=== PATIENT | male | born 1985 | race Caucasian/White ===

== ENCOUNTER → 2016-11-11 | Outpatient (CLI) | payer BC | LOC: MW.CHFP 14:38 | PROVIDERS: ATTEND Physician Assistant | DX: Z13.1 Encounter for screening for diabetes mellitus (principal); S39.012A Strain of muscle, fascia and tendon of lower back, initial encounter; M25.50 Pain in unspecified joint | CPT/HCPCS: 36415; 83036; 84550; 86200 ==

== ENCOUNTER 2017-02-14 19:07 | Emergency (ER) | payer BC ==
--- NOTE | 2017-02-14 19:59 | EDM.PDOC ---
ED HPI GENERAL MEDICAL PROBLEM - General Chief Complaint: Respiratory Problem Stated Complaint: COUGH/CONGESTION WEAK Time Seen by Provider: 02/14/17 19:15 Source of Information: Reports: Patient History Limitations: Reports: No Limitations - History of Present Illness INITIAL COMMENTS - FREE TEXT/NARRATIVE: HISTORY AND PHYSICAL: History of present illness: [Patient comes to the emergency room complaining of 5 days of fever and chills, cough chest congestion and generalized malaise. A couple of days ago he had some episodes of vomiting which he attributes to postnasal drainage and coughing. Temperature has been up to 102.1 earlier this morning. Symptoms feel similar to how he felt a couple of years ago when he had influenza A. Recently traveled to [place] for several weeks and return home on Thursday. He's been taking Sudafed, Robitussin, NyQuil, DayQuil without any improvement in his symptoms. No medication allergies. Throat has been sore and anterior neck. Denies chest pain but admits to a feeling of burning in both lungs. Mild shortness of breath but no difficulty breathing. Cough is nonproductive. Abdomen is tender from episodes of vomiting. Otherwise no pain. No current nausea vomiting constipation or diarrhea. No swelling to his feet or lower legs. Denies earaches.] Review of systems: As per history of present illness and below otherwise all systems reviewed and negative. Past medical history: As per history of present illness and as reviewed below otherwise noncontributory. Surgical history: As per history of present illness and as reviewed below otherwise noncontributory. Social history: No reported history of drug or alcohol abuse. Family history: As per history of present illness and as reviewed below otherwise noncontributory. Physical exam: Gen.: Overweight well-developed well-nourished male in no acute distress. Appears tired and to not be feeling well. HEENT: Atraumatic, normocephalic. TMs are pearly bacon without erythema. Nares are patent. Oral mucous membranes are pink and moist. Posterior oropharynx is erythematous no exudate appreciated. Neck is supple. Mild anterior cervical lymphadenopathy bilaterally, none posteriorly. Lungs: Wheezing is appreciated throughout all lung brower. No overt rales or rhonchi. breath sounds equal bilaterally, chest nontender. Heart: S1S2, regular rate and rhythm. Abdomen: Bowel sounds are normoactive throughout. Mildly tender with palpation over epigastric area. Abdomen is soft and nondistended. No masses guarding or rebound. No CVA tenderness. Pelvis: Stable nontender. Genitourinary: Deferred. Rectal: Deferred. Extremities: Atraumatic, negative for cords or calf pain. No cyanosis or edema to feet or lower legs. Neurovascular unremarkable. Neuro: Awake, alert, oriented. Motor and sensory unremarkable throughout. Exam nonfocal. Diagnostics: [CBC, CMP, UA, chest x-ray, influenza A and B, mono, strep swab] Therapeutics: [1 L normal saline at 500 miles per hour] Impression: [Cough] Plan: [Discussed with patient that all of his lab findings and chest x-ray are completely normal. His cough is likely viral in nature. We discussed over-the- counter treatments and he is also prescribed Phenergan with codeine cough syrup 120 mL's take 1 teaspoon at bedtime as needed for cough 0 refills. Did not take this medication driving or working. Follow-up with primary care. Return precautions are discussed. He is in agreement with today's plan.] Definitive disposition and diagnosis as appropriate pending reevaluation and review of above. chest Pain Score (Numeric/FACES): 4 - Related Data Allergies Allergy/AdvReac Type Severity Reaction Status Date / Time No Known Allergies Allergy Verified 02/14/17 19:12 Home Meds: Home Meds Allopurinol [Zyloprim] 300 mg PO DAILY 02/14/17 [History] Testosterone Injection 02/14/17 [History] Social & Family History - Tobacco Use Smoking Status *Q: Never Smoker Years of Tobacco use: 14 Used Tobacco, but Quit: No - Alcohol Use Days Per Week of Alcohol Use: 1 Number of Drinks Per Day: 3 Total Drinks Per Week: 3 - Recreational Drug Use Recreational Drug Use: No ED ROS GENERAL - Review of Systems Review Of Systems: ROS reveals no pertinent complaints other than HPI. ED EXAM, GENERAL - Physical Exam Exam: See Below Course - Vital Signs Last Recorded V/S: Last Vital Signs Temp 100.1 F 02/14/17 19:21 Pulse 121 H 02/14/17 19:10 Resp 20 02/14/17 19:10 BP 175/106 H 02/14/17 19:10 Pulse Ox 96 02/14/17 19:10 - Orders/Labs/Meds Orders: Active Orders 24 hr Category Date Time Status Chest 2V [CR] Stat Exams 02/14/17 19:58 Taken STREP SCRN A RAPID W CULT CONF [RM] Stat Lab 02/14/17 20:05 Results UA W/MICROSCOPIC [URIN] Stat Lab 02/14/17 21:30 Received Sodium Chloride 0.9% [Normal Saline] 1,000 ml Med 02/14/17 20:03 Active IV STAT Medication Orders Sodium Chloride (Normal Saline) 1,000 mls @ 500 mls/hr IV STAT ONE Stop: 02/14/17 22:02 Last Admin: 02/14/17 20:23 Dose: 500 mls/hr Labs: Laboratory Tests 02/14/17 02/14/17 02/14/17 Range/Units 20:20 20:20 20:20 WBC 7.01 (4.0-11.0) K/uL RBC 5.41 (4.50-5.90) M/uL Hgb 16.5 (13.0-17.0) g/dL Hct 47.5 (38.0-50.0) % MCV 87.8 (80.0-98.0) fL MCH 30.5 (27.0-32.0) pg MCHC 34.7 (31.0-37.0) g/dL RDW Std Deviation 44.2 (28.0-62.0) fl RDW Coeff of James 14 (11.0-15.0) % Plt Count 193 (150-400) K/uL MPV 10.00 (7.40-12.00) fL Neut % (Auto) 53.8 (48.0-80.0) % Lymph % (Auto) 30.2 (16.0-40.0) % [place] % (Auto) 11.8 (0.0-15.0) % Eos % (Auto) 3.6 (0.0-7.0) % Baso % (Auto) 0.6 (0.0-1.5) % Neut # (Auto) 3.8 (1.4-5.7) K/uL Lymph # (Auto) 2.1 (0.6-2.4) K/uL [place] # (Auto) 0.8 (0.0-0.8) K/uL Eos # (Auto) 0.3 (0.0-0.7) K/uL Baso # (Auto) 0.0 (0.0-0.1) K/uL Nucleated RBC % 0.0 /100WBC Nucleated RBCs # 0 K/uL Lactate 1.0 (0.20-2.00) mmol/L Sodium 138 (136-146) mmol/L Potassium 3.7 (3.5-5.1) mmol/L Chloride 105 (98-110) mmol/L Carbon Dioxide 23 (21-31) mmol/L BUN 8 (6.0-23.0) mg/dL Creatinine 0.8 (0.6-1.5) mg/dL Est Cr Clr Drug Dosing 142.49 mL/min Estimated GFR (MDRD) > 60.0 ml/min Glucose 94 (60-110) mg/dL Calcium 9.1 (8.8-10.8) mg/dL Total Bilirubin 0.9 (0.1-1.5) mg/dL AST 36 (5-40) IU/L ALT 53 (8-54) IU/L Alkaline Phosphatase 48 (40-150) Total Protein 8.2 H (6.0-8.0) g/dL Albumin 4.4 (3.5-5.0) g/dL Globulin 3.8 H (2.0-3.5) g/dL Albumin/Globulin Ratio 1.2 L (1.3-2.8) Monoscreen (NEG) 02/14/17 Range/Units 20:20 WBC (4.0-11.0) K/uL RBC (4.50-5.90) M/uL Hgb (13.0-17.0) g/dL Hct (38.0-50.0) % MCV (80.0-98.0) fL MCH (27.0-32.0) pg MCHC (31.0-37.0) g/dL RDW Std Deviation (28.0-62.0) fl RDW Coeff of James (11.0-15.0) % Plt Count (150-400) K/uL MPV (7.40-12.00) fL Neut % (Auto) (48.0-80.0) % Lymph % (Auto) (16.0-40.0) % [place] % (Auto) (0.0-15.0) % Eos % (Auto) (0.0-7.0) % Baso % (Auto) (0.0-1.5) % Neut # (Auto) (1.4-5.7) K/uL Lymph # (Auto) (0.6-2.4) K/uL [place] # (Auto) (0.0-0.8) K/uL Eos # (Auto) (0.0-0.7) K/uL Baso # (Auto) (0.0-0.1) K/uL Nucleated RBC % /100WBC Nucleated RBCs # K/uL Lactate (0.20-2.00) mmol/L Sodium (136-146) mmol/L Potassium (3.5-5.1) mmol/L Chloride (98-110) mmol/L Carbon Dioxide (21-31) mmol/L BUN (6.0-23.0) mg/dL Creatinine (0.6-1.5) mg/dL Est Cr Clr Drug Dosing mL/min Estimated GFR (MDRD) ml/min Glucose (60-110) mg/dL Calcium (8.8-10.8) mg/dL Total Bilirubin (0.1-1.5) mg/dL AST (5-40) IU/L ALT (8-54) IU/L Alkaline Phosphatase (40-150) Total Protein (6.0-8.0) g/dL Albumin (3.5-5.0) g/dL Globulin (2.0-3.5) g/dL Albumin/Globulin Ratio (1.3-2.8) Monoscreen NEGATIVE (NEG) Meds: Medications Generic Name Dose Route Start Last Admin Trade Name Freq PRN Reason Stop Dose Admin Sodium Chloride 1,000 mls @ 500 mls/hr 02/14/17 20:03 02/14/17 20:23 Normal Saline IV 02/14/17 22:02 500 mls/hr STAT ONE Administration Departure - Departure Time of Disposition: 21:35 Disposition: Home, Self-Care 01 Condition: Good Clinical Impression: Cough - Discharge Information Instructions: Cough, Adult, [id number] Referrals: PCP,None [Primary Care Provider] - Forms: ED Department Discharge Additional Instructions: The following information is given to patients seen in the emergency department who are being discharged to home. This information is to outline your options for follow-up care. We provide all patients seen in our emergency department with a follow-up referral. The need for follow-up, as well as the timing and circumstances, are variable depending upon the specifics of your emergency department visit. If you don't have a primary care physician on staff, we will provide you with a referral. We always advise you to contact your personal physician following an emergency department visit to inform them of the circumstance of the visit and for follow-up with them and/or the need for any referrals to a consulting specialist. The emergency department will also refer you to a specialist when appropriate. This referral assures that you have the opportunity for follow-up care with a specialist. All of these measure are taken in an effort to provide you with optimal care, which includes your follow-up. Under all circumstances we always encourage you to contact your private physician who remains a resource for coordinating your care. When calling for follow-up care, please make the office aware that this follow-up is from your recent emergency room visit. If for any reason you are refused follow-up, please contact the [facility] emergency department at and asked to speak to the emergency department charge nurse. [address] [address] Follow-up with your primary care provider or at the clinic listed above in 48- 72 hours. Tylenol today with ibuprofen as needed for discomfort or fever. Mucinex to thin mucus and to relieve cough. Robitussin or Delsym cough syrup as needed for cough. Return to ER as needed as discussed. - My Orders Last 24 Hours: My Active Orders 02/14/17 19:58 Chest 2V [CR] Stat 02/14/17 20:03 Sodium Chloride 0.9% [Normal Saline] 1,000 ml IV STAT 02/14/17 20:05 STREP SCRN A RAPID W CULT CONF [RM] Stat 02/14/17 21:30 UA W/MICROSCOPIC [URIN] Stat - Assessment/Plan Last 24 Hours: My Active Orders 02/14/17 19:58 Chest 2V [CR] Stat 02/14/17 20:03 Sodium Chloride 0.9% [Normal Saline] 1,000 ml IV STAT 02/14/17 20:05 STREP SCRN A RAPID W CULT CONF [RM] Stat 02/14/17 21:30 UA W/MICROSCOPIC [URIN] Stat
[2017-02-14] MEDS ORDERED: Sodium Chloride 0.9% 1,000 ML IV ONE (20:03)
[2017-02-14 20:44] LABS: CHLORIDE,CL 105 mmol/L (98-110); SODIUM,NA 138 mmol/L (136-146)
[2017-02-14 21:52] VITALS: BP 114/76
--- NOTE | 2017-02-16 12:22 | CR ---
EXAM DATE: 02/14/17 PATIENT'S AGE: 31 Patient: KIZZY SCHROEDER Facility: [place], [place] Site . Site : 1985 Study: XRay Chest [id number]/26/2017 8:15:58 PM Ordering Physician: Doctor Scott Final Report: HISTORY: Cough and congestion. TECHNIQUE: Two views of the chest. COMPARISON: No prior. FINDINGS: Cardiac size and pulmonary vasculature are within normal limits. No lung infiltrate or pulmonary edema. No pneumothorax or pleural effusion. No acute bony abnormality. IMPRESSION: No acute disease. Dictated by Michel Shearer MD @ 02/14/2017 8:21:39 PM Dictated by: Michel Shearer MD @ 02/14/2017 20:21:44 (Electronic Signature) [email or web address]
== END 2017-02-14 21:45 | disposition home or self-care (01) ==
LOC: MW.ED 19:07
DX: R05 Cough (principal); R59.0 Localized enlarged lymph nodes
CPT/HCPCS: 36415; 71020; 80053; 81001; 83605; 85025; 86308; 87081; 87804; 87880; 96360; 99285; J7040; 99283

== ENCOUNTER 2018-01-09 09:48 | Emergency (ER) | payer BC ==
[2018-01-09] MEDS ORDERED: Sodium Chloride 0.9% 2.5 ML Syringe FLUSH PRN (10:01)
[2018-01-09] MEDS ORDERED: Sodium Chloride 0.9% 10 ML Syringe FLUSH PRN (10:01)
[2018-01-09] MEDS ORDERED: Aspirin 81 MG Tab.Chew PO ONE (10:02)
--- NOTE | 2018-01-09 10:02 | EDM.PDOC ---
ED HPI GENERAL MEDICAL PROBLEM - General Chief Complaint: Cardiovascular Problem Stated Complaint: CHEST PAIN Time Seen by Provider: 01/09/18 09:51 Source of Information: Reports: Patient History Limitations: Reports: No Limitations - History of Present Illness INITIAL COMMENTS - FREE TEXT/NARRATIVE: History of present illness: []Patient has had 5 days of continuous right-sided chest pain and lightheadedness. Patient states he has two types of pain that are distinctly different one on his chest wall that he can press and reproduce and one inside that is different and worsens with deep breathing. Patient denies any recent illnesses including cough, fevers, chills, nausea, vomiting or diarrhea. He has had the sweats. Patient is also a refill of his albuterol inhaler. Review of systems: As per history of present illness and below otherwise all systems reviewed and negative. Past medical history: As per history of present illness and as reviewed below otherwise noncontributory. Surgical history: As per history of present illness and as reviewed below otherwise noncontributory. Social history: No reported history of drug or alcohol abuse. Family history: As per history of present illness and as reviewed below otherwise noncontributory. Physical exam: General: Well developed, well nourished in NAD HEENT: Atraumatic, normocephalic, pupils reactive, negative for conjunctival pallor or scleral icterus, mucous membranes moist, throat clear, neck supple, nontender, trachea midline. Lungs: Clear to auscultation, breath sounds equal bilaterally, chest nontender. Heart: S1S2, regular, negative for clicks, rubs, or JVD. Abdomen: Soft, nondistended, nontender. Negative for masses or hepatosplenomegaly. Negative for costovertebral tenderness. Pelvis: Stable nontender. Genitourinary: Deferred. Rectal: Deferred. Extremities: Atraumatic, negative for cords or calf pain. Neurovascular unremarkable. Neuro: Awake, alert, oriented. Cranial nerves II through XII unremarkable. Cerebellum unremarkable. Motor and sensory unremarkable throughout. Exam nonfocal. Diagnostics: []EKG normal sinus rhythm without ischemic changes, CBC normal, chemistry normal , d-dimer negative, troponin negative, chest x-ray clear Therapeutics: []Nitroglycerin without change, morphine, Zofran,, IV hydration given and Impression: []Pleurisy, med refill, Plan: []Follow-up with PMD return if symptoms worsen or change. Definitive disposition and diagnosis as appropriate pending reevaluation and review of above. Right Chest Pain Score (Numeric/FACES): 4 - Related Data Allergies Allergy/AdvReac Type Severity Reaction Status Date / Time No Known Allergies Allergy Verified 01/09/18 09:53 Home Meds: Home Meds Allopurinol [Zyloprim] 300 mg PO DAILY 02/14/17 [History] Testosterone Injection 02/14/17 [History] Albuterol [Ventolin HFA] 2 puff INH Q4HR PRN #1 inhaler 01/09/18 [Rx] Past Medical History - Past Health History Medical/Surgical History: Denies Medical/Surgical History Musculoskeletal History: Reports: Gout Endocrine/Metabolic History: Reports: Other (See Below) Other Endocrine/Metabolic History: low testosterone Social & Family History - Family History Family Medical History: Noncontributory ED ROS GENERAL - Review of Systems Review Of Systems: ROS reveals no pertinent complaints other than HPI. ED EXAM, GENERAL - Physical Exam Exam: See Below (See history of present illness) Course - Vital Signs Last Recorded V/S: Last Vital Signs Temp 96.6 F 01/09/18 09:54 Pulse 77 01/09/18 09:54 Resp 16 01/09/18 09:54 BP 130/90 01/09/18 10:23 Pulse Ox 97 01/09/18 09:54 - Orders/Labs/Meds Orders: Active Orders 24 hr Category Date Time Status EKG 12 Lead [EKG Documentation Completion] [RC] STAT Care 01/09/18 09:52 Active EKG Documentation Completion [RC] STAT Care 01/09/18 10:01 Active Chest 1V Frontal [CR] Stat Exams 01/09/18 10:01 Taken Nitroglycerin [Nitrostat] Med 01/09/18 10:02 Active 0.4 mg SL Q5M PRN Sodium Chloride 0.9% [Normal Saline] 1,000 ml Med 01/09/18 10:31 Active IV .Bolus Sodium Chloride 0.9% [Saline Flush] Med 01/09/18 10:01 Active 10 ml FLUSH ASDIRECTED PRN Sodium Chloride 0.9% [Saline Flush] Med 01/09/18 10:01 Active 2.5 ml FLUSH ASDIRECTED PRN Saline Lock Insert [OM.PC] Stat Oth 01/09/18 10:01 Ordered Medication Orders Sodium Chloride (Normal Saline) 1,000 mls @ 999 mls/hr IV .Bolus ONE Stop: 01/09/18 11:31 Last Admin: 01/09/18 10:49 Dose: 999 mls/hr Nitroglycerin (Nitrostat) 0.4 mg SL Q5M PRN PRN Reason: Chest Pain Last Admin: 01/09/18 10:23 Dose: 0.4 mg Admin: 01/09/18 10:18 Dose: 0.4 mg Sodium Chloride (Saline Flush) 10 ml FLUSH ASDIRECTED PRN PRN Reason: Keep Vein Open Sodium Chloride (Saline Flush) 2.5 ml FLUSH ASDIRECTED PRN PRN Reason: Keep Vein Open Labs: Laboratory Tests 01/09/18 01/09/18 01/09/18 Range/Units 10:09 10:09 10:09 WBC 8.34 (4.0-11.0) K/uL RBC 5.67 (4.50-5.90) M/uL Hgb 17.8 H (13.0-17.0) g/dL Hct 50.9 H (38.0-50.0) % MCV 89.8 (80.0-98.0) fL MCH 31.4 (27.0-32.0) pg MCHC 35.0 (31.0-37.0) g/dL RDW Std Deviation 44.3 (28.0-62.0) fl RDW Coeff of James 14 (11.0-15.0) % Plt Count 190 (150-400) K/uL MPV 10.00 (7.40-12.00) fL Neut % (Auto) 60.9 (48.0-80.0) % Lymph % (Auto) 28.8 (16.0-40.0) % [place] % (Auto) 7.7 (0.0-15.0) % Eos % (Auto) 2.2 (0.0-7.0) % Baso % (Auto) 0.4 (0.0-1.5) % Neut # (Auto) 5.1 (1.4-5.7) K/uL Lymph # (Auto) 2.4 (0.6-2.4) K/uL [place] # (Auto) 0.6 (0.0-0.8) K/uL Eos # (Auto) 0.2 (0.0-0.7) K/uL Baso # (Auto) 0.0 (0.0-0.1) K/uL Nucleated RBC % 0.0 /100WBC Nucleated RBCs # 0 K/uL D-Dimer, Quantitative < 0.19 (0.0-0.52) mg/LFEU Sodium 136 (136-148) mmol/L Potassium 4.0 (3.5-5.1) mmol/L Chloride 104 (98-107) mmol/L Carbon Dioxide 23.3 (21.0-32.0) mmol/L BUN 8 (7.0-18.0) mg/dL Creatinine 0.9 (0.8-1.3) mg/dL Est Cr Clr Drug Dosing 125.50 mL/min Estimated GFR (MDRD) > 60.0 ml/min Glucose 109 H (74-106) mg/dL Calcium 8.6 (8.5-10.1) mg/dL Total Bilirubin 0.6 (0.2-1.0) mg/dL AST 29 (15-37) IU/L ALT 58 (14-63) IU/L Alkaline Phosphatase 51 (46-116) U/L Troponin I < 0.050 (0.000-0.056) ng/mL Total Protein 7.5 (6.4-8.2) g/dL Albumin 3.7 (3.4-5.0) g/dL Globulin 3.8 H (2.0-3.5) g/dL Albumin/Globulin Ratio 1.0 L (1.3-2.8) Meds: Medications Generic Name Dose Route Start Last Admin Trade Name Freq PRN Reason Stop Dose Admin Sodium Chloride 1,000 mls @ 999 mls/hr 01/09/18 10:31 01/09/18 10:49 Normal Saline IV 01/09/18 11:31 999 mls/hr .Bolus ONE Administration Nitroglycerin 0.4 mg 01/09/18 10:02 01/09/18 10:23 Nitrostat SL 0.4 mg Q5M PRN Administration Chest Pain Sodium Chloride 10 ml 07/21/18 10:01 Saline Flush FLUSH ASDIRECTED PRN Keep Vein Open Sodium Chloride 2.5 ml 01/09/18 10:01 Saline Flush FLUSH ASDIRECTED PRN Keep Vein Open Discontinued Medications Generic Name Dose Route Start Last Admin Trade Name Areli PRN Reason Stop Dose Admin Aspirin 324 mg 01/09/18 10:02 01/09/18 10:17 Aspirin PO 01/09/18 10:03 324 mg ONETIME ONE Administration Ketorolac Tromethamine 30 mg 01/09/18 10:46 Toradol IVPUSH 01/09/18 10:47 ONETIME ONE Morphine Sulfate 2 mg 01/09/18 10:31 01/09/18 10:55 Morphine IVPUSH 01/09/18 10:32 2 mg ONETIME ONE Administration Ondansetron HCl 4 mg 01/09/18 10:59 01/09/18 10:59 Zofran IVPUSH 01/09/18 11:00 4 mg ONETIME ONE Administration Ondansetron HCl Confirm 01/09/18 10:58 Zofran Administered 01/09/18 10:59 Dose 4 mg .ROUTE .STK-MED ONE Departure - Departure Time of Disposition: 11:30 Disposition: Home, Self-Care 01 Condition: Good Clinical Impression: Pleurisy Prescriptions: Albuterol [Ventolin HFA] 2 puff INH Q4HR PRN #1 inhaler PRN Reason: Shortness Of Breath Referrals: PCP,Unknown [Primary Care Provider] - Forms: ED Department Discharge Additional Instructions: The following information is given to patients seen in the emergency department who are being discharged to home. This information is to outline your options for follow-up care. We provide all patients seen in our emergency department with a follow-up referral. The need for follow-up, as well as the timing and circumstances, are variable depending upon the specifics of your emergency department visit. If you don't have a primary care physician on staff, we will provide you with a referral. We always advise you to contact your personal physician following an emergency department visit to inform them of the circumstance of the visit and for follow-up with them and/or the need for any referrals to a consulting specialist. The emergency department will also refer you to a specialist when appropriate. This referral assures that you have the opportunity for follow-up care with a specialist. All of these measure are taken in an effort to provide you with optimal care, which includes your follow-up. Under all circumstances we always encourage you to contact your private physician who remains a resource for coordinating your care. When calling for follow-up care, please make the office aware that this follow-up is from your recent emergency room visit. If for any reason you are refused follow-up, please contact the [facility] Emergency Department at and asked to speak to the emergency department charge nurse. [facility] [address] [place] [id number] - My Orders Last 24 Hours: My Active Orders 01/09/18 09:52 EKG 12 Lead [EKG Documentation Completion] [RC] STAT 01/09/18 10:01 EKG Documentation Completion [RC] STAT Chest 1V Frontal [CR] Stat Sodium Chloride 0.9% [Saline Flush] 10 ml FLUSH ASDIRECTED PRN Sodium Chloride 0.9% [Saline Flush] 2.5 ml FLUSH ASDIRECTED PRN Saline Lock Insert [OM.PC] Stat 01/09/18 10:02 Nitroglycerin [Nitrostat] 0.4 mg SL Q5M PRN 01/09/18 10:31 Sodium Chloride 0.9% [Normal Saline] 1,000 ml IV .Bolus - Assessment/Plan Last 24 Hours: My Active Orders 01/09/18 09:52 EKG 12 Lead [EKG Documentation Completion] [RC] STAT 01/09/18 10:01 EKG Documentation Completion [RC] STAT Chest 1V Frontal [CR] Stat Sodium Chloride 0.9% [Saline Flush] 10 ml FLUSH ASDIRECTED PRN Sodium Chloride 0.9% [Saline Flush] 2.5 ml FLUSH ASDIRECTED PRN Saline Lock Insert [OM.PC] Stat 01/09/18 10:02 Nitroglycerin [Nitrostat] 0.4 mg SL Q5M PRN 01/09/18 10:31 Sodium Chloride 0.9% [Normal Saline] 1,000 ml IV .Bolus
[2018-01-09] MEDS: Nitroglycerin 0.4 MG Tab.SL SL PRN ×2 (10:18→10:23)
[2018-01-09] MEDS ORDERED: Sodium Chloride 0.9% 1,000 ML IV ONE (10:31)
[2018-01-09] MEDS ORDERED: Morphine 2 MG/ML Syringe IVPUSH ONE (10:31)
[2018-01-09 10:40] LABS: CHLORIDE,CL 104 mmol/L (98-107); SODIUM,NA 136 mmol/L (136-148)
[2018-01-09] MEDS ORDERED: Ketorolac 30 MG/ML SDV IVPUSH ONE (10:46)
[2018-01-09] MEDS ORDERED: Ondansetron 4 MG/2 ML SDV ONE (10:58)
[2018-01-09] MEDS ORDERED: Ondansetron 4 MG/2 ML SDV IVPUSH ONE (10:59)
[2018-01-09 11:42] VITALS: BP 110/64
--- NOTE | 2018-01-11 11:38 | CR ---
EXAM DATE: 01/09/18 PATIENT'S AGE: 32 Patient: KIZZY SCHROEDER Facility: [place], [place] Site . Site : 1985 Study: XRay Chest [id number]/21/2018 10:45:53 AM Ordering Physician: Neville Collado Final Report: HISTORY: Chest pain and [id number]. FINDINGS: Single AP view of the chest is provided. The lungs are clear and there is no evidence for pleural effusion or pneumothorax. Cardiac silhouette size is within normal limits. IMPRESSION: Clear lungs. Dictated by Stiven Eid MD @ Jan 09 2018 11:10AM (Electronic Signature) Report Signed by Proxy. REGINA
== END 2018-01-09 12:01 | disposition home or self-care (01) ==
LOC: MW.ED 09:48
DX: R09.1 Pleurisy (principal); Z79.899 Other long term (current) drug therapy
CPT/HCPCS: 36415; 71045; 80053; 84484; 85025; 85379; 93005; 96361; 96374; 96375; 99285; A9270; J2270; J2405; J7040

== ENCOUNTER 2018-02-18 20:03 | Emergency (ER) | payer BC ==
--- NOTE | 2018-02-18 20:19 | EDM.PDOC ---
ED HPI GENERAL MEDICAL PROBLEM - General Chief Complaint: Abdominal Pain Stated Complaint: PAIN IN THE LOWER ABDOMINE Time Seen by Provider: 02/18/18 20:18 Source of Information: Reports: Patient History Limitations: Reports: No Limitations - History of Present Illness INITIAL COMMENTS - FREE TEXT/NARRATIVE: HISTORY AND PHYSICAL: History of present illness: 32-year-old male presenting with [employer] chief complaint of left lower outer pain 1 week with past medical history of asthma Patient states that for the past week he's had increasing left lower outer pain. States that he has had pain in this area for over a month and has seen his physician for this. They were planning to do an ultrasound for possible hernia. States that the pain does not go into the inguinal area or testicle. States that he recently had a cold and was coughing which he thinks made the pain worse. He does report feeling a "tearing sensation" in his left lower quadrant area after he coughed. Coughing has stopped but the pain has continued. Denies any change in pain with lifting or straining. He denies any bowel or bladder issues. Denies any bloody stool or dark tarry stools. Denies pain with defecation. He denies any associated fever, chills, nausea, vomiting, diarrhea, or other signs of systemic infection. Otherwise he feels fine. He has a history of asthma for which he takes albuterol rescue inhaler. He also takes testosterone. He currently denies any chest pain, palpitations, shortness of breath, syncopal episodes, or focal neurologic deficits. On exam patient has left lower quadrant pain. I do feel a small bulge in the LLQ when he does cough. This is above the inguinal canal. No other abnormalities found on exam. 2120: CBC showed mild leukocytosis of 12,000, CMP, lipase, UA all unremarkable. CT abdomen and pelvis pending Review of systems: As per history of present illness and below otherwise all systems reviewed and negative. Past medical history: As per history of present illness and as reviewed below otherwise noncontributory. Surgical history: As per history of present illness and as reviewed below otherwise noncontributory. Social history: No reported history of drug or alcohol abuse. Family history: As per history of present illness and as reviewed below otherwise noncontributory. Physical exam: see above H&P HEENT: Atraumatic, normocephalic, pupils reactive, negative for conjunctival pallor or scleral icterus, mucous membranes moist, throat clear, neck supple, nontender, trachea midline. Lungs: Clear to auscultation, breath sounds equal bilaterally, chest nontender. Heart: S1S2, regular, negative for clicks, rubs, or JVD. Abdomen: Soft, nondistended, left lower quadrant tenderness. Negative for masses or hepatosplenomegaly. Negative for costovertebral tenderness. Pelvis: Stable nontender. Genitourinary: Deferred. Rectal: Deferred. Extremities: Atraumatic, negative for cords or calf pain. Neurovascular unremarkable. Neuro: Awake, alert, oriented. Cranial nerves II through XII unremarkable. Cerebellum unremarkable. Motor and sensory unremarkable throughout. Exam nonfocal. Diagnostics: CBC, CMP, lipase, UA, CT abdomen pelvis Therapeutics: Toradol 30 mg IV 1, 1 L normal saline 1 Impression: Left lower quadrant pain Plan: CBC, CMP, lipase, UA, and CT abdomen pelvis was unremarkable. I did call Dr. Reynolds, surgeon aviation manager, who instructed us to have the patient follow-up with them and call in the morning to make an appointment. Patient was in understanding and was discharged in good condition with instructions to follow- up with surgery and return to emergency department if any new or worsening symptoms. Definitive disposition and diagnosis as appropriate pending reevaluation and review of above. LLQ Abd Pain Score (Numeric/FACES): 6 - Related Data Allergies Allergy/AdvReac Type Severity Reaction Status Date / Time No Known Allergies Allergy Verified 02/18/18 20:10 Home Meds: Home Meds Allopurinol [Zyloprim] 300 mg PO DAILY 02/14/17 [History] Testosterone Injection 02/14/17 [History] Albuterol [Ventolin HFA] 2 puff INH Q4HR PRN #1 inhaler 01/09/18 [Rx] Past Medical History - Past Health History Medical/Surgical History: Denies Medical/Surgical History Musculoskeletal History: Reports: Gout Endocrine/Metabolic History: Reports: Other (See Below) Other Endocrine/Metabolic History: low testosterone - Infectious Disease History Infectious Disease History: Reports: None Social & Family History - Family History Family Medical History: Noncontributory - Caffeine Use Caffeine Use: Reports: Coffee, Energy Drinks, Soda, Tea ED ROS GENERAL - Review of Systems Review Of Systems: ROS reveals no pertinent complaints other than HPI. ED EXAM, GENERAL - Physical Exam Exam: See Below Course - Vital Signs Last Recorded V/S: Last Vital Signs Temp 97.2 F 02/18/18 21:41 Pulse 66 02/18/18 21:41 Resp 18 02/18/18 21:41 BP 144/81 H 02/18/18 21:41 Pulse Ox 96 02/18/18 20:13 - Orders/Labs/Meds Orders: Active Orders 24 hr Category Date Time Status Abdomen Pelvis w Cont [CT] Stat Exams 02/18/18 20:25 Taken UA W/MICROSCOPIC [URIN] Stat Lab 02/18/18 20:35 Ordered Sodium Chloride 0.9% [Saline Flush] Med 02/18/18 20:25 Active 10 ml FLUSH ASDIRECTED PRN Sodium Chloride 0.9% [Saline Flush] Med 02/18/18 20:25 Active 2.5 ml FLUSH ASDIRECTED PRN Sodium Chloride 0.9% [Saline Flush] Med 02/18/18 20:25 Active 2.5 ml FLUSH ASDIRECTED PRN Saline Lock Insert [OM.PC] Stat Oth 02/18/18 20:25 Ordered Medication Orders Sodium Chloride (Saline Flush) 2.5 ml FLUSH ASDIRECTED PRN PRN Reason: Keep Vein Open Last Admin: 02/18/18 20:31 Dose: 2.5 ml Sodium Chloride (Saline Flush) 10 ml FLUSH ASDIRECTED PRN PRN Reason: Keep Vein Open Last Admin: 02/18/18 20:30 Dose: 10 ml Sodium Chloride (Saline Flush) 2.5 ml FLUSH ASDIRECTED PRN PRN Reason: Keep Vein Open Labs: Laboratory Tests 02/18/18 02/18/18 02/18/18 Range/Units 20:30 20:30 20:35 WBC 11.97 H (4.0-11.0) K/uL RBC 5.72 (4.50-5.90) M/uL Hgb 18.2 H (13.0-17.0) g/dL Hct 50.7 H (38.0-50.0) % MCV 88.6 (80.0-98.0) fL MCH 31.8 (27.0-32.0) pg MCHC 35.9 (31.0-37.0) g/dL RDW Std Deviation 41.8 (28.0-62.0) fl RDW Coeff of James 13 (11.0-15.0) % Plt Count 212 (150-400) K/uL MPV 10.00 (7.40-12.00) fL Neut % (Auto) 65.4 (48.0-80.0) % Lymph % (Auto) 26.8 (16.0-40.0) % [place] % (Auto) 5.8 (0.0-15.0) % Eos % (Auto) 1.8 (0.0-7.0) % Baso % (Auto) 0.2 (0.0-1.5) % Neut # (Auto) 7.8 H (1.4-5.7) K/uL Lymph # (Auto) 3.2 H (0.6-2.4) K/uL [place] # (Auto) 0.7 (0.0-0.8) K/uL Eos # (Auto) 0.2 (0.0-0.7) K/uL Baso # (Auto) 0.0 (0.0-0.1) K/uL Nucleated RBC % 0.0 /100WBC Nucleated RBCs # 0 K/uL Sodium 137 (136-148) mmol/L Potassium 3.7 (3.5-5.1) mmol/L Chloride 102 (98-107) mmol/L Carbon Dioxide 26.1 (21.0-32.0) mmol/L BUN 11 (7.0-18.0) mg/dL Creatinine 1.0 (0.8-1.3) mg/dL Est Cr Clr Drug Dosing 112.95 mL/min Estimated GFR (MDRD) > 60.0 ml/min Glucose 86 (74-106) mg/dL Calcium 9.1 (8.5-10.1) mg/dL Total Bilirubin 0.8 (0.2-1.0) mg/dL AST 28 (15-37) IU/L ALT 57 (14-63) IU/L Alkaline Phosphatase 54 (46-116) U/L Total Protein 8.3 H (6.4-8.2) g/dL Albumin 4.1 (3.4-5.0) g/dL Globulin 4.2 H (2.0-3.5) g/dL Albumin/Globulin Ratio 1.0 L (1.3-2.8) Lipase 149 (73-393) U/L Urine Color YELLOW Urine Appearance CLEAR Urine pH 6.0 (5.0-8.0) Ur Specific [place] >= 1.030 (1.001-1.035) Urine Protein 30 (NEGATIVE) mg/dL Urine Glucose (UA) NEGATIVE (NEGATIVE) mg/dL Urine Ketones TRACE H (NEGATIVE) mg/dL Urine Occult Blood SMALL H (NEGATIVE) Urine Nitrite NEGATIVE (NEGATIVE) Urine Bilirubin NEGATIVE (NEGATIVE) Urine Urobilinogen 0.2 (<2.0) EU/dL Ur Leukocyte Esterase NEGATIVE (NEGATIVE) Urine RBC 1-4 (0-2/HPF) Urine WBC 0-2 (0-5/HPF) Ur Epithelial Cells NOT SEEN (NONE-FEW) Urine Bacteria RARE (NEGATIVE) Urine Mucus FEW (NONE-MOD) Meds: Medications Generic Name Dose Route Start Last Admin Trade Name Abdulazizq PRN Reason Stop Dose Admin Sodium Chloride 2.5 ml 02/18/18 20:25 02/18/18 20:31 Saline Flush FLUSH 2.5 ml ASDIRECTED PRN Administration Keep Vein Open Sodium Chloride 10 ml 02/18/18 20:25 02/18/18 20:30 Saline Flush FLUSH 10 ml ASDIRECTED PRN Administration Keep Vein Open Sodium Chloride 2.5 ml 02/18/18 20:25 Saline Flush FLUSH ASDIRECTED PRN Keep Vein Open Discontinued Medications Generic Name Dose Route Start Last Admin Trade Name Areli PRN Reason Stop Dose Admin Sodium Chloride 1,000 mls @ 999 mls/hr 02/18/18 20:25 02/18/18 20:37 Normal Saline IV 02/18/18 21:25 999 mls/hr BOLUS ONE Administration Iopamidol 100 ml 02/18/18 21:34 02/18/18 21:35 Isovue Multipack-370 (76%) IVPUSH 02/18/18 21:35 100 ml ONETIME STA Administration Ketorolac Tromethamine 30 mg 02/18/18 20:25 02/18/18 20:37 Toradol IVPUSH 02/18/18 20:26 30 mg ONETIME ONE Administration Departure - Departure Time of Disposition: 22:15 Disposition: Home, Self-Care 01 Condition: Good Clinical Impression: Left lower quadrant pain, Hernia of abdominal wall - Discharge Information Referrals: PCP,None [Primary Care Provider] - Forms: ED Department Discharge Additional Instructions: My general discharge The following information is given to patients seen in the emergency department who are being discharged to home. This information is to outline your options for follow-up care. We provide all patients seen in our emergency department with a follow-up referral. The need for follow-up, as well as the timing and circumstances, are variable depending upon the specifics of your emergency department visit. If you don't have a primary care physician on staff, we will provide you with a referral. We always advise you to contact your personal physician following an emergency department visit to inform them of the circumstance of the visit and for follow-up with them and/or the need for any referrals to a consulting specialist. The emergency department will also refer you to a specialist when appropriate. This referral assures that you have the opportunity for follow-up care with a specialist. All of these measure are taken in an effort to provide you with optimal care, which includes your follow-up. Under all circumstances we always encourage you to contact your private physician who remains a resource for coordinating your care. When calling for follow-up care, please make the office aware that this follow-up is from your recent emergency room visit. If for any reason you are refused follow-up, please contact the [facility] Emergency Department at and asked to speak to the emergency department charge nurse. My General Surgery [facility] Specialty Care - General Surgery Professional Building [address] [place] [address], [address] [place] [address] Please follow-up with general surgery as we discussed. Return to emergency department if any new or worsening symptoms. - My Orders Last 24 Hours: My Active Orders 02/18/18 20:25 Abdomen Pelvis w Cont [CT] Stat Sodium Chloride 0.9% [Saline Flush] 10 ml FLUSH ASDIRECTED PRN Sodium Chloride 0.9% [Saline Flush] 2.5 ml FLUSH ASDIRECTED PRN Sodium Chloride 0.9% [Saline Flush] 2.5 ml FLUSH ASDIRECTED PRN Saline Lock Insert [OM.PC] Stat 02/18/18 20:35 UA W/MICROSCOPIC [URIN] Stat - Assessment/Plan Last 24 Hours: My Active Orders 02/18/18 20:25 Abdomen Pelvis w Cont [CT] Stat Sodium Chloride 0.9% [Saline Flush] 10 ml FLUSH ASDIRECTED PRN Sodium Chloride 0.9% [Saline Flush] 2.5 ml FLUSH ASDIRECTED PRN Sodium Chloride 0.9% [Saline Flush] 2.5 ml FLUSH ASDIRECTED PRN Saline Lock Insert [OM.PC] Stat 02/18/18 20:35 UA W/MICROSCOPIC [URIN] Stat
[2018-02-18] MEDS ORDERED: Sodium Chloride 0.9% 2.5 ML Syringe FLUSH PRN ×2 (20:25)
[2018-02-18] MEDS ORDERED: Sodium Chloride 0.9% 10 ML Syringe FLUSH PRN (20:25)
[2018-02-18] MEDS ORDERED: Sodium Chloride 0.9% 1,000 ML IV ONE (20:25)
[2018-02-18] MEDS ORDERED: Ketorolac 30 MG/ML SDV IVPUSH ONE (20:25)
[2018-02-18 21:04] LABS: CHLORIDE,CL 102 mmol/L (98-107); SODIUM,NA 137 mmol/L (136-148)
[2018-02-18] MEDS ORDERED: Iopamidol 755 MG/ML 500 ML Multipack Bottle IVPUSH STA (21:34)
[2018-02-18 22:26] VITALS: BP 129/87
--- NOTE | 2018-02-19 19:37 | CT ---
EXAM DATE: 02/18/18 PATIENT'S AGE: 32 Patient: KIZZY SCHROEDER Facility: [place], [place] Site . Site : 1985 Study: CT Abdomen/Pelvis [id number]/30/2018 9:33:38 PM Ordering Physician: Brandon Neal Final Report: INDICATION: Left lower quadrant abdominal pain. CT ABDOMEN AND PELVIS WITH CONTRAST TECHNIQUE: Multidetector CT imaging was performed through the abdomen and pelvis following intravenous contrast administration using 100 mL Isovue 370. Coronal and sagittal reconstructions were generated. COMPARISON: None. FINDINGS: Lower chest: Lung bases are clear. Liver: Within normal limits. Gallbladder and bile ducts: No gallbladder wall thickening or calcified gallstones. No biliary dilation identified. Pancreas: Unremarkable. Spleen: Normal. Adrenals: No nodules or masses. Kidneys, ureters, and urinary bladder: Tiny hypodensity in the anterior aspect of the lower pole of the left kidney, too small to characterize but likely benign, probably a tiny cyst. No hydronephrosis. No bladder mass or definite wall thickening. Gastrointestinal tract: Normal caliber small bowel without wall thickening. The appendix is normal. Numerous diverticula of the descending and sigmoid colon, without convincing evidence of diverticulitis. Vascular structures: Normal for age. Peritoneum: No free air, abscess, or significant free fluid. Lymph nodes: No pathologically enlarged nodes identified. Reproductive organs: No pelvic masses. Bones: Normal for age. IMPRESSION: 1. No definite acute abnormality identified. No specific cause for the patient` s symptoms is demonstrated. 2. Colonic diverticulosis without convincing evidence of diverticulitis. SHIREEN SPENCER MD [employer] Dictated by Aravind Spencer MD @ 02/18/2018 9:52:00 PM Dictated by: Aravind Spencer MD @ 02/18/2018 21:52:19 (Electronic Signature) Report Signed by Proxy. [facility] SYSTEMSarah
== END 2018-02-18 22:26 | disposition home or self-care (01) ==
LOC: MW.ED 20:03
DX: K43.9 Ventral hernia without obstruction or gangrene (principal); Z79.899 Other long term (current) drug therapy
CPT/HCPCS: 36415; 74177; 80053; 81001; 83690; 85025; 96361; 96374; 99284; J1885; J7040; Q9967

== ENCOUNTER 2018-07-16 16:19 | Emergency (ER) | payer BC ==
[2018-07-16] MEDS ORDERED: Sodium Chloride 0.9% 1,000 ML IV ONE (16:22)
--- NOTE | 2018-07-16 16:23 | EDM.PDOC ---
ED HPI GENERAL MEDICAL PROBLEM - General Stated Complaint: DIZZY SPELLS, FAINTING Time Seen by Provider: 07/16/18 16:22 Source of Information: Reports: Patient History Limitations: Reports: No Limitations - History of Present Illness INITIAL COMMENTS - FREE TEXT/NARRATIVE: HISTORY AND PHYSICAL: History of present illness: Patient is a 32-year-old male who presents to the emergency room with complaints of headache and dizziness. He states that the pain is located behind the left eye into the temporal area. States that his "normal headaches" only reach a pain of 5/10. He states this pain is a 7 or 8 out of 10. States he does have some light sensitivity, blurred vision and nausea. Denies any head injury, trauma or falls. Since arrival he states that the dizziness has subsided. He denies any syncope or near syncope. Patient has been seen in our emergency room several times in May 2018 for abnormal motor movement. This did involve an admission for further evaluation and management. He states that they have not had a definitive answer why he was having tremors. He was placed on propranolol. That time has not had any significant breakthrough tremors. He has an appointment with Dr. Mcmahon on July 31, 2018. He denies any fever, chills, chest pain, shortness of breath or cough. Denies any abdominal pain, diarrhea, constipation or dysuria. He has been eating and drinking appropriately Review of systems: As per history of present illness and below otherwise all systems reviewed and negative. Past medical history: As per history of present illness and as reviewed below otherwise noncontributory. Surgical history: As per history of present illness and as reviewed below otherwise noncontributory. Social history: See social history for further information Family history: As per history of present illness and as reviewed below otherwise noncontributory. Physical exam: General: Well-developed and well-nourished 32-year-old male. Alert and oriented. Nontoxic appearing and in no acute distress. HEENT: Atraumatic, normocephalic, pupils equal and reactive bilaterally, negative for conjunctival pallor or scleral icterus, mucous membranes moist, TMs normal bilaterally, throat clear, neck supple, nontender, trachea midline. No drooling or trismus noted. No meningeal signs. No hot potato voice noted. Lungs: Clear to auscultation, breath sounds equal bilaterally, chest nontender. No mastoid bone or temporal tenderness with palpation. Heart: S1S2, regular rate and rhythm without overt murmur Abdomen: Soft, nondistended, nontender. Negative for masses or hepatosplenomegaly. Negative for costovertebral tenderness. Pelvis: Stable nontender. Genitourinary: Deferred. Rectal: Deferred. Skin: Intact, warm, dry. No lesions or rashes noted. Extremities: Atraumatic, moves all extremities per self without difficulty or deficits, negative for cords or calf pain. Neurovascular unremarkable. Neuro: Awake, alert, oriented. Cranial nerves II through XII unremarkable. Cerebellum unremarkable. Motor and sensory unremarkable throughout. Exam nonfocal. Notes: Lab work is unremarkable. Chest x-ray shows no acute findings. CT of the head shows no acute findings. No significant changes with orthostatic vital signs, no symptoms with position changes. Patient does feel improved after the IV fluids and medications. Diagnostic findings were reviewed with the patient and significant other at bedside. Encourage them to follow-up with Dr. Bansal as they are ready have arranged. We discussed signs and symptoms that would prompt him to return to the emergency room. Both voice understanding and are agreeable to plan of care. Denies any further questions or concerns at this time. Diagnostics: CBC, CMP, EKG, one view chest, head CT, orthostatic vital signs Therapeutics: IV fluid, Toradol, Benadryl, Reglan, Zofran Prescription: None Impression: Migraine Plan: 1. Take the remainder of the day to breast and a dark and quiet room. 2. Make sure you're drinking plenty of fluids to prevent dehydration. 3. Tylenol and/or ibuprofen as needed for pain management. 4. Keep your appointment with Dr. Bansal as you already have arranged. Follow -up with your primary caregiver in the next 1-2 days. Return to the ED as needed and as discussed. Definitive disposition and diagnosis as appropriate pending reevaluation and review of above. Left Frontal Headache Pain Score (Numeric/FACES): 7 - Related Data Allergies Allergy/AdvReac Type Severity Reaction Status Date / Time beclomethasone Allergy Other Verified 05/22/18 21:43 [From Vanceril] Home Meds: Home Meds Allopurinol [Zyloprim] 300 mg PO DAILY 02/14/17 [History] Propranolol [Inderal] 10 mg PO BID #20 tablet 05/23/18 [Rx] Gabapentin [Neurontin] 300 mg PO TID 07/16/18 [History] Lisinopril 1 tab PO DAILY 07/16/18 [History] Past Medical History - Past Health History Medical/Surgical History: Denies Medical/Surgical History HEENT History: Reports: None Cardiovascular History: Reports: None Respiratory History: Reports: Asthma Gastrointestinal History: Reports: None Genitourinary History: Reports: None, Other (See Below) Other Genitourinary History: low testosterone Musculoskeletal History: Reports: Gout Neurological History: Reports: None Psychiatric History: Reports: None Endocrine/Metabolic History: Reports: Other (See Below) Other Endocrine/Metabolic History: low testosterone Hematologic History: Reports: None Immunologic History: Reports: None Oncologic (Cancer) History: Reports: None Dermatologic History: Reports: None - Infectious Disease History Infectious Disease History: Reports: None - Past Surgical History Head Surgeries/Procedures: Reports: None HEENT Surgical History: Reports: None Cardiovascular Surgical History: Reports: None Respiratory Surgical History: Reports: None GI Surgical History: Reports: None Male Surgical History: Reports: None Musculoskeletal Surgical History: Reports: None Dermatological Surgical History: Reports: None Social & Family History - Family History Family Medical History: Noncontributory - Caffeine Use Caffeine Use: Reports: Coffee, Energy Drinks, Soda, Tea ED ROS GENERAL - Review of Systems Review Of Systems: ROS reveals no pertinent complaints other than HPI. - Physical Exam Exam: See Below (See dictation) Course - Vital Signs Last Recorded V/S: Last Vital Signs Temp 98.9 F 07/16/18 16:29 Pulse 75 07/16/18 16:29 Resp 18 07/16/18 16:29 BP 147/87 H 07/16/18 16:29 Pulse Ox 99 07/16/18 16:29 Orthostatic Blood Pressure [ 140/84 Supine] Orthostatic Blood Pressure [ 145/99 Standing] Orthostatic Blood Pressure [ 143/87 Sitting] - Orders/Labs/Meds Orders: Active Orders 24 hr Category Date Time Status EKG Documentation Completion [RC] STAT Care 07/16/18 16:22 Active Orthostatic Vital Signs [RC] ASDIRECTED Care 07/16/18 16:22 Active Labs: Laboratory Tests 07/16/18 07/16/18 Range/Units 16:54 16:54 WBC 10.52 (4.0-11.0) K/uL RBC 5.67 (4.50-5.90) M/uL Hgb 17.8 H (13.0-17.0) g/dL Hct 50.6 H (38.0-50.0) % MCV 89.2 (80.0-98.0) fL MCH 31.4 (27.0-32.0) pg MCHC 35.2 (31.0-37.0) g/dL RDW Std Deviation 43.7 (28.0-62.0) fl RDW Coeff of James 14 (11.0-15.0) % Plt Count 206 (150-400) K/uL MPV 10.20 (7.40-12.00) fL Neut % (Auto) 66.4 (48.0-80.0) % Lymph % (Auto) 25.4 (16.0-40.0) % [place] % (Auto) 6.5 (0.0-15.0) % Eos % (Auto) 1.4 (0.0-7.0) % Baso % (Auto) 0.3 (0.0-1.5) % Neut # (Auto) 7.0 H (1.4-5.7) K/uL Lymph # (Auto) 2.7 H (0.6-2.4) K/uL [place] # (Auto) 0.7 (0.0-0.8) K/uL Eos # (Auto) 0.2 (0.0-0.7) K/uL Baso # (Auto) 0.0 (0.0-0.1) K/uL Nucleated RBC % 0.0 /100WBC Nucleated RBCs # 0 K/uL Sodium 136 (136-148) mmol/L Potassium 4.5 (3.5-5.1) mmol/L Chloride 102 (98-107) mmol/L Carbon Dioxide 24.1 (21.0-32.0) mmol/L BUN 12 (7.0-18.0) mg/dL Creatinine 0.8 (0.8-1.3) mg/dL Est Cr Clr Drug Dosing 141.19 mL/min Estimated GFR (MDRD) > 60.0 ml/min Glucose 85 (74-106) mg/dL Calcium 9.9 (8.5-10.1) mg/dL Total Bilirubin 0.8 (0.2-1.0) mg/dL AST 46 H (15-37) IU/L ALT 51 (14-63) IU/L Alkaline Phosphatase 53 (46-116) U/L Total Protein 8.8 H (6.4-8.2) g/dL Albumin 4.2 (3.4-5.0) g/dL Globulin 4.6 H (2.6-4.0) g/dL Albumin/Globulin Ratio 0.9 (0.9-1.6) Meds: Medications Discontinued Medications Generic Name Dose Route Start Last Admin Trade Name Freq PRN Reason Stop Dose Admin Diphenhydramine HCl 50 mg 07/16/18 16:42 07/16/18 17:34 Benadryl IVPUSH 07/16/18 16:43 50 mg ONETIME ONE Administration Sodium Chloride 1,000 mls @ 999 mls/hr 07/16/18 16:22 07/16/18 17:29 Normal Saline IV 07/16/18 17:22 999 mls/hr STAT ONE Administration Ketorolac Tromethamine 30 mg 07/16/18 16:42 07/16/18 17:36 Toradol IVPUSH 07/16/18 16:43 30 mg ONETIME ONE Administration Metoclopramide HCl 5 mg 07/16/18 16:42 07/16/18 17:37 Reglan IV 07/16/18 16:43 5 mg ONETIME ONE Administration Ondansetron HCl 4 mg 07/16/18 16:42 07/16/18 17:31 Zofran IVPUSH 07/16/18 16:43 4 mg ONETIME ONE Administration Departure - Departure Time of Disposition: 18:27 Disposition: Home, Self-Care 01 Clinical Impression: Migraine - Discharge Information Instructions: Migraine Headache, [id number] Referrals: PCP,Unknown [Primary Care Provider] - Additional Instructions: The following information is given to patients seen in the emergency department who are being discharged to home. This information is to outline your options for follow-up care. We provide all patients seen in our emergency department with a follow-up referral. The need for follow-up, as well as the timing and circumstances, are variable depending upon the specifics of your emergency department visit. If you don't have a primary care physician on staff, we will provide you with a referral. We always advise you to contact your personal physician following an emergency department visit to inform them of the circumstance of the visit and for follow-up with them and/or the need for any referrals to a consulting specialist. The emergency department will also refer you to a specialist when appropriate. This referral assures that you have the opportunity for follow-up care with a specialist. All of these measure are taken in an effort to provide you with optimal care, which includes your follow-up. Under all circumstances we always encourage you to contact your private physician who remains a resource for coordinating your care. When calling for follow-up care, please make the office aware that this follow-up is from your recent emergency room visit. If for any reason you are refused follow-up, please contact the [facility] Emergency Department at and asked to speak to the emergency department charge nurse. [facility] Primary [facility] [address] [place] [address] [address] [facility] Specialty Care - Neurology [facility] [address] [place] [address], [address] [place] [address] 1. Take the remainder of the day to rest and a dark and quiet room. 2. Make sure you're drinking plenty of fluids to prevent dehydration. 3. Tylenol and/or ibuprofen as needed for pain management. 4. Keep your appointment with Dr. Bansal as you already have arranged. Follow -up with your primary caregiver in the next 1-2 days. Return to the ED as needed and as discussed. - My Orders Last 24 Hours: My Active Orders 07/16/18 16:22 EKG Documentation Completion [RC] STAT Orthostatic Vital Signs [RC] ASDIRECTED - Assessment/Plan Last 24 Hours: My Active Orders 07/16/18 16:22 EKG Documentation Completion [RC] STAT Orthostatic Vital Signs [RC] ASDIRECTED
[2018-07-16] MEDS ORDERED: Ondansetron 4 MG/2 ML SDV IVPUSH ONE (16:42)
[2018-07-16] MEDS ORDERED: Ketorolac 30 MG/ML SDV IVPUSH ONE (16:42)
[2018-07-16] MEDS ORDERED: diphenhydrAMINE 50 MG/ML SDV IVPUSH ONE (16:42)
[2018-07-16] MEDS ORDERED: Metoclopramide 10 MG/2 ML SDV IV ONE (16:42)
[2018-07-16 17:46] LABS: CHLORIDE,CL 102 mmol/L (98-107); SODIUM,NA 136 mmol/L (136-148)
--- NOTE | 2018-07-16 17:53 | CR ---
INDICATION: Syncope TECHNIQUE: Chest 1 views COMPARISON: January 09, 2018 FINDINGS: Cardiovascular and mediastinum: Heart size and vasculature are normal in caliber and appearance. Lungs and pleural spaces: Lungs are clear. No sign of infiltrate or mass. No sign of pleural effusion. No pneumothorax. Bones and soft tissues: No significant findings. IMPRESSION: Unremarkable chest. Dictated by Basilio Milner MD @ Jul 16 2018 5:49PM Signed by Dr. Basilio Milner @ Jul 16 2018 5:51PM
--- NOTE | 2018-07-16 18:14 | CT ---
INDICATION: syncope CT HEAD WITHOUT CONTRAST TECHNIQUE: Multiple axial CT images were performed through the head without intravenous contrast administration. COMPARISON: No previous studies are currently available for comparison. FINDINGS: No acute intracranial hemorrhage is identified. No extra-axial collections are evident and there is no mass effect or midline shift. Ventricles are normal in size and configuration. Brain parenchyma appears normal with unremarkable bacon-white differentiation. Osseous structures are within normal limits and no fractures are seen. Included portions of the paranasal sinuses and mastoid air cells are normally aerated aside from mild bilateral maxillary sinus mucosal thickening suggesting sinusitis. IMPRESSION: No intracranial abnormality identified. SHIREEN SPENCER MD [employer] Dictated by: Aravind Spencer MD @ 07/16/2018 18:12:59 (Electronically Signed)
[2018-07-16 18:35] VITALS: BP 122/69
== END 2018-07-16 18:55 | disposition home or self-care (01) ==
LOC: MW.ED 16:19
DX: G43.909 Migraine, unspecified, not intractable, without status migrainosus (principal); J45.909 Unspecified asthma, uncomplicated; F17.290 Nicotine dependence, other tobacco product, uncomplicated; Z79.899 Other long term (current) drug therapy; Z88.8 Allergy status to other drugs, medicaments and biological substances
CPT/HCPCS: 70450; 71045; 80053; 85025; 93005; 96361; 96374; 96375; 99285; J1200; J1885; J2405; J2765; J7040; 99284

== ENCOUNTER 2018-10-10 12:07 | Emergency (ER) | payer BC ==
[2018-10-10] MEDS ORDERED: cefTRIAXone 1 GM Vial IM ONE (12:45)
--- NOTE | 2018-10-10 12:46 | EDM.PDOC ---
ED HPI GENERAL MEDICAL PROBLEM - General Chief Complaint: Fever Stated Complaint: FEVER Time Seen by Provider: 10/10/18 12:45 Source of Information: Reports: Patient - History of Present Illness INITIAL COMMENTS - FREE TEXT/NARRATIVE: HISTORY AND PHYSICAL: History of present illness: [Patient with sore throat myalgias for 1 week increasing in severity did have a strep culture which was negative no current fever nausea vomiting chills sweats no muffled voice drooling or trismus] Review of systems: As per history of present illness and below otherwise all systems reviewed and negative. Past medical history: As per history of present illness and as reviewed below otherwise noncontributory. Surgical history: As per history of present illness and as reviewed below otherwise noncontributory. Social history: No reported history of drug or alcohol abuse. Family history: As per history of present illness and as reviewed below otherwise noncontributory. Physical exam: HEENT: Atraumatic, normocephalic, pupils reactive, negative for conjunctival pallor or scleral icterus, mucous membranes moist, throat clear, neck supple, nontender, trachea midline. No erythema no exudates Lungs: Clear to auscultation, breath sounds equal bilaterally, chest nontender. Heart: S1S2, regular, negative for clicks, rubs, or JVD. Abdomen: Soft, nondistended, nontender. Negative for masses or hepatosplenomegaly. Negative for costovertebral tenderness. Pelvis: Stable nontender. Genitourinary: Deferred. Rectal: Deferred. Extremities: Atraumatic, negative for cords or calf pain. Neurovascular unremarkable. Neuro: Awake, alert, oriented. Cranial nerves II through XII unremarkable. Cerebellum unremarkable. Motor and sensory unremarkable throughout. Exam nonfocal. Diagnostics: [Lab file from yesterday] Therapeutics: 1 g Rocephin IM []Amoxicillin Impression: []2 pharyngitis Definitive disposition and diagnosis as appropriate pending reevaluation and review of above. Right Jaw Pain Score (Numeric/FACES): 8 - Related Data Allergies Allergy/AdvReac Type Severity Reaction Status Date / Time beclomethasone Allergy Other Verified 10/10/18 12:29 [From [facility]] Home Meds: Home Meds Allopurinol [Zyloprim] 300 mg PO DAILY 02/14/17 [History] Propranolol [Inderal] 10 mg PO BID #20 tablet 05/23/18 [Rx] Gabapentin [Neurontin] 300 mg PO TID 07/16/18 [History] Lisinopril 1 tab PO DAILY 07/16/18 [History] Past Medical History - Past Health History Medical/Surgical History: Denies Medical/Surgical History HEENT History: Reports: None Cardiovascular History: Reports: None Respiratory History: Reports: Asthma Gastrointestinal History: Reports: None Genitourinary History: Reports: None, Other (See Below) Other Genitourinary History: low testosterone Musculoskeletal History: Reports: Gout Neurological History: Reports: None Other Neuro History: tremors Psychiatric History: Reports: None Endocrine/Metabolic History: Reports: Other (See Below) Other Endocrine/Metabolic History: low testosterone Hematologic History: Reports: None Immunologic History: Reports: None Oncologic (Cancer) History: Reports: None Dermatologic History: Reports: None - Infectious Disease History Infectious Disease History: Reports: None - Past Surgical History Head Surgeries/Procedures: Reports: None HEENT Surgical History: Reports: None Cardiovascular Surgical History: Reports: None Respiratory Surgical History: Reports: None GI Surgical History: Reports: None Male Surgical History: Reports: None Musculoskeletal Surgical History: Reports: None Dermatological Surgical History: Reports: None Social & Family History - Family History Family Medical History: Noncontributory - Tobacco Use Smoking Status *Q: Never Smoker Years of Tobacco use: 17 Packs/Tins Daily: 1 - Caffeine Use Caffeine Use: Reports: None - Recreational Drug Use Recreational Drug Use: No ED ROS GENERAL - Review of Systems Review Of Systems: See Below ED EXAM, GENERAL - Physical Exam Exam: See Below Course - Vital Signs Last Recorded V/S: Last Vital Signs Temp 98.8 F 10/10/18 12:24 Pulse 136 H 10/10/18 12:24 Resp 20 10/10/18 12:24 BP 144/75 H 10/10/18 12:24 Pulse Ox 96 10/10/18 12:24 - Orders/Labs/Meds Meds: Medications Discontinued Medications Generic Name Dose Route Start Last Admin Trade Name Freq PRN Reason Stop Dose Admin Ceftriaxone Sodium 1 gm 10/10/18 12:45 Rocephin IM 10/10/18 12:46 ONETIME ONE Departure - Departure Time of Disposition: 12:50 Disposition: Home, Self-Care 01 Condition: Good Clinical Impression: Pharyngitis - Discharge Information Referrals: PCP,Unknown [Primary Care Provider] - Forms: ED Department Discharge Additional Instructions: The following information is given to patients seen in the emergency department who are being discharged to home. This information is to outline your options for follow-up care. We provide all patients seen in our emergency department with a follow-up referral. The need for follow-up, as well as the timing and circumstances, are variable depending upon the specifics of your emergency department visit. If you don't have a primary care physician on staff, we will provide you with a referral. We always advise you to contact your personal physician following an emergency department visit to inform them of the circumstance of the visit and for follow-up with them and/or the need for any referrals to a consulting specialist. The emergency department will also refer you to a specialist when appropriate. This referral assures that you have the opportunity for follow-up care with a specialist. All of these measure are taken in an effort to provide you with optimal care, which includes your follow-up. Under all circumstances we always encourage you to contact your private physician who remains a resource for coordinating your care. When calling for follow-up care, please make the office aware that this follow-up is from your recent emergency room visit. If for any reason you are refused follow-up, please contact the [facility] emergency department at and asked to speak to the emergency department charge nurse.
[2018-10-10 13:26] VITALS: BP 135/75
== END 2018-10-10 13:26 | disposition home or self-care (01) ==
LOC: MW.ED 12:07
DX: J02.9 Acute pharyngitis, unspecified (principal); Z79.899 Other long term (current) drug therapy; Z88.8 Allergy status to other drugs, medicaments and biological substances
CPT/HCPCS: 96372; 99283; J0696; J2001

== ENCOUNTER 2018-10-12 05:24 | Emergency (ER) | payer BC ==
[2018-10-12] MEDS ORDERED: Sodium Chloride 0.9% 1,000 ML IV ONE (05:31)
[2018-10-12] MEDS ORDERED: Ondansetron 4 MG/2 ML SDV IVPUSH ONE (05:31)
--- NOTE | 2018-10-12 05:34 | EDM.PDOC ---
ED HPI GENERAL MEDICAL PROBLEM - General Chief Complaint: Gastrointestinal Problem Stated Complaint: DIARRHEA Time Seen by Provider: 10/12/18 05:33 Source of Information: Reports: Patient - History of Present Illness INITIAL COMMENTS - FREE TEXT/NARRATIVE: HISTORY AND PHYSICAL: History of present illness: [Patient presents with vomiting and diarrhea, he was seen on the 2 days prior with sore throat for a week started on amoxicillin improvement of sore throat symptoms however is developed vomiting and diarrhea No current fever chills sweats no chest pain shortness breath headache dizziness palpitation no urine symptoms no drooling or muffled voice or trismus , no abdominal pain Review of systems: As per history of present illness and below otherwise all systems reviewed and negative. Past medical history: As per history of present illness and as reviewed below otherwise noncontributory. Surgical history: As per history of present illness and as reviewed below otherwise noncontributory. Social history: No reported history of drug or alcohol abuse. Family history: As per history of present illness and as reviewed below otherwise noncontributory. Physical exam: HEENT: Atraumatic, normocephalic, pupils reactive, negative for conjunctival pallor or scleral icterus, mucous membranes moist, throat clear, neck supple, nontender, trachea midline. Lungs: Clear to auscultation, breath sounds equal bilaterally, chest nontender. Heart: S1S2, regular, negative for clicks, rubs, or JVD. Abdomen: Soft, nondistended, nontender. Negative for masses or hepatosplenomegaly. Negative for costovertebral tenderness. Pelvis: Stable nontender. Genitourinary: Deferred. Rectal: Deferred. Extremities: Atraumatic, negative for cords or calf pain. Neurovascular unremarkable. Neuro: Awake, alert, oriented. Cranial nerves II through XII unremarkable. Cerebellum unremarkable. Motor and sensory unremarkable throughout. Exam nonfocal. Diagnostics: [CBC CMP UA stool culture blood cultures 2 (O aNd P C. difficile and guaiac chest 1 view Abdomen flat and upright Influenza Strep on file negative mono spot Therapeutics: [ normal saline Zofran ] Impression: [ subjective fever Vomiting diarrhea Gastroenteritis Acute pharyngitis improving ] Definitive disposition and diagnosis as appropriate pending reevaluation and review of above. Abdomen Pain Score (Numeric/FACES): 3 - Related Data Allergies Allergy/AdvReac Type Severity Reaction Status Date / Time beclomethasone Allergy Other Verified 10/12/18 05:32 [From Vanceril] Home Meds: Home Meds Allopurinol [Zyloprim] 300 mg PO DAILY 02/14/17 [History] Propranolol [Inderal] 10 mg PO BID #20 tablet 05/23/18 [Rx] Gabapentin [Neurontin] 300 mg PO TID 07/16/18 [History] Lisinopril 1 tab PO DAILY 07/16/18 [History] Amoxicillin 500 mg PO TID 10/12/18 [History] Past Medical History - Past Health History Medical/Surgical History: Denies Medical/Surgical History HEENT History: Reports: None Cardiovascular History: Reports: None Respiratory History: Reports: Asthma Gastrointestinal History: Reports: None Genitourinary History: Reports: None, Other (See Below) Other Genitourinary History: low testosterone Musculoskeletal History: Reports: Gout Neurological History: Reports: None Other Neuro History: tremors Psychiatric History: Reports: None Endocrine/Metabolic History: Reports: Other (See Below) Other Endocrine/Metabolic History: low testosterone Hematologic History: Reports: None Immunologic History: Reports: None Oncologic (Cancer) History: Reports: None Dermatologic History: Reports: None - Infectious Disease History Infectious Disease History: Reports: None - Past Surgical History Head Surgeries/Procedures: Reports: None HEENT Surgical History: Reports: None Cardiovascular Surgical History: Reports: None Respiratory Surgical History: Reports: None GI Surgical History: Reports: None Male Surgical History: Reports: None Musculoskeletal Surgical History: Reports: None Dermatological Surgical History: Reports: None Social & Family History - Family History Family Medical History: Noncontributory - Caffeine Use Caffeine Use: Reports: None ED ROS GENERAL - Review of Systems Review Of Systems: See Below ED EXAM, GENERAL - Physical Exam Exam: See Below Course - Vital Signs Last Recorded V/S: Last Vital Signs Temp 97.2 F 10/12/18 05:33 Pulse 82 10/12/18 06:44 Resp 18 10/12/18 06:44 BP 140/87 10/12/18 06:44 Pulse Ox 98 10/12/18 06:44 - Orders/Labs/Meds Orders: Active Orders 24 hr Category Date Time Status Abdomen 2V AP Flat Upright [CR] Stat Exams 10/12/18 06:35 Ordered Chest 1V Frontal [CR] Stat Exams 10/12/18 05:31 Ordered CDIFF TOX A+B [OP] Stat Lab 10/12/18 06:05 Received CULTURE BLOOD [BC] Stat Lab 10/12/18 05:45 Received CULTURE BLOOD [BC] Stat Lab 10/12/18 06:15 Received CULTURE STOOL + CAMPY+SHIGATOX [RM] Stat Lab 10/12/18 06:05 Received OCCULT BLOOD DIAGNOSTIC [OP] Stat Lab 10/12/18 06:05 Received OVA & PARASITES BY IMMUNOASSAY [MREF] Stat Lab 10/12/18 06:05 Received UA RFX NOLVIA AND CULT IF INDIC [URIN] Stat Lab 10/12/18 05:31 Ordered Blood Culture x2 Reflex Set [OM.PC] Stat Ot 10/12/18 05:31 Ordered Isolation [COMM] Stat [facility] 10/12/18 05:33 Ordered Labs: Laboratory Tests 10/12/18 10/12/18 10/12/18 Range/Units 05:45 05:45 05:45 WBC 4.82 (4.0-11.0) K/uL RBC 5.62 (4.50-5.90) M/uL Hgb 17.6 H (13.0-17.0) g/dL Hct 51.2 H (38.0-50.0) % MCV 91.1 (80.0-98.0) fL MCH 31.3 (27.0-32.0) pg MCHC 34.4 (31.0-37.0) g/dL RDW Std Deviation 44.8 (28.0-62.0) fl RDW Coeff of James 14 (11.0-15.0) % Plt Count 188 (150-400) K/uL MPV 10.20 (7.40-12.00) fL Add Manual Diff YES Neutrophils % (Manual) 21 L (48.0-80.0) % Band Neutrophils % 11 % Lymphocytes % (Manual) 43 H (16.0-40.0) % Monocytes % (Manual) 23 H (0.0-15.0) % Eosinophils % (Manual) 2 (0.0-7.0) % Nucleated RBC % 0.0 /100WBC Absolute Seg Neuts 1.0 L (1.4-5.7) Band Neutrophils # 0.5 Lymphocytes # (Manual) 2.1 (0.6-2.4) Monocytes # (Manual) 1.1 H (0.0-0.8) Eosinophils # (Manual) 0.1 (0.0-0.7) Nucleated RBCs 2 % Nucleated RBCs # 0 K/uL Sodium 135 L (136-148) mmol/L Potassium 3.4 L (3.5-5.1) mmol/L Chloride 101 (98-107) mmol/L Carbon Dioxide 23.5 (21.0-32.0) mmol/L BUN 12 (7.0-18.0) mg/dL Creatinine 1.1 (0.8-1.3) mg/dL Est Cr Clr Drug Dosing 101.73 mL/min Estimated GFR (MDRD) > 60.0 ml/min Glucose 118 H (74-106) mg/dL Calcium 8.2 L (8.5-10.1) mg/dL Total Bilirubin 0.9 (0.2-1.0) mg/dL AST 26 (15-37) IU/L ALT 48 (14-63) IU/L Alkaline Phosphatase 44 L (46-116) U/L Total Protein 8.1 (6.4-8.2) g/dL Albumin 3.7 (3.4-5.0) g/dL Globulin 4.4 H (2.6-4.0) g/dL Albumin/Globulin Ratio 0.8 L (0.9-1.6) Monoscreen NEGATIVE (NEG) Meds: Medications Discontinued Medications Generic Name Dose Route Start Last Admin Trade Name Freq PRN Reason Stop Dose Admin Sodium Chloride 1,000 mls @ 999 mls/hr 10/12/18 05:31 10/12/18 06:00 Normal Saline IV 10/12/18 06:31 999 mls/hr STAT ONE Administration Ondansetron HCl 8 mg 10/12/18 05:31 10/12/18 06:09 Zofran IVPUSH 10/12/18 05:32 8 mg ONETIME ONE Administration Departure - Departure Time of Disposition: 06:58 Disposition: Home, Self-Care 01 Condition: Good Clinical Impression: Gastroenteritis - Discharge Information Referrals: PCP,None [Primary Care Provider] - Forms: ED Department Discharge Additional Instructions: The following information is given to patients seen in the emergency department who are being discharged to home. This information is to outline your options for follow-up care. We provide all patients seen in our emergency department with a follow-up referral. The need for follow-up, as well as the timing and circumstances, are variable depending upon the specifics of your emergency department visit. If you don't have a primary care physician on staff, we will provide you with a referral. We always advise you to contact your personal physician following an emergency department visit to inform them of the circumstance of the visit and for follow-up with them and/or the need for any referrals to a consulting specialist. The emergency department will also refer you to a specialist when appropriate. This referral assures that you have the opportunity for follow-up care with a specialist. All of these measure are taken in an effort to provide you with optimal care, which includes your follow-up. Under all circumstances we always encourage you to contact your private physician who remains a resource for coordinating your care. When calling for follow-up care, please make the office aware that this follow-up is from your recent emergency room visit. If for any reason you are refused follow-up, please contact the [facility] emergency department at and asked to speak to the emergency department charge nurse. - My Orders Last 24 Hours: My Active Orders 10/12/18 05:31 Chest 1V Frontal [CR] Stat UA RFX NOLVIA AND CULT IF INDIC [URIN] Stat Blood Culture x2 Reflex Set [OM.PC] Stat 10/12/18 05:33 Isolation [COMM] Stat 10/12/18 05:45 CULTURE BLOOD [BC] Stat 10/12/18 06:05 CDIFF TOX A+B [OP] Stat CULTURE STOOL + CAMPY+SHIGATOX [RM] Stat OCCULT BLOOD DIAGNOSTIC [OP] Stat OVA & PARASITES BY IMMUNOASSAY [MREF] Stat 10/12/18 06:15 CULTURE BLOOD [BC] Stat 10/12/18 06:35 Abdomen 2V AP Flat Upright [CR] Stat - Assessment/Plan Last 24 Hours: My Active Orders 10/12/18 05:31 Chest 1V Frontal [CR] Stat UA RFX NOLVIA AND CULT IF INDIC [URIN] Stat Blood Culture x2 Reflex Set [OM.PC] Stat 10/12/18 05:33 Isolation [COMM] Stat 10/12/18 05:45 CULTURE BLOOD [BC] Stat 10/12/18 06:05 CDIFF TOX A+B [OP] Stat CULTURE STOOL + CAMPY+SHIGATOX [RM] Stat OCCULT BLOOD DIAGNOSTIC [OP] Stat OVA & PARASITES BY IMMUNOASSAY [MREF] Stat 10/12/18 06:15 CULTURE BLOOD [BC] Stat 10/12/18 06:35 Abdomen 2V AP Flat Upright [CR] Stat
[2018-10-12 06:29] LABS: CHLORIDE,CL 101 mmol/L (98-107); SODIUM,NA 135 mmol/L (136-148)
--- NOTE | 2018-10-12 07:35 | CR ---
INDICATION: Fever. TECHNIQUE: AP chest. COMPARISON: 07/16/2018. FINDINGS: Normal cardiac, mediastinal and hilar contours. Normal pulmonary vasculature. Lungs are clear. Specifically, no airspace opacities to suggest pneumonia. No pleural fluid or pneumothorax. IMPRESSION: No signs of acute thoracic disease. Dictated by Johann Lee MD @ 10/12/2018 7:33:07 AM Dictated by: Johann Lee MD @ 10/12/2018 07:33:34 (Electronically Signed)
--- NOTE | 2018-10-12 07:37 | CR ---
INDICATION: Abdominal pain. TECHNIQUE: Three views. COMPARISON: None. IMPRESSION: No signs of free intraperitoneal air. Nonobstructive bowel gas pattern. A few presumed pelvic phleboliths are noted. No acute osseous abnormality is seen. Dictated by Johann Lee MD @ 10/12/2018 7:35:59 AM Dictated by: Johann Lee MD @ 10/12/2018 07:36:05 (Electronically Signed)
[2018-10-12 08:07] VITALS: BP 158/92
== END 2018-10-12 07:50 | disposition home or self-care (01) ==
LOC: MW.ED 05:24
DX: K52.9 Noninfective gastroenteritis and colitis, unspecified (principal); J45.909 Unspecified asthma, uncomplicated; Z88.8 Allergy status to other drugs, medicaments and biological substances; Z79.899 Other long term (current) drug therapy
CPT/HCPCS: 36415; 71045; 74019; 80053; 82272; 85025; 86308; 87040; 87046; 87324; 87328; 87329; 87804; 87899; 96361; 96374; 99284; J2405; J7040

== ENCOUNTER 2018-12-15 08:50 | Day surgery (SDC) | payer BC ==
[~2018-12-15 08:50] MED LIST: Lactated Ringers 1,000 ML IV SCH
--- NOTE | 2018-12-15 09:30 | PCM.PREANE ---
Preanesthetic Assessment - Anesthesia/Transfusion/Family Hx Anesthesia History: No Prior Anesthesia Family History of Anesthesia Reaction: No Transfusion History: No Prior Transfusion(s) - Review of Systems General: No Symptoms Pulmonary: No Symptoms Cardiovascular: No Symptoms Gastrointestinal: No Symptoms Neurological: No Symptoms Other: Reports: None - Physical Assessment Height: 5 ft 11 in Weight: 129.274 kg ASA Class: 3 Mental Status: Alert & Oriented x3 Airway Class: Mallampati = 2 Dentition: Reports: Normal Dentition ROM/Head Extension: Full Lungs: Clear to Auscultation, Normal Respiratory Effort Cardiovascular: Regular Rate, Regular Rhythm - Allergies Allergies/Adverse Reactions: Allergies Allergy/AdvReac Type Severity Reaction Status Date / Time beclomethasone Allergy Other Verified 12/13/18 12:46 [From [facility]] - Blood Blood Available: No - Anesthesia Plan Pre-Op Medication Ordered: None - Acknowledgements Anesthesia Type Planned: General Anesthesia Pt an Appropriate Candidate for the Planned Anesthesia: Yes Alternatives and Risks of Anesthesia Discussed w Pt/Guardian: Yes Pt/Guardian Understands and Agrees with Anesthesia Plan: Yes Additional Comments: anes prob list: heme + stool, htn, annabelle, gout, migraine, smoker PLAN: tiva PreAnesthesia Questionnaire - Past Health History Medical/Surgical History: Denies Medical/Surgical History HEENT History: Reports: Other (See Below) Other HEENT History: wears glasses Cardiovascular History: Reports: High Cholesterol, Hypertension Respiratory History: Reports: Asthma, Sleep Apnea Other Respiratory History: Uses CPAP Gastrointestinal History: Reports: GERD, Hemorrhoids, Other (See Below) Other Gastrointestinal History: hx of Colitis and C-Diff Genitourinary History: Reports: Renal Calculus Other Genitourinary History: has passed stones Musculoskeletal History: Reports: Fracture Other Musculoskeletal History: hx of fx arm, ankle, ribs and vertebrate Neurological History: Reports: Concussion, Migraines, Other (See Below) Other Neuro History: hx of essential tremors that "disappeared after a few months" Psychiatric History: Reports: None Endocrine/Metabolic History: Reports: Obesity/BMI 30+ Other Endocrine/Metabolic History: low testosterone Hematologic History: Reports: None Immunologic History: Reports: None Oncologic (Cancer) History: Reports: None Dermatologic History: Reports: None - Infectious Disease History Infectious Disease History: Reports: None - Past Surgical History Head Surgeries/Procedures: Reports: None HEENT Surgical History: Reports: None Cardiovascular Surgical History: Reports: None Respiratory Surgical History: Reports: None GI Surgical History: Reports: None Male Surgical History: Reports: None Musculoskeletal Surgical History: Reports: None Dermatological Surgical History: Reports: None - SUBSTANCE USE Smoking Status *Q: Former Smoker Tobacco Use Within Last Twelve Months: Other (See Below) Days Per Week of Alcohol Use: 3 Number of Drinks Per Day: 2 Total Drinks Per Week: 6 Recreational Drug Use History: No - HOME MEDS Home Medications: Home Meds Allopurinol [Zyloprim] 300 mg PO DAILY 02/14/17 [History] Gabapentin [Neurontin] 300 mg PO TID 07/16/18 [History] Lisinopril 5 mg PO DAILY 07/16/18 [History] Ferrous Sulfate [Slow Release Iron] 142 mg PO BID 12/13/18 [History] Indomethacin 50 mg PO TID PRN 12/13/18 [History] Multivitamin [Daily Multiple Vitamin] 1 tab PO DAILY 12/13/18 [History] Propranolol [Inderal] 20 mg PO TID 12/13/18 [History] SUMAtriptan Succinate [Imitrex] 50 mg PO ASDIRECTED PRN MDD 100 mg 12/13/18 [ History] Testosterone Cypionate 0.75 ml IM WEEKLY 12/13/18 [History] - CURRENT (IN HOUSE) MEDS Current Meds: Current Medications Lactated Ringer's (Ringers, Lactated) 1,000 mls @ 125 mls/hr IV ASDIRECTED GRAHAM
[2018-12-15] MEDS ORDERED: fentaNYL 100 MCG/2 ML SDV ONE (10:31)
[2018-12-15] MEDS ORDERED: Propofol 200 MG/20 ML SDV ONE ×3 (10:31→11:05)
[2018-12-15] MEDS ORDERED: Midazolam 1 MG/ML 2 ML SDV ONE (10:32)
[2018-12-15] MEDS ORDERED: Lidocaine 2% 100 MG/5 ML Syringe ONE (10:40)
--- NOTE | 2018-12-15 11:36 | PCM.OPNOTE ---
- General Post-Op/Procedure Note Date of Surgery/Procedure: 12/15/18 Findings: see dict [id number]; started on omeprazole 40 mg po qd for erosive esophagitis Pre Op Diagnosis: abd pain, hx of colitis Post-Op Diagnosis: Same Anesthesia Technique: Moderate Sedation Primary Surgeon: Chaparro Lora Pathology: egd bx colon polyp bx at appendix base Complications: None Condition: Good
--- NOTE | 2018-12-15 11:52 | PCM.POSTAN ---
POST ANESTHESIA ASSESSMENT - MENTAL STATUS Mental Status: Alert, Oriented - RESPIRATORY Respiratory Status: Respiratory Rate WNL, Airway Patent, O2 Saturation Stable - CARDIOVASCULAR CV Status: Pulse Rate WNL, Blood Pressure Stable - GASTROINTESTINAL GI Status: No Symptoms - POST OP HYDRATION Hydration Status: Adequate & Stable
[2018-12-15 12:58] VITALS: BP 129/82
--- NOTE | 2018-12-15 13:03 | PCM48HPAN ---
Post Anesthesia Note - EVALUATION WITHIN 48HRS OF ANESTHETIC Vital Signs in Normal Range: Yes Patient Participated in Evaluation: Yes Respiratory Function Stable: Yes Airway Patent: Yes Cardiovascular Function Stable: Yes Hydration Status Stable: Yes Pain Control Satisfactory: Yes Nausea and Vomiting Control Satisfactory: Yes Mental Status Recovered: Yes Resp Rate: 16
--- NOTE | 2018-12-15 13:23 | OR ---
SURGEON: Chaparro Lora MD DATE OF PROCEDURE: 12/15/2018 PREOPERATIVE DIAGNOSES: Abdominal pain and history of colitis. POSTOPERATIVE DIAGNOSES: Esophagogastroduodenoscopy diagnosis is erosive esophagitis. Colonoscopy diagnosis is colon polyp. PROCEDURES PERFORMED: Esophagogastroduodenoscopy with biopsy and colonoscopy with biopsy. DESCRIPTION OF PROCEDURE: EGD: The patient was taken to the endoscopy room, and with the DRAGLINE OILER, Diprivan was administered. A well-lubricated EGD scope was gently inserted through the oropharynx, down the esophagus, passing through the gastroesophageal junction, into the stomach. The mucosa was examined upon the passage. Any etiology will be noted. Once in the stomach, we continued to advance to the distal antrum, passed through the pylorus into the second portion of the duodenum. Again, the mucosa was examined for any abnormality and etiology. The scope was then retrieved back to the stomach and then retroflexed to look at the fundus of the stomach. If a biopsy was indicated, we will biopsy the antrum, body, and gastroesophageal junction. The air will be sucked out while the scope is retrieved to reduce the patient's discomfort. The patient tolerated the procedure well. There were no intraoperative complications. Dr. Lora was present through the whole procedure. Prior to surgery, a time-out had been called, the patient identified, procedure identified and antibiotic administered. The patient was taken to the endoscopy room. A time out was called, patient identified, and procedure identified. Diprivan was then administrated. Patient went from awake to sleep, hearing doctor talking or door closing is normal. Perineum inspection and digital examination were then performed. A well- lubricated colonoscope was gently inserted through the rectum, advanced past the rectosigmoid junction, the descending colon, splenic flexure, transverse colon, hepatic flexure, ascending colon, arrived to the cecum. Cecum was identified as dictated in the finding. Then the scope was carefully withdrawn while attention was paid to the mucosal surface for any abnormality. Air will be sucked out during the scope withdrawal. At the rectum, retroflexed to examine any rectal diseases, fistula or hemorrhoids. During mucosal examination, biopsy performed. Patient tolerated procedure well. There were no intraoperative complications, and Dr. Lora was present throughout the whole procedure. FINDINGS: EGD findings: 1. The patient is easily sedated with DRAGLINE OILER and Diprivan, the patient is soundly snoring. 2. Oropharynx and proximal esophagus are free of disease. Distal esophagus at GE junction at 40 shows extensive acid reflux as well as erosive esophagitis. Stomach rugae are normal in appearance and antrum is mildly inflamed. Duodenum is grossly normal. Retroflexed look at the fundus of the stomach, and there is a mild to moderate hiatal hernia. Biopsy done at antrum, body, a GE junction at 40. Sucked out the gas while scope pulling out. During the whole study, there is no bile, blood, ulcer, or food particle in the stomach, but there are blood and ulcer in the esophagus. Colonoscopy findings: 1. The patient is easily sedated with DRAGLINE OILER and Diprivan, the patient is soundly snoring. 2. Bowel prep is average to good and very little liquid stool, no semi-formed stool. 3. Colon is rather straightforward. Cecum indicated by ileocecal fold, one-to- one indentation, and appendiceal orifice. Light emittance is not observed because of body habitus. Mucosa examined upon scope pulling out. The patient has a 4 mm sessile polyp right at the base of the appendix that was removed with biopsy forceps. Other than that, the patient has pretty significant diverticulosis. No signs or symptoms of diverticulitis. From the left colon towards the splenic flexure and involved the distal one- third of the transverse colon. There are some scattered diverticula at the middle of the transverse colon and also at the right colon. So the patient has evans diverticulosis and the major is in the left side and a little bit on the middle and very little on the right, but the patient has pancolonic diverticulosis. The patient also has internal hemorrhoid, mild. From the whole study, there is no other disease observed; bleeding ulcer, AV malformation, inflammation, none of those. The patient would benefit from repeat colonoscopy 10 years from today or if clinically indicated otherwise. KATHIE / DAVID /[id number] REGINA
== END 2018-12-15 12:45 | disposition home or self-care (01) ==
LOC: MW.SDS 08:50
PROVIDERS: ATTEND Surgery
DX: K63.5 Polyp of colon (principal); K21.0 Gastro-esophageal reflux disease with esophagitis; K57.31 Diverticulosis of large intestine without perforation or abscess with bleeding; I10 Essential (primary) hypertension; E78.00 Pure hypercholesterolemia, unspecified; G47.30 Sleep apnea, unspecified; J45.909 Unspecified asthma, uncomplicated; M10.9 Gout, unspecified; G43.909 Migraine, unspecified, not intractable, without status migrainosus; F17.210 Nicotine dependence, cigarettes, uncomplicated; E66.9 Obesity, unspecified; Z68.39 Body mass index [BMI] 39.0-39.9, adult; Z79.899 Other long term (current) drug therapy; Z88.8 Allergy status to other drugs, medicaments and biological substances; Z79.890 Hormone replacement therapy; Z80.0 Family history of malignant neoplasm of digestive organs; Z99.89 Dependence on other enabling machines and devices; Z87.19 Personal history of other diseases of the digestive system
CPT/HCPCS: 00813; 88305; 88312; J2001; J2250; J2704; J3010; J7120

== ENCOUNTER 2018-12-16 08:28 | Emergency (ER) | payer BC ==
[2018-12-16] MEDS ORDERED: Ondansetron 4 MG/2 ML SDV IVPUSH ONE (08:38)
[2018-12-16] MEDS ORDERED: Sodium Chloride 0.9% 1,000 ML IV ONE (08:38)
[2018-12-16] MEDS ORDERED: Ketorolac 30 MG/ML SDV IVPUSH ONE (08:38)
--- NOTE | 2018-12-16 09:37 | CT ---
CT of the abdomen and pelvis without contrast. HISTORY: Pain TECHNIQUE: Axial CT images were obtained of the abdomen and pelvis without contrast. Coronal and sagittal reconstructions obtained. FINDINGS: The lung bases are clear, no pleural effusion. Mild to moderate fatty infiltration of the liver. Spleen, adrenal glands, and pancreas appear unremarkable for noncontrast examination. The gallbladder appears normal. There is no bulky retroperitoneal lymphadenopathy. No abdominal ascites. There are no calcifications noted within the kidneys or along the courses of the ureters bilaterally. The large and small bowel are normal in caliber without evidence of obstruction. The appendix appears normal. There is no bulky pelvic lymphadenopathy. Mild diverticulosis without evidence of diverticulitis. No free fluid. No free air. The urinary bladder appears normal. Minimal fat-containing right inguinal hernia. The visualized osseous structures appear normal. IMPRESSION: 1. No acute findings noted within the abdomen or pelvis. 2. Mild to moderate fatty infiltration liver. 3. Mild diverticulosis.
[2018-12-16 09:56] LABS: CHLORIDE,CL 106 mmol/L (98-107); SODIUM,NA 139 mmol/L (136-148)
--- NOTE | 2018-12-16 10:35 | EDM.PDOC ---
ED HPI GENERAL MEDICAL PROBLEM - General Chief Complaint: Flank Pain Stated Complaint: LOW BACK PAIN Time Seen by Provider: 12/16/18 10:32 Source of Information: Reports: Patient - History of Present Illness INITIAL COMMENTS - FREE TEXT/NARRATIVE: HISTORY AND PHYSICAL: History of present illness: []Patient presents with left flank pain to low back pain no fever nausea vomiting chills sweats no trauma or injury he awoke with sleep he states that he did have a colonoscopy the day before yesterday other symptoms such as chest pain shortness breath headache dizziness palpitation no bowel or urine symptoms pain is 5 out of 10 nonradiating I can reproduce symptoms with palpation of the lumbar spine paraspinous muscles on the left Review of systems: As per history of present illness and below otherwise all systems reviewed and negative. Past medical history: As per history of present illness and as reviewed below otherwise noncontributory. Surgical history: As per history of present illness and as reviewed below otherwise noncontributory. Social history: No reported history of drug or alcohol abuse. Family history: As per history of present illness and as reviewed below otherwise noncontributory. Physical exam: HEENT: Atraumatic, normocephalic, pupils reactive, negative for conjunctival pallor or scleral icterus, mucous membranes moist, throat clear, neck supple, nontender, trachea midline. Lungs: Clear to auscultation, breath sounds equal bilaterally, chest nontender. Heart: S1S2, regular, negative for clicks, rubs, or JVD. Abdomen: Soft, nondistended, nontender. Negative for masses or hepatosplenomegaly. Negative for costovertebral tenderness. Pelvis: Stable nontender. Genitourinary: Deferred. Rectal: Deferred. Extremities: Atraumatic, negative for cords or calf pain. Neurovascular unremarkable. Neuro: Awake, alert, oriented. Cranial nerves II through XII unremarkable. Cerebellum unremarkable. Motor and sensory unremarkable throughout. Exam nonfocal. Diagnostics: [CBC CMP UA troponin lipase CT abdomen pelvis no contrast ] Therapeutics: [Flexeril Cataflam] Impression: [Paraspinous muscle spasm lumbar spine ] Definitive disposition and diagnosis as appropriate pending reevaluation and review of above. left flank Pain Score (Numeric/FACES): 8 - Related Data Allergies Allergy/AdvReac Type Severity Reaction Status Date / Time beclomethasone Allergy Other Verified 12/16/18 08:34 [From [facility]] Home Meds: Home Meds Allopurinol [Zyloprim] 300 mg PO DAILY 02/14/17 [History] Lisinopril 5 mg PO DAILY 07/16/18 [History] Ferrous Sulfate [Slow Release Iron] 142 mg PO BID 12/13/18 [History] Indomethacin 50 mg PO TID PRN 12/13/18 [History] Multivitamin [Daily Multiple Vitamin] 1 tab PO DAILY 12/13/18 [History] Propranolol [Inderal] 20 mg PO TID 12/13/18 [History] SUMAtriptan Succinate [Imitrex] 50 mg PO ASDIRECTED PRN MDD 100 mg 12/13/18 [ History] Testosterone Cypionate 0.75 ml IM WEEKLY 12/13/18 [History] Gabapentin [Neurontin] 300 mg PO TID 12/15/18 [History] Cholecalciferol (Vitamin D3) [Vitamin D] 1 tab PO DAILY 12/16/18 [History] Tumeric 1 tab PO DAILY 12/16/18 [History] Vitamin E 1 cap PO DAILY 12/16/18 [History] Past Medical History - Past Health History Medical/Surgical History: Denies Medical/Surgical History HEENT History: Reports: Other (See Below) Other HEENT History: wears glasses Cardiovascular History: Reports: High Cholesterol, Hypertension Respiratory History: Reports: Asthma, Sleep Apnea Other Respiratory History: Uses CPAP Gastrointestinal History: Reports: GERD, Hemorrhoids, Other (See Below) Other Gastrointestinal History: hx of Colitis and C-Diff Genitourinary History: Reports: Renal Calculus Other Genitourinary History: has passed stones Musculoskeletal History: Reports: Fracture Other Musculoskeletal History: hx of fx arm, ankle, ribs and vertebrate Neurological History: Reports: Concussion, Migraines, Other (See Below) Other Neuro History: hx of essential tremors that "disappeared after a few months" Psychiatric History: Reports: None Endocrine/Metabolic History: Reports: Obesity/BMI 30+ Other Endocrine/Metabolic History: low testosterone Hematologic History: Reports: Anemia Immunologic History: Reports: None Oncologic (Cancer) History: Reports: None Dermatologic History: Reports: None - Infectious Disease History Infectious Disease History: Reports: Chicken Pox - Past Surgical History Head Surgeries/Procedures: Reports: None HEENT Surgical History: Reports: None Cardiovascular Surgical History: Reports: None Respiratory Surgical History: Reports: None GI Surgical History: Reports: Colonoscopy, EGD Male Surgical History: Reports: None Musculoskeletal Surgical History: Reports: None Dermatological Surgical History: Reports: None Social & Family History - Family History Family Medical History: Noncontributory - Tobacco Use Smoking Status *Q: Never Smoker - Caffeine Use Caffeine Use: Reports: None - Recreational Drug Use Recreational Drug Use: No ED ROS GENERAL - Review of Systems Review Of Systems: See Below ED EXAM, GENERAL - Physical Exam Exam: See Below Course - Vital Signs Last Recorded V/S: Last Vital Signs Temp 97.0 F 12/16/18 08:32 Pulse 75 12/16/18 09:26 Resp 16 12/16/18 08:32 BP 145/71 H 12/16/18 09:26 Pulse Ox 98 12/16/18 09:26 - Orders/Labs/Meds Labs: Laboratory Tests 12/16/18 12/16/18 12/16/18 Range/Units 08:40 09:00 09:00 WBC 8.11 (4.0-11.0) K/uL RBC 5.36 (4.50-5.90) M/uL Hgb 16.8 (13.0-17.0) g/dL Hct 49.4 (38.0-50.0) % MCV 92.2 (80.0-98.0) fL MCH 31.3 (27.0-32.0) pg MCHC 34.0 (31.0-37.0) g/dL RDW Std Deviation 45.3 (28.0-62.0) fl RDW Coeff of James 14 (11.0-15.0) % Plt Count 223 (150-400) K/uL MPV 10.50 (7.40-12.00) fL Neut % (Auto) 59.4 (48.0-80.0) % Lymph % (Auto) 30.9 (16.0-40.0) % [place] % (Auto) 8.0 (0.0-15.0) % Eos % (Auto) 1.6 (0.0-7.0) % Baso % (Auto) 0.1 (0.0-1.5) % Neut # (Auto) 4.8 (1.4-5.7) K/uL Lymph # (Auto) 2.5 H (0.6-2.4) K/uL [place] # (Auto) 0.7 (0.0-0.8) K/uL Eos # (Auto) 0.1 (0.0-0.7) K/uL Baso # (Auto) 0.0 (0.0-0.1) K/uL Nucleated RBC % 0.0 /100WBC Nucleated RBCs # 0 K/uL Sodium 139 (136-148) mmol/L Potassium 3.8 (3.5-5.1) mmol/L Chloride 106 (98-107) mmol/L Carbon Dioxide 24.8 (21.0-32.0) mmol/L BUN 10 (7.0-18.0) mg/dL Creatinine 1.0 (0.8-1.3) mg/dL Est Cr Clr Drug Dosing 111.90 mL/min Estimated GFR (MDRD) > 60.0 ml/min Glucose 118 H (74-106) mg/dL Calcium 8.6 (8.5-10.1) mg/dL Total Bilirubin 0.5 (0.2-1.0) mg/dL AST 36 (15-37) IU/L ALT 69 H (14-63) IU/L Alkaline Phosphatase 68 (46-116) U/L Troponin I < 0.050 (0.000-0.056) ng/mL Total Protein 7.7 (6.4-8.2) g/dL Albumin 3.8 (3.4-5.0) g/dL Globulin 3.9 (2.6-4.0) g/dL Albumin/Globulin Ratio 1.0 (0.9-1.6) Lipase 188 (73-393) U/L Urine Color YELLOW Urine Appearance CLEAR Urine pH 6.0 (5.0-8.0) Ur Specific [place] 1.025 (1.001-1.035) Urine Protein TRACE H (NEGATIVE) mg/dL Urine Glucose (UA) NEGATIVE (NEGATIVE) mg/dL Urine Ketones NEGATIVE (NEGATIVE) mg/dL Urine Occult Blood NEGATIVE (NEGATIVE) Urine Nitrite NEGATIVE (NEGATIVE) Urine Bilirubin NEGATIVE (NEGATIVE) Urine Urobilinogen 0.2 (<2.0) EU/dL Ur Leukocyte Esterase NEGATIVE (NEGATIVE) Urine RBC 0-2 (0-2/HPF) Urine WBC 0-3 (0-5/HPF) Ur Epithelial Cells OCCASIONAL (NONE-FEW) Urine Bacteria FEW (NEGATIVE) Meds: Medications Discontinued Medications Generic Name Dose Route Start Last Admin Trade Name Areli PRN Reason Stop Dose Admin Sodium Chloride 1,000 mls @ 999 mls/hr 12/16/18 08:38 12/16/18 08:54 Normal Saline IV 12/16/18 09:38 999 mls/hr STAT ONE Administration Ketorolac Tromethamine 30 mg 12/16/18 08:38 12/16/18 08:58 Toradol IVPUSH 12/16/18 08:39 30 mg ONETIME ONE Administration Ondansetron HCl 8 mg 12/16/18 08:38 12/16/18 08:55 Zofran IVPUSH 12/16/18 08:39 8 mg ONETIME ONE Administration Departure - Departure Time of Disposition: 10:34 Disposition: Home, Self-Care 01 Condition: Good Clinical Impression: Spasm of lumbar paraspinous muscle - Discharge Information Referrals: PCP,None [Primary Care Provider] - Additional Instructions: Medication as prescribed Return if symptoms persist or worsen Follow-up with primary care in 2 weeks [facility] - Primary Care [address] [place] [address] The following information is given to patients seen in the emergency department who are being discharged to home. This information is to outline your options for follow-up care. We provide all patients seen in our emergency department with a follow-up referral. The need for follow-up, as well as the timing and circumstances, are variable depending upon the specifics of your emergency department visit. If you don't have a primary care physician on staff, we will provide you with a referral. We always advise you to contact your personal physician following an emergency department visit to inform them of the circumstance of the visit and for follow-up with them and/or the need for any referrals to a consulting specialist. The emergency department will also refer you to a specialist when appropriate. This referral assures that you have the opportunity for follow-up care with a specialist. All of these measure are taken in an effort to provide you with optimal care, which includes your follow-up. Under all circumstances we always encourage you to contact your private physician who remains a resource for coordinating your care. When calling for follow-up care, please make the office aware that this follow-up is from your recent emergency room visit. If for any reason you are refused follow-up, please contact the [facility] emergency department at and asked to speak to the emergency department charge nurse.
[2018-12-16 11:22] VITALS: BP 139/69
== END 2018-12-16 11:03 | disposition home or self-care (01) ==
LOC: MW.ED 08:28
DX: M62.830 Muscle spasm of back (principal); E78.00 Pure hypercholesterolemia, unspecified; I10 Essential (primary) hypertension; K21.9 Gastro-esophageal reflux disease without esophagitis; E66.9 Obesity, unspecified; Z88.8 Allergy status to other drugs, medicaments and biological substances; Z79.899 Other long term (current) drug therapy; Z87.442 Personal history of urinary calculi; Z68.37 Body mass index [BMI] 37.0-37.9, adult
CPT/HCPCS: 36415; 74176; 80053; 81001; 83690; 84484; 85025; 96361; 96374; 96375; 99284; J1885; J2405; J7040

== ENCOUNTER 2018-12-31 15:57 | Emergency (ER) | payer BC ==
[2018-12-31] MEDS ORDERED: Lidocaine 2% Viscous Solution 15 ML Cup PO ONE (15:59)
[2018-12-31] MEDS ORDERED: Benzocaine 20% Topical Spray UD MUCMEM ONE (15:59)
--- NOTE | 2018-12-31 16:05 | EDM.PDOC ---
ED HPI GENERAL MEDICAL PROBLEM - General Chief Complaint: ENT Problem Stated Complaint: toothache Time Seen by Provider: 12/31/18 15:58 Source of Information: Reports: Patient History Limitations: Reports: No Limitations - History of Present Illness INITIAL COMMENTS - FREE TEXT/NARRATIVE: History of present illness: []Patient had a difficult tooth extraction 11:30 this morning and was told to take 3 ibuprofen and Tylenol for pain. Has no active bleeding, facial swelling and has not had any fevers. Review of systems: As per history of present illness and below otherwise all systems reviewed and negative. Past medical history: As per history of present illness and as reviewed below otherwise noncontributory. Surgical history: As per history of present illness and as reviewed below otherwise noncontributory. Social history: No reported history of drug or alcohol abuse. Family history: As per history of present illness and as reviewed below otherwise noncontributory. Physical exam: General: Well developed, well nourished in NAD HEENT: Atraumatic, normocephalic, pupils reactive, negative for conjunctival pallor or scleral icterus, mucous membranes moist, throat clear, neck supple, nontender, trachea midline. Lungs: Clear to auscultation, breath sounds equal bilaterally, chest nontender. Heart: S1S2, regular, negative for clicks, rubs, or JVD. Abdomen: NABS, Soft, nondistended, nontender. Negative for masses or hepatosplenomegaly. Negative for costovertebral tenderness. Pelvis: Stable nontender. Genitourinary: Deferred. Rectal: Deferred. Extremities: Atraumatic, negative for cords or calf pain. Neurovascular unremarkable. Neuro: Awake, alert, oriented. Cranial nerves II through XII unremarkable. Cerebellum unremarkable. Motor and sensory unremarkable throughout. Exam nonfocal. Skin:warm and dry Diagnostics: None Therapeutics: Dental balls ED Course: Stable Impression: Dental pain Prescriptions: Dental balls, tramadol Plan: Take meds as directed, follow up with your primary care physician, return to ER if symptoms worsen or change. Definitive disposition and diagnosis as appropriate pending reevaluation and review of above. left upper tooth Pain Score (Numeric/FACES): 10 - Related Data Allergies Allergy/AdvReac Type Severity Reaction Status Date / Time beclomethasone Allergy Other Verified 12/16/18 08:34 [From Vanceril] Home Meds: Home Meds Allopurinol [Zyloprim] 300 mg PO DAILY 02/14/17 [History] Lisinopril 5 mg PO DAILY 07/16/18 [History] Ferrous Sulfate [Slow Release Iron] 142 mg PO BID 12/13/18 [History] Indomethacin 50 mg PO TID PRN 12/13/18 [History] Multivitamin [Daily Multiple Vitamin] 1 tab PO DAILY 12/13/18 [History] Propranolol [Inderal] 20 mg PO TID 12/13/18 [History] SUMAtriptan Succinate [Imitrex] 50 mg PO ASDIRECTED PRN MDD 100 mg 12/13/18 [ History] Testosterone Cypionate 0.75 ml IM WEEKLY 12/13/18 [History] Gabapentin [Neurontin] 300 mg PO TID 12/15/18 [History] Cholecalciferol (Vitamin D3) [Vitamin D] 1 tab PO DAILY 12/16/18 [History] Tumeric 1 tab PO DAILY 12/16/18 [History] Vitamin E 1 cap PO DAILY 12/16/18 [History] traMADol HCl [Tramadol HCl] 50 mg PO Q6H PRN #16 tablet 12/31/18 [Rx] Past Medical History - Past Health History Medical/Surgical History: Denies Medical/Surgical History HEENT History: Reports: Other (See Below) Other HEENT History: wears glasses Cardiovascular History: Reports: High Cholesterol, Hypertension Respiratory History: Reports: Asthma, Sleep Apnea Other Respiratory History: Uses CPAP Gastrointestinal History: Reports: GERD, Hemorrhoids, Other (See Below) Other Gastrointestinal History: hx of Colitis and C-Diff Genitourinary History: Reports: Renal Calculus Other Genitourinary History: has passed stones Musculoskeletal History: Reports: Fracture Other Musculoskeletal History: hx of fx arm, ankle, ribs and vertebrate Neurological History: Reports: Concussion, Migraines, Other (See Below) Other Neuro History: hx of essential tremors that "disappeared after a few months" Psychiatric History: Reports: None Endocrine/Metabolic History: Reports: Obesity/BMI 30+ Other Endocrine/Metabolic History: low testosterone Hematologic History: Reports: None Immunologic History: Reports: None Oncologic (Cancer) History: Reports: None Dermatologic History: Reports: None - Infectious Disease History Infectious Disease History: Reports: None - Past Surgical History GI Surgical History: Reports: None Social & Family History - Family History Family Medical History: Noncontributory - Caffeine Use Caffeine Use: Reports: None ED ROS GENERAL - Review of Systems Review Of Systems: See Below ED EXAM GENERAL W FULL EYE - Physical Exam Exam: See Below Course - Vital Signs Last Recorded V/S: Last Vital Signs Temp 98 F 12/31/18 16:05 Pulse 112 H 12/31/18 16:05 Resp 22 H 12/31/18 16:05 BP 188/115 H 12/31/18 16:05 Pulse Ox 97 12/31/18 16:05 - Orders/Labs/Meds Meds: Medications Discontinued Medications Generic Name Dose Route Start Last Admin Trade Name Freq PRN Reason Stop Dose Admin Benzocaine 2 each 12/31/18 15:59 Hurricaine One 20% MUCMEM 12/31/18 16:00 ONETIME ONE Lidocaine HCl 15 ml 12/31/18 15:59 Xylocaine 2% Viscous PO 12/31/18 16:00 ONETIME ONE Departure - Departure Time of Disposition: 16:09 Disposition: Home, Self-Care 01 Condition: Good Clinical Impression: Pain, dental - Discharge Information *PRESCRIPTION DRUG MONITORING PROGRAM REVIEWED*: No *COPY OF PRESCRIPTION DRUG MONITORING REPORT IN PATIENT ANETA: No Prescriptions: traMADol HCl [Tramadol HCl] 50 mg PO Q6H PRN #16 tablet PRN Reason: Pain Referrals: PCP,None [Primary Care Provider] - Forms: ED Department Discharge Additional Instructions: The following information is given to patients seen in the emergency department who are being discharged to home. This information is to outline your options for follow-up care. We provide all patients seen in our emergency department with a follow-up referral. The need for follow-up, as well as the timing and circumstances, are variable depending upon the specifics of your emergency department visit. If you don't have a primary care physician on staff, we will provide you with a referral. We always advise you to contact your personal physician following an emergency department visit to inform them of the circumstance of the visit and for follow-up with them and/or the need for any referrals to a consulting specialist. The emergency department will also refer you to a specialist when appropriate. This referral assures that you have the opportunity for follow-up care with a specialist. All of these measure are taken in an effort to provide you with optimal care, which includes your follow-up. Under all circumstances we always encourage you to contact your private physician who remains a resource for coordinating your care. When calling for follow-up care, please make the office aware that this follow-up is from your recent emergency room visit. If for any reason you are refused follow-up, please contact the [facility] Emergency Department at and asked to speak to the emergency department charge nurse. Take meds as directed, follow up with your primary care physician, return to ER if symptoms worsen or change. [facility] [address] [place] [id number]
[2018-12-31 16:11] VITALS: BP 188/115
== END 2018-12-31 16:23 | disposition home or self-care (01) ==
LOC: MW.ED 15:57
DX: G89.18 Other acute postprocedural pain (principal); K08.89 Other specified disorders of teeth and supporting structures; I10 Essential (primary) hypertension; E66.9 Obesity, unspecified; Z79.899 Other long term (current) drug therapy; Z88.8 Allergy status to other drugs, medicaments and biological substances
CPT/HCPCS: 99282; A9270

== ENCOUNTER 2019-02-18 04:08 | Emergency (ER) | payer BC ==
[2019-02-18 04:34] VITALS: BP 139/97
--- NOTE | 2019-02-18 04:44 | EDM.PDOC ---
ED HPI GENERAL MEDICAL PROBLEM - General Chief Complaint: Back Pain or Injury Stated Complaint: BACK SPASMS Time Seen by Provider: 02/18/19 04:37 - History of Present Illness INITIAL COMMENTS - FREE TEXT/NARRATIVE: HISTORY AND PHYSICAL: History of present illness: Patient 33-year-old white male presents with concern of back pain and spasms patient has history of chronic back pain and is scheduled for an epidural next Thursday. There's been no incontinence or retention bowel or bladder complaints no new trauma. Patient is on a muscle relaxant and narcotic analgesic. Review of systems: As per history of present illness and below otherwise all systems reviewed and negative. Past medical history: As per history of present illness and as reviewed below otherwise noncontributory. Surgical history: As per history of present illness and as reviewed below otherwise noncontributory. Social history: No reported history of drug or alcohol abuse. Family history: As per history of present illness and as reviewed below otherwise noncontributory. Physical exam: HEENT: Atraumatic, normocephalic, pupils reactive, negative for conjunctival pallor or scleral icterus, mucous membranes moist, throat clear, neck supple, nontender, trachea midline. Lungs: Clear to auscultation, breath sounds equal bilaterally, chest nontender. Heart: S1S2, regular, negative for clicks, rubs, or JVD. Abdomen: Soft, nondistended, nontender. Negative for masses or hepatosplenomegaly. Negative for costovertebral tenderness. Pelvis: Stable nontender. Genitourinary: Deferred. Rectal: Deferred. Extremities: Atraumatic, negative for cords or calf pain. Neurovascular unremarkable. Neuro: Awake, alert, oriented. Cranial nerves II through XII unremarkable. Cerebellum unremarkable. Motor and sensory unremarkable throughout. Exam nonfocal. Diagnostics: None Therapeutics: None Impression: #1 chronic back pain Definitive disposition and diagnosis as appropriate pending reevaluation and review of above. lower back Pain Score (Numeric/FACES): 7 - Related Data Allergies Allergy/AdvReac Type Severity Reaction Status Date / Time beclomethasone Allergy Other Verified 12/16/18 08:34 [From Vanceril] Home Meds: Home Meds Allopurinol [Zyloprim] 300 mg PO DAILY 02/14/17 [History] Lisinopril 5 mg PO DAILY 07/16/18 [History] Ferrous Sulfate [Slow Release Iron] 142 mg PO BID 12/13/18 [History] Indomethacin 50 mg PO TID PRN 12/13/18 [History] Multivitamin [Daily Multiple Vitamin] 1 tab PO DAILY 12/13/18 [History] Propranolol [Inderal] 20 mg PO TID 12/13/18 [History] SUMAtriptan Succinate [Imitrex] 50 mg PO ASDIRECTED PRN MDD 100 mg 12/13/18 [ History] Testosterone Cypionate 0.75 ml IM WEEKLY 12/13/18 [History] Gabapentin [Neurontin] 300 mg PO TID 12/15/18 [History] Cholecalciferol (Vitamin D3) [Vitamin D] 1 tab PO DAILY 12/16/18 [History] Tumeric 1 tab PO DAILY 12/16/18 [History] Vitamin E 1 cap PO DAILY 12/16/18 [History] traMADol HCl [Tramadol HCl] 50 mg PO Q6H PRN #16 tablet 12/31/18 [Rx] Past Medical History - Past Health History Medical/Surgical History: Denies Medical/Surgical History HEENT History: Reports: Other (See Below) Other HEENT History: wears glasses Cardiovascular History: Reports: High Cholesterol, Hypertension Respiratory History: Reports: Asthma, Sleep Apnea Other Respiratory History: Uses CPAP Gastrointestinal History: Reports: GERD, Hemorrhoids, Other (See Below) Other Gastrointestinal History: hx of Colitis and C-Diff Genitourinary History: Reports: Renal Calculus Other Genitourinary History: has passed stones Musculoskeletal History: Reports: Back Pain, Chronic, Fracture Other Musculoskeletal History: hx of fx arm, ankle, ribs and vertebrate Neurological History: Reports: Concussion, Migraines, Other (See Below) Other Neuro History: hx of essential tremors that "disappeared after a few months" Psychiatric History: Reports: None Endocrine/Metabolic History: Reports: Obesity/BMI 30+ Other Endocrine/Metabolic History: low testosterone Hematologic History: Reports: None Immunologic History: Reports: None Oncologic (Cancer) History: Reports: None Dermatologic History: Reports: None - Infectious Disease History Infectious Disease History: Reports: Chicken Pox - Past Surgical History Head Surgeries/Procedures: Reports: None GI Surgical History: Reports: Colonoscopy, Other (See Below) Other GI Surgeries/Procedures: endoscopy Social & Family History - Family History Family Medical History: Noncontributory - Caffeine Use Caffeine Use: Reports: Coffee, Soda - Recreational Drug Use Recreational Drug Use: No ED ROS GENERAL - Review of Systems Review Of Systems: ROS reveals no pertinent complaints other than HPI. ED EXAM, GENERAL - Physical Exam Exam: See Below (See dictation) Course - Vital Signs Last Recorded V/S: Last Vital Signs Temp 36.2 C 02/18/19 04:09 Pulse 104 H 02/18/19 04:09 Resp 20 02/18/19 04:09 BP 139/97 H 02/18/19 04:09 Pulse Ox 97 02/18/19 04:09 Departure - Departure Time of Disposition: 04:44 Disposition: Home, Self-Care 01 Condition: Good Clinical Impression: Back pain - Discharge Information Referrals: Justino Johnson MD [Primary Care Provider] - Additional Instructions: The following information is given to patients seen in the emergency department who are being discharged to home. This information is to outline your options for follow-up care. We provide all patients seen in our emergency department with a follow-up referral. The need for follow-up, as well as the timing and circumstances, are variable depending upon the specifics of your emergency department visit. If you don't have a primary care physician on staff, we will provide you with a referral. We always advise you to contact your personal physician following an emergency department visit to inform them of the circumstance of the visit and for follow-up with them and/or the need for any referrals to a consulting specialist. The emergency department will also refer you to a specialist when appropriate. This referral assures that you have the opportunity for followup care with a specialist. All of these measure are taken in an effort to provide you with optimal care, which includes your followup. Under all circumstances we always encourage you to contact your private physician who remains a resource for coordinating your care. When calling for followup care, please make the office aware that this follow-up is from your recent emergency room visit. If for any reason you are refused follow-up, please contact the [facility] emergency department at and asked to speak to the emergency department charge nurse. Medrol as prescribed continue current medication as directed follow-up primary medical doctor and return as needed as discussed
== END 2019-02-18 04:55 | disposition home or self-care (01) ==
LOC: MW.ED 04:08
DX: M54.5 Low back pain (principal); Z79.899 Other long term (current) drug therapy; Z88.8 Allergy status to other drugs, medicaments and biological substances
CPT/HCPCS: 99283

== ENCOUNTER 2019-02-22 11:19 | Day surgery (SDC) | payer BC ==
[~2019-02-22 11:19] MED LIST changes: +Betamethasone Acetate/Betamethasone Sod Phosphate 30 MG/5 ML MDV EPIDUR ONE; +Iopamidol 200-M 10 ML vial ITHECAL ONE; -Lactated Ringers 1,000 ML IV SCH; +Lidocaine 2% 5 ML SDV INJECT ONE; +Ropivacaine 0.5% 5 MG/ML 30 ML SDV INJECT ONE
--- NOTE | 2019-02-22 16:50 | OR ---
SURGEON: Susan Dacosta D.O. DATE OF PROCEDURE: 02/22/2019 PRIMARY SURGEON: Susan Dacosta D.O. ASSISTANTS: 1. Heaven Coulter RT. 2. Henri Gibson RN. 3. Kaley Mac RN. 4. Rell Figueroa RN. WOUND CLASS: I. PREOPERATIVE DIAGNOSES: 1. Lumbar degenerative disk disease. 2. Lumbar spondylosis. 3. Lumbar spinal stenosis. 4. Lumbar radiculopathy. POSTOPERATIVE DIAGNOSES: 1. Lumbar degenerative disk disease. 2. Lumbar spondylosis. 3. Lumbar spinal stenosis. 4. Lumbar radiculopathy. PROCEDURE PERFORMED: 1. Caudal epidural steroid injection. 2. Fluoroscopic guidance for needle placement. 3. Local with oral Valium for sedation. SCREENING QUESTIONS: The patient answered "no" to all of the following questions: 1. Are you allergic to latex? 2. Do you have a bleeding disorder? 3. Do you have any current local or systemic infections? 4. Are you taking any anti-inflammatories or blood thinners? 5. Do you have any joint replacements, heart valve replacements, or a pacemaker? DESCRIPTION OF PROCEDURE: The patient had the procedure thoroughly explained including all possible risks, benefits and alternatives. Consent was signed in my clinic indicating understanding and willingness to proceed. The patient presented to [facility] and was escorted to the dressing room to disrobe and change into a hospital gown. Preoperative vital signs were taken and stable. The patient reported that Valium was taken prior to the procedure. The patient was brought back to the procedure room and placed in the prone position on the procedure room table. A pillow was placed under the hips in order to flatten the lumbar lordosis. The back was prepped with ChloraPrep and sterilely draped. All personnel in the operating room were dressed in appropriate attire including surgical scrubs, head and shoe covers. This was to ensure sterility while in the treatment room. During the time fluoroscopy was in use, all personnel in the operating room wore lead roy with thyroid collars. Sterile technique was used throughout the procedure. The patient was awake and conversant throughout the procedure. There was no evidence of infection at the site of needle insertion. Skeletal landmarks were identified under fluoroscopy for the caudal epidural. Skin was anesthetized with 2% lidocaine with a sterile 27-gauge 1.5 inch needle. Then a 20-gauge Tuohy epidural needle was placed in the epidural space with loss of resistance technique under fluoroscopic guidance. No heme, cerebrospinal fluid, or paresthesias were noted. Isovue-200 contrast dye was injected in 0.2 cubic centimeter increments and seen to outline the epidural space in both AP and lateral views. There was no intravascular flow pattern observed under live fluoroscopy. Then 12 milligrams of Celestone was slowly injected after negative aspiration. The patient tolerated the procedure well. Vital signs were stable during and after the procedure. The staff escorted the patient to the recovery area and the patient was released in stable condition after a brief stay in the recovery room monitored by the nurse. The patient was given both oral and written discharge and follow up instructions with recommendation to follow up given for 2-3 weeks. The patient voiced understanding including understanding of those signs and symptoms that would require emergency care. The patient knows how to contact the office if there are any additional problems or questions in the meantime. PREOPERATIVE PAIN: 5/10. POSTOPERATIVE PAIN: 0/10. FOLLOWUP: Follow up in the Pain Clinic in 3 weeks. JOE / DAVID /[id number] REGINA
== END 2019-02-22 13:47 ==
LOC: MW.SDS 11:19
PROVIDERS: ATTEND Anesthesiology
DX: M51.16 Intervertebral disc disorders with radiculopathy, lumbar region (principal); M47.26 Other spondylosis with radiculopathy, lumbar region; M48.061 Spinal stenosis, lumbar region without neurogenic claudication; M46.96 Unspecified inflammatory spondylopathy, lumbar region; M53.86 Other specified dorsopathies, lumbar region; I10 Essential (primary) hypertension; J45.909 Unspecified asthma, uncomplicated; M10.9 Gout, unspecified; E78.00 Pure hypercholesterolemia, unspecified; G43.909 Migraine, unspecified, not intractable, without status migrainosus; K21.9 Gastro-esophageal reflux disease without esophagitis; F17.210 Nicotine dependence, cigarettes, uncomplicated; Z88.8 Allergy status to other drugs, medicaments and biological substances; Z79.899 Other long term (current) drug therapy; Z79.1 Long term (current) use of non-steroidal anti-inflammatories (NSAID); Z79.890 Hormone replacement therapy
CPT/HCPCS: 62323; J0702; J2001; J2795; Q9966

== ENCOUNTER 2019-03-31 11:02 | Day surgery (SDC) | payer BC ==
[~2019-03-31 11:02] MED LIST changes: -Lidocaine 2% 5 ML SDV INJECT ONE
--- NOTE | 2019-03-31 21:53 | OR ---
SURGEON: Susan Dacosta D.O. DATE OF PROCEDURE: 03/31/2019 PREOPERATIVE DIAGNOSES: 1. Lumbar degenerative disk disease, L4-L5, L5-S1. 2. Lumbar facet arthropathy. 3. Lumbosacral myofascial pain syndrome. 4. Chronic low back pain with left lower extremity radiculopathy. POSTOPERATIVE DIAGNOSES: 1. Lumbar degenerative disk disease, L4-L5, L5-S1. 2. Lumbar facet arthropathy. 3. Lumbosacral myofascial pain syndrome. 4. Chronic low back pain with left lower extremity radiculopathy. PROCEDURES PERFORMED: 1. Lumbar interlaminar epidural steroid injection at L4-L5. 2. Fluoroscopic guidance for needle placement. 3. Local with oral Valium for sedation. SCREENING QUESTIONS: The patient answered "no" to all of the following questions: 1. Are you allergic to latex? 2. Do you have a bleeding disorder? 3. Do you have any current local or systemic infections? 4. Are you taking any anti-inflammatories or blood thinners? 5. Do you have any joint replacements, heart valve replacements, or a pacemaker? DESCRIPTION OF PROCEDURE: The patient had the procedure thoroughly explained including all possible risks, benefits and alternatives. Consent was signed in my clinic indicating understanding and willingness to proceed. The patient presented to [facility] and was escorted to the dressing room to disrobe and change into a hospital gown. Preoperative vital signs were taken and stable. The patient reported that Valium was taken prior to the procedure. The patient was brought back to the procedure room and placed in the prone position on the procedure room table. A pillow was placed under the hips in order to flatten the lumbar lordosis. The back was prepped with ChloraPrep and sterilely draped. All personnel in the operating room were dressed in appropriate attire including surgical scrubs, head and shoe covers. This was to ensure sterility while in the treatment room. During the time fluoroscopy was in use, all personnel in the operating room wore lead roy with thyroid collars. Sterile technique was used throughout the procedure. The patient was awake and conversant throughout the procedure. There was no evidence of infection at the site of needle insertion. Skeletal landmarks were identified under fluoroscopy for the lumbar epidural. Skin was anesthetized with 2% lidocaine with a sterile 27-gauge 1.5 inch needle. Then a 20-gauge Tuohy epidural needle was placed in the epidural space with loss of resistance technique under fluoroscopic guidance. No heme, cerebrospinal fluid, or paresthesias were noted. Isovue-200 contrast dye was injected in 0.2 cubic centimeter increments and seen to outline the epidural space in both AP and lateral views. There was no intravascular flow pattern observed under live fluoroscopy. Then 12 milligrams of Celestone was slowly injected after negative aspiration. The patient tolerated the procedure well. Vital signs were stable during and after the procedure. The staff escorted the patient to the recovery area and the patient was released in stable condition after a brief stay in the recovery room monitored by the nurse. The patient was given both oral and written discharge and follow up instructions with recommendation to follow up given for 2-3 weeks. The patient voiced understanding including understanding of those signs and symptoms that would require emergency care. The patient knows how to contact the office if there are any additional problems or questions in the meantime. PREOPERATIVE PAIN: 5+/10. POSTOPERATIVE PAIN: 1/10. FOLLOWUP: Follow up in Pain Clinic in 2 weeks. JOE / DAVID /[id number]
== END 2019-03-31 13:06 | disposition home or self-care (01) ==
LOC: MW.SDS 11:02
PROVIDERS: ATTEND Anesthesiology
DX: G89.29 Other chronic pain (principal); M51.16 Intervertebral disc disorders with radiculopathy, lumbar region; M51.17 Intervertebral disc disorders with radiculopathy, lumbosacral region; M12.88 Other specific arthropathies, not elsewhere classified, other specified site
CPT/HCPCS: 62323; J0702

== ENCOUNTER 2019-04-01 12:56 | Emergency (ER) | payer BC ==
[2019-04-01] MEDS ORDERED: Sodium Chloride 0.9% 1,000 ML IV ONE (13:13)
--- NOTE | 2019-04-01 13:33 | EDM.PDOC ---
ED HPI GENERAL MEDICAL PROBLEM - General Chief Complaint: General Stated Complaint: WEAKNESS Time Seen by Provider: 04/01/19 13:06 Source of Information: Reports: Patient History Limitations: Reports: No Limitations - History of Present Illness INITIAL COMMENTS - FREE TEXT/NARRATIVE: HISTORY AND PHYSICAL: History of present illness: Patient is a 33-year-old male who presents to the ED today with concern of muscle fatigue x 1 day. Patient was seen earlier today by Dr. Mcallister as he had a lumbar spinal steroid injection yesterday and thought his symptoms were related to the injection. Dr. Mcallister did call the emergency room and does not feel the injection as the cause of his symptoms and needs to be further evaluated. Patient states starting last night his biceps and his trapezius muscles on both sides feel as if he did a "really hard workout ". Patient states he has not done any heart work as he mostly just sits at home and is not very active. Patient states he is fully able to use his arms but his muscles ( biceps and trapezius muscles) feel "sore". Patient denies any trauma or injury or any other symptoms or concerns at this time. Patient denies fever, chills, chest pain, shortness of breath, or cough. Denies headache, neck stiff ness, change in vision, syncope, or near syncope. Denies nausea, vomiting, abdominal pain, diarrhea, constipation, or dysuria. Has not noted any blood in urine or stool. Patient has been eating and drinking appropriately. Review of systems: As per history of present illness and below otherwise all systems reviewed and negative. Past medical history: As per history of present illness and as reviewed below otherwise noncontributory. Surgical history: As per history of present illness and as reviewed below otherwise noncontributory. Social history: See social history for further information Family history: As per history of present illness and as reviewed below otherwise noncontributory. Physical exam: General: Patient is alert, oriented, and in no acute distress. Patient sitting comfortably on exam table. HEENT: Atraumatic, normocephalic, pupils equal and reactive bilaterally, negative for conjunctival pallor or scleral icterus, mucous membranes moist, TMs normal bilaterally, throat clear, neck supple, nontender, trachea midline. No drooling or trismus noted. No meningeal signs. No hot potato voice noted. Lungs: Clear to auscultation, breath sounds equal bilaterally, chest nontender. Heart: S1S2, regular rate and rhythm without overt murmur Abdomen: Soft, nondistended, nontender. Negative for masses or hepatosplenomegaly. Negative for costovertebral tenderness. Pelvis: Stable nontender. Genitourinary: Deferred. Rectal: Deferred. Skin: Intact, warm, dry. No lesions or rashes noted. Extremities: Atraumatic, negative for cords or calf pain. Neurovascular unremarkable. Full ROM of bilateral upper extremities without pain, deficit, or difficulty. Radial pulses grossly intact bilaterally with capillary refill less than 2 seconds. No obvious deformity of the complete bilateral upper extremities. Neuro: Awake, alert, oriented. Cranial nerves II through XII unremarkable. Cerebellum unremarkable. Motor and sensory unremarkable throughout. Exam nonfocal. Notes: Dr. Lozada verbally involved in patient care. Discussed the importance for follow-up with a primary care provider. Voices understanding and is agreeable to plan of care. Denies any further questions or concerns at this time. Diagnostics: CBC, CMP, UA, CPK Therapeutics: Saline Prescription: None Impression: Myalgia Leukocytosis Plan: 1. You can alternate ibuprofen and Tylenol as directed for pain and discomfort. 2. Follow-up with her primary care provider as discussed. Return to the ED as needed and as discussed. Definitive disposition and diagnosis as appropriate pending reevaluation and review of above. arms Pain Score (Numeric/FACES): 3 - Related Data Allergies Allergy/AdvReac Type Severity Reaction Status Date / Time beclomethasone Allergy Other Verified 04/01/19 13:01 [From [facility]] tizanidine Allergy Cannot Verified 04/01/19 13:01 Remember Home Meds: Home Meds Allopurinol [Zyloprim] 300 mg PO DAILY 02/14/17 [History] Lisinopril 5 mg PO DAILY 07/16/18 [History] Ferrous Sulfate [Slow Release Iron] 142 mg PO BID 12/13/18 [History] Indomethacin 50 mg PO TID PRN 12/13/18 [History] Multivitamin [Daily Multiple Vitamin] 1 tab PO DAILY 12/13/18 [History] Propranolol [Inderal] 20 mg PO TID 12/13/18 [History] SUMAtriptan Succinate [Imitrex] 50 mg PO ASDIRECTED PRN MDD 100 mg 12/13/18 [ History] Testosterone Cypionate 0.75 ml IM WEEKLY 12/13/18 [History] Gabapentin [Neurontin] 300 mg PO TID 12/15/18 [History] Past Medical History - Past Health History Medical/Surgical History: Denies Medical/Surgical History HEENT History: Reports: Other (See Below) Other HEENT History: wears glasses Cardiovascular History: Reports: High Cholesterol, Hypertension Respiratory History: Reports: Asthma, Sleep Apnea Other Respiratory History: Uses CPAP Gastrointestinal History: Reports: GERD, Hemorrhoids, Other (See Below) Other Gastrointestinal History: hx of Colitis and C-Diff Genitourinary History: Reports: Renal Calculus Other Genitourinary History: has passed stones Musculoskeletal History: Reports: Back Pain, Chronic, Fracture Other Musculoskeletal History: hx of fx arm, ankle, ribs and vertebrate Neurological History: Reports: Concussion, Migraines, Other (See Below) Other Neuro History: hx of essential tremors that "disappeared after a few months" Psychiatric History: Reports: None Endocrine/Metabolic History: Reports: Obesity/BMI 30+ Other Endocrine/Metabolic History: low testosterone Hematologic History: Reports: None Immunologic History: Reports: None Oncologic (Cancer) History: Reports: None Dermatologic History: Reports: None - Infectious Disease History Infectious Disease History: Reports: Chicken Pox - Past Surgical History Head Surgeries/Procedures: Reports: None GI Surgical History: Reports: Colonoscopy, Other (See Below) Other GI Surgeries/Procedures: endoscopy Social & Family History - Family History Family Medical History: Noncontributory - Caffeine Use Caffeine Use: Reports: Coffee - Recreational Drug Use Recreational Drug Use: No ED ROS GENERAL - Review of Systems Review Of Systems: ROS reveals no pertinent complaints other than HPI. ED EXAM, GENERAL - Physical Exam Exam: See Below (See dictation) Course - Vital Signs Last Recorded V/S: Last Vital Signs Temp 97.9 F 04/01/19 13:04 Pulse 79 04/01/19 13:04 Resp 18 04/01/19 13:04 BP 125/93 H 04/01/19 13:04 Pulse Ox 96 04/01/19 13:04 - Orders/Labs/Meds Labs: Laboratory Tests 04/01/19 04/01/19 04/01/19 Range/Units 13:25 13:40 13:40 WBC 15.21 H (4.0-11.0) K/uL RBC 5.62 (4.50-5.90) M/uL Hgb 17.7 H (13.0-17.0) g/dL Hct 51.0 H (38.0-50.0) % MCV 90.7 (80.0-98.0) fL MCH 31.5 (27.0-32.0) pg MCHC 34.7 (31.0-37.0) g/dL RDW Std Deviation 44.2 (28.0-62.0) fl RDW Coeff of James 14 (11.0-15.0) % Plt Count 234 (150-400) K/uL MPV 10.30 (7.40-12.00) fL Neut % (Auto) 83.1 H (48.0-80.0) % Lymph % (Auto) 11.9 L (16.0-40.0) % Jewell % (Auto) 5.0 (0.0-15.0) % Eos % (Auto) 0.0 (0.0-7.0) % Baso % (Auto) 0.0 (0.0-1.5) % Neut # (Auto) 12.6 H (1.4-5.7) K/uL Lymph # (Auto) 1.8 (0.6-2.4) K/uL Jewell # (Auto) 0.8 (0.0-0.8) K/uL Eos # (Auto) 0.0 (0.0-0.7) K/uL Baso # (Auto) 0.0 (0.0-0.1) K/uL Nucleated RBC % 0.0 /100WBC Nucleated RBCs # 0 K/uL Sodium 137 (136-148) mmol/L Potassium 4.4 (3.5-5.1) mmol/L Chloride 103 (98-107) mmol/L Carbon Dioxide 20.3 L (21.0-32.0) mmol/L BUN 9 (7.0-18.0) mg/dL Creatinine 0.8 (0.8-1.3) mg/dL Est Cr Clr Drug Dosing 139.88 mL/min Estimated GFR (MDRD) > 60.0 ml/min Glucose 124 H (74-106) mg/dL Calcium 9.3 (8.5-10.1) mg/dL Total Bilirubin 0.7 (0.2-1.0) mg/dL AST 18 (15-37) IU/L ALT 47 (14-63) IU/L Alkaline Phosphatase 64 (46-116) U/L Creatine Kinase 228 (26-308) U/L Total Protein 8.3 H (6.4-8.2) g/dL Albumin 4.1 (3.4-5.0) g/dL Globulin 4.2 H (2.6-4.0) g/dL Albumin/Globulin Ratio 1.0 (0.9-1.6) Urine Color YELLOW Urine Appearance HAZY Urine pH 6.0 (5.0-8.0) Ur Specific [place] 1.025 (1.001-1.035) Urine Protein 100 H (NEGATIVE) mg/dL Urine Glucose (UA) NEGATIVE (NEGATIVE) mg/dL Urine Ketones NEGATIVE (NEGATIVE) mg/dL Urine Occult Blood SMALL H (NEGATIVE) Urine Nitrite NEGATIVE (NEGATIVE) Urine Bilirubin SMALL H (NEGATIVE) Urine Ictotest NEGATIVE Urine Urobilinogen 1.0 (<2.0) EU/dL Ur Leukocyte Esterase NEGATIVE (NEGATIVE) Urine RBC 1-3 (0-2/HPF) Urine WBC 0-2 (0-5/HPF) Ur Epithelial Cells OCCASIONAL (NONE-FEW) Urine Bacteria FEW (NEGATIVE) Urine Mucus LIGHT (NONE-MOD) Meds: Medications Discontinued Medications Generic Name Dose Route Start Last Admin Trade Name Freq PRN Reason Stop Dose Admin Sodium Chloride 1,000 mls @ 999 mls/hr 04/01/19 13:13 04/01/19 13:41 Normal Saline IV 04/01/19 14:13 999 mls/hr BOLUS ONE Administration Departure - Departure Time of Disposition: 14:44 Disposition: Home, Self-Care 01 Clinical Impression: Myalgia Leukocytosis Qualifiers: Leukocytosis type: unspecified Qualified Code(s): D72.829 - Elevated white blood cell count, unspecified - Discharge Information Referrals: Justino Johnson MD [Primary Care Provider] - Forms: ED Department Discharge Additional Instructions: The following information is given to patients seen in the emergency department who are being discharged to home. This information is to outline your options for follow-up care. We provide all patients seen in our emergency department with a follow-up referral. The need for follow-up, as well as the timing and circumstances, are variable depending upon the specifics of your emergency department visit. If you don't have a primary care physician on staff, we will provide you with a referral. We always advise you to contact your personal physician following an emergency department visit to inform them of the circumstance of the visit and for follow-up with them and/or the need for any referrals to a consulting specialist. The emergency department will also refer you to a specialist when appropriate. This referral assures that you have the opportunity for follow-up care with a specialist. All of these measure are taken in an effort to provide you with optimal care, which includes your follow-up. Under all circumstances we always encourage you to contact your private physician who remains a resource for coordinating your care. When calling for follow-up care, please make the office aware that this follow-up is from your recent emergency room visit. If for any reason you are refused follow-up, please contact the [facility] at and asked to speak to the emergency department charge nurse. [facility] [address] [place], [place] [id number] [place] [address] 1. You can alternate ibuprofen and Tylenol as directed for pain and discomfort. 2. Follow-up with her primary care provider as discussed. Return to the ED as needed and as discussed.
[2019-04-01 14:25] LABS: BLOOD UREA NITROGEN,BUN 9 mg/dL (7.0-18.0); CARBON DIOXIDE,CO2 20.3 mmol/L (21.0-32.0); CHLORIDE,CL 103 mmol/L (98-107); GLUCOSE RANDOM 124 mg/dL (74-106); POTASSIUM,K 4.4 mmol/L (3.5-5.1); SODIUM,NA 137 mmol/L (136-148)
[2019-04-01 15:05] VITALS: BP 127/82; PULSE 89
== END 2019-04-01 15:02 | disposition home or self-care (01) ==
LOC: MW.ED 12:56
DX: M79.10 Myalgia, unspecified site (principal); D72.829 Elevated white blood cell count, unspecified; I10 Essential (primary) hypertension; E66.9 Obesity, unspecified; Z68.41 Body mass index [BMI] 40.0-44.9, adult; Z88.8 Allergy status to other drugs, medicaments and biological substances; Z79.899 Other long term (current) drug therapy
CPT/HCPCS: 36415; 80053; 81001; 82550; 85025; 96360; 99283; J7040

== ENCOUNTER 2019-05-03 10:49 | Day surgery (SDC) | payer BC ==
[~2019-05-03 10:49] MED LIST changes: -Betamethasone Acetate/Betamethasone Sod Phosphate 30 MG/5 ML MDV EPIDUR ONE; +Lidocaine 2% 5 ML SDV INJECT ONE
--- NOTE | 2019-05-03 22:05 | OR ---
SURGEON: Susan Dacosta D.O. DATE OF PROCEDURE: 05/03/2019 PRIMARY SURGEON: Susan Dacosta D.O. EXPLOSIVE ORDNANCE DISPOSAL SPECIALIST: OR staff present: Layla Mac. 2RT. Shi WOUND CLASS: I. PREOPERATIVE DIAGNOSES: 1. Lumbar facet arthropathy. 2. Lumbar degenerative disk disease. 3. Chronic low back pain. POSTOPERATIVE DIAGNOSES: 1. Lumbar facet arthropathy. 2. Lumbar degenerative disk disease. 3. Chronic low back pain. PROCEDURE PERFORMED: 1. Left L3 medial branch block. 2. Left L4 medial branch block. 3. Left L5 medial branch block. 4. Fluoroscopic guidance for needle placement. 5. Local with oral Valium for sedation. SCREENING QUESTIONS: The patient answered "No" to all the following questions: 1. Are you allergic to iodine, Betadine or latex? 2. Do you have a bleeding disorder? 3. Are you on anti-inflammatories or blood thinners? 4. Do you have any current local or systemic infections? MEDICAL NECESSITY: This is a patient with chronic low back pain who comes in for the above diagnostic procedure. This procedure is being performed in accordance with national guidelines written by the [employer]; please see medical necessity note in chart. DESCRIPTION OF PROCEDURE: The patient had the procedure thoroughly explained including risks, benefits and alternatives. Consent was signed in my clinic indicating understanding and willingness to proceed. The patient presented to [facility] and was escorted to the dressing room to disrobe and change into a hospital gown. Preoperative history and screening were performed by my nurse. Vital signs were taken and stable. The patient reported that Valium 10 milligrams was taken prior to the procedure. The patient was brought back to the procedure room and placed in the prone position on the procedure room table. A pillow was placed under the abdomen in order to flatten the lumbar lordosis. The back was prepped with ChloraPrep and sterilely draped. All personnel in the procedure room were dressed in appropriate attire including surgical scrubs, head and shoe covers. This was to ensure sterility while in the treatment room. During the time fluoroscopy was in use all personnel in the operating room wore lead roy with thyroid collars. Sterile technique was used during the procedure. Then attention was turned to the left side. The fluoroscope was positioned to provide a left oblique view for the left L3 medial branch block. This was begun by anesthetizing the skin and soft tissues. Then a 22-gauge 3.5 inch needle was positioned at the junction of the transverse process and the superior articular process at the left L4 vertebral body. Precise needle placement was confirmed by fluoroscopy with 0.2 cubic centimeters of IsoVue-200 contrast dye injected through microbore tubing under live fluoroscopy showing no intravascular flow pattern and adequate flow over the target medial branch of L3 on the left. After negative aspiration, 0.5 cubic centimeters of 0.5% Ropivacaine was injected without complications. The fluoroscope was positioned then to provide a left L4 medial branch block. The skin was anesthetized. Then a 22-gauge 3.5 inch spinal needle was positioned at the junction of the transverse process in the superior articular process of the L5 vertebral body on the left. Precise needle placement was confirmed by fluoroscopy and with 0.2 cubic centimeters of IsoVue-200 contrast dye injected through microbore tubing showing no intravascular flow pattern and adequate flow over the target medial branch of L4 on the left. Then 0.5 cubic centimeters of 0.5% Ropivacaine was injected after negative aspiration without complications. Then the fluoroscope was positioned for the left L5 dorsal ramus block. This was begun by anesthetizing the skin and soft tissues. Then with fluoroscopic guidance a sterile 22-gauge 3.5 inch spinal needle was positioned at the left sacral ala. Precise needle placement was confirmed with 0.2 cubic centimeters of IsoVue-200 contrast dye injected through microbore tubing under live fluoroscopy showing no intravascular flow pattern and adequate flow over the target L5 nerve. The procedure was well tolerated and vital signs were stable during and after the procedure. The staff escorted the patient to the recovery area. The patient was given both oral and written discharge and followup instructions. The patient will follow up with a pain diary which will be evaluated over this evening doing things that would normally cause pain. We will evaluate the efficacy of the diagnostic lumbar medial branch blocks as the patient will follow up in the clinic the next day. The patient was given both oral and written discharge and followup instructions. The patient voiced understanding including understanding of those signs and symptoms that would require emergency care and knows how to contact the office if there are any questions or concerns in the meantime. PREOPERATIVE PAIN: 01/29. POSTOPERATIVE PAIN: 2/10. FOLLOWUP: In the Pain Clinic in 1 week with pain diary. JOE / DAVID /[id number] MTDD
== END 2019-05-03 13:45 | disposition home or self-care (01) ==
LOC: MW.SDS 10:49
PROVIDERS: ATTEND Anesthesiology
DX: G89.29 Other chronic pain (principal); M51.16 Intervertebral disc disorders with radiculopathy, lumbar region; M47.26 Other spondylosis with radiculopathy, lumbar region; M79.18 Myalgia, other site; I10 Essential (primary) hypertension; E78.00 Pure hypercholesterolemia, unspecified; E66.9 Obesity, unspecified; J45.909 Unspecified asthma, uncomplicated; F17.210 Nicotine dependence, cigarettes, uncomplicated; G47.33 Obstructive sleep apnea (adult) (pediatric); Z88.8 Allergy status to other drugs, medicaments and biological substances; Z68.41 Body mass index [BMI] 40.0-44.9, adult; Z79.899 Other long term (current) drug therapy; M47.817 Spondylosis without myelopathy or radiculopathy, lumbosacral region
CPT/HCPCS: 64450; 64493; 64494

== ENCOUNTER 2019-05-10 10:51 | Day surgery (SDC) | payer BC ==
[2019-05-10] MEDS ORDERED: Lidocaine 2% 5 ML SDV INJECT ONE (11:00)
[2019-05-10] MEDS ORDERED: Iopamidol 200-M 10 ML vial ITHECAL ONE (11:00)
--- NOTE | 2019-05-10 17:32 | OR ---
SURGEON: Susan Dacosta D.O. DATE OF PROCEDURE: 05/03/2019 PRIMARY SURGEON: Susan Dacosta D.O. ASSISTANTS: OR staff present: 1. Liliane Wilson RN. 2. Preston Clinton RN. 3. RT Rohith. WOUND CLASS: I. PREOPERATIVE DIAGNOSES: 1. Lumbar facet arthropathy, lumbar degenerative disk disease, L3-L4, L4-L5, L5-S1. 2. Lumbar chronic low back pain. POSTOPERATIVE DIAGNOSES: 1. Lumbar facet arthropathy, lumbar degenerative disk disease, L3-L4, L4-L5, L5-S1. 2. Lumbar chronic low back pain. PROCEDURES PERFORMED: 1. Left L3 medial branch block. 2. Left L4 medial branch block. 3. Left L5 medial branch block. 4. Fluoroscopic guidance for needle placement. 5. Local with oral Valium for sedation. SCREENING QUESTIONS: The patient answered "No" to all the following questions: 1. Are you allergic to iodine, Betadine or latex? 2. Do you have a bleeding disorder? 3. Are you on anti-inflammatories or blood thinners? 4. Do you have any current local or systemic infections? DESCRIPTION OF PROCEDURE: The patient had the procedure thoroughly explained including risks, benefits and alternatives. Consent was signed in my clinic indicating understanding and willingness to proceed. The patient presented to [facility] and was escorted to the dressing room to disrobe and change into a hospital gown. Preoperative history and screening were performed by my nurse. Vital signs were taken and stable. The patient reported that Valium 10 milligrams was taken prior to the procedure. The patient was brought back to the procedure room and placed in the prone position on the procedure room table. A pillow was placed under the abdomen in order to flatten the lumbar lordosis. The back was prepped with ChloraPrep and sterilely draped. All personnel in the procedure room were dressed in appropriate attire including surgical scrubs, head and shoe covers. This was to ensure sterility while in the treatment room. During the time fluoroscopy was in use all personnel in the operating room wore lead roy with thyroid collars. Sterile technique was used during the procedure. The fluoroscope was positioned to provide a left oblique view for the left L3 medial branch block. This was begun by anesthetizing the skin and soft tissues. Then a 22-gauge 3.5 inch needle was positioned at the junction of the transverse process and the superior articular process at the left L4 vertebral body. Precise needle placement was confirmed by fluoroscopy with 0.2 cubic centimeters of IsoVue-200 contrast dye injected through microbore tubing under live fluoroscopy showing no intravascular flow pattern and adequate flow over the target medial branch of L3 on the left. After negative aspiration, 0.5 cubic centimeters of 0.5% Ropivacaine was injected without complications. The fluoroscope was positioned then to provide a left L4 medial branch block. The skin was anesthetized. Then a 22-gauge 3.5 inch spinal needle was positioned at the junction of the transverse process in the superior articular process of the L5 vertebral body on the left. Precise needle placement was confirmed by fluoroscopy and with 0.2 cubic centimeters of IsoVue-200 contrast dye injected through microbore tubing showing no intravascular flow pattern and adequate flow over the target medial branch of L4 on the left. Then 0.5 cubic centimeters of 0.5% Ropivacaine was injected after negative aspiration without complications. Then the fluoroscope was positioned for the left L5 dorsal ramus block. This was begun by anesthetizing the skin and soft tissues. Then with fluoroscopic guidance a sterile 22-gauge 3.5 inch spinal needle was positioned at the left sacral ala. Precise needle placement was confirmed with 0.2 cubic centimeters of IsoVue-200 contrast dye injected through microbore tubing under live fluoroscopy showing no intravascular flow pattern and adequate flow over the target L5 nerve. Then 0.5 mL of 0.5% ropivacaine was injected after negative aspiration. The procedure was well tolerated and vital signs were stable during and after the procedure. The staff escorted the patient to the recovery area. The patient was given both oral and written discharge and followup instructions. The patient will follow up with a pain diary which will be evaluated over this evening doing things that would normally cause pain. We will evaluate the efficacy of the diagnostic lumbar medial branch blocks as the patient will follow up in the clinic the next day. The patient was given both oral and written discharge and followup instructions. The patient voiced understanding including understanding of those signs and symptoms that would require emergency care and knows how to contact the office if there are any questions or concerns in the meantime. PREOPERATIVE PAIN: 10. POSTOPERATIVE PAIN: 08/01. FOLLOWUP: Follow up with pain diary in the pain Clinic in the morning. JOE HERNANDEZ /[id number] REGINA
== END 2019-05-10 13:00 | disposition home or self-care (01) ==
LOC: MW.SDS 10:51
PROVIDERS: ATTEND Anesthesiology
DX: G89.29 Other chronic pain (principal); M51.16 Intervertebral disc disorders with radiculopathy, lumbar region; M51.17 Intervertebral disc disorders with radiculopathy, lumbosacral region; M47.26 Other spondylosis with radiculopathy, lumbar region; M79.18 Myalgia, other site; I10 Essential (primary) hypertension; E78.00 Pure hypercholesterolemia, unspecified; E66.9 Obesity, unspecified; J45.909 Unspecified asthma, uncomplicated; F17.290 Nicotine dependence, other tobacco product, uncomplicated; F17.210 Nicotine dependence, cigarettes, uncomplicated; G57.90 Unspecified mononeuropathy of unspecified lower limb; G43.909 Migraine, unspecified, not intractable, without status migrainosus; M10.9 Gout, unspecified; Z88.8 Allergy status to other drugs, medicaments and biological substances; Z68.41 Body mass index [BMI] 40.0-44.9, adult; Z79.899 Other long term (current) drug therapy
CPT/HCPCS: 64450-50; 64493; 64494

== ENCOUNTER 2019-05-17 11:46 | Day surgery (SDC) | payer BC ==
[~2019-05-17 11:46] MED LIST changes: +Betamethasone Acetate/Betamethasone Sod Phosphate 30 MG/5 ML MDV EPIDUR ONE; -Iopamidol 200-M 10 ML vial ITHECAL ONE
--- NOTE | 2019-05-17 22:30 | OR ---
SURGEON: Susan Dacosta D.O. DATE OF PROCEDURE: 05/17/2019 PRIMARY SURGEON: Susan Dacosta D.O. [employer]: OR staff present: 1. RT Rohith. 2. Rell Figueroa RN. 3. Kaley Mac RN. WOUND CLASS: I. PREOPERATIVE DIAGNOSES: 1. Lumbar facet arthropathy, left L4-L5, L5-S1. 2. Chronic low back pain. POSTOPERATIVE DIAGNOSES: 1. Lumbar facet arthropathy, left L4-L5, L5-S1. 2. Chronic low back pain. PROCEDURES PERFORMED: 1. Left L3, L4, and L5 radiofrequency ablation. 2. Fluoroscopic guidance for needle placement. 3. Local with oral Valium for sedation. JOINTS FOR RADIOFREQUENCY ABLATION: Bilateral L4-5 and L5-S1 zygapophyseal joint. SCREENING QUESTIONS: The patient answered "No" to all the followin. Are you allergic to iodine, Betadine or latex? 2. Do have a bleeding disorder? 3. Are you on any anti-inflammatories or blood thinners? 4. Do you have any current local or systemic infections? DESCRIPTION OF PROCEDURE: The patient had the procedure thoroughly explained including all possible risks, benefits and alternatives. A consent was signed in my clinic indicating understanding and willingness to proceed. The patient presented to [facility] and was escorted to the dressing room to disrobe and change into a hospital gown. Preoperative vital signs were taken. The patient reported taking Valium 10 milligrams at home prior to the procedure. The patient was brought to the procedure room and placed in the prone position on the procedure room table. A pillow was placed under the hips in order to flatten the lumbar lordosis. The back was prepped with ChloraPrep times three and sterilely draped. All personnel in the operating room were dressed in appropriate attire including surgical scrubs, head and shoe covers. This was to ensure sterility while in the treatment room. During the time fluoroscopy was in use all personnel in the operating room wore lead roy with thyroid collars. Sterile technique was used during the procedure. The skin overlying the target nerves were anesthetized with 2% Lidocaine Preservative-Free in a sterile 27-gauge 1.5 inch needle. The deep tissues were likewise infiltrated. Standard insulated radiofrequency probe needles with 10 millimeter active tips were inserted at the appropriate sites for the left L3, L4 and L5 dorsal ramus nerves forradiofrequency ablation. Proper placement was determined both fluoroscopically and with test stimulation at each primary site with 50 hertz for sensory and 2 hertz for motor stimulation. No radicular stimulation was identified and no distal motor activity was noted in the lower extremities. Radiofrequency denervation was performed at each site for 60 seconds at 80 degrees centigrade and repeated times two. The patient's nerves were numbed with a mixture of 12 milligrams of Celestone and 3 cubic centimeters of 2% Lidocaine and 3 cubic centimeters of 0.5% Ropivacaine. This was done for patient comfort prior to lesioning; 1 cubic centimeter total was injected at each site. Then the radiofrequency ablation needles were advanced under direct fluoroscopy and viewed in AP and oblique views. Stimulatory patterns were found to be excellent. Each nerve was lesioned twice. The patient tolerated the procedure well and had no complications. The vital signs were stable during and after the procedure. The staff escorted the patient to the recovery room area and the patient was released in stable condition after a brief stay in the recovery room monitored by the nurse. The patient was given both oral and written discharge and follow up instructions. The patient understands and knows to contact the office if there are any questions or concerns in the meantime. The patient has an appointment to follow up in three weeks. PREOPERATIVE PAIN: 10/10. POSTOPERATIVE PAIN: 0/10. FOLLOWUP: Follow up in the Pain Clinic in 1 month. JOE / DAVID /[id number] REGINA
== END 2019-05-17 15:25 | disposition home or self-care (01) ==
LOC: MW.SDS 11:46
PROVIDERS: ATTEND Anesthesiology
DX: G89.29 Other chronic pain (principal); M47.26 Other spondylosis with radiculopathy, lumbar region; M47.817 Spondylosis without myelopathy or radiculopathy, lumbosacral region; M51.16 Intervertebral disc disorders with radiculopathy, lumbar region; M79.18 Myalgia, other site; M10.9 Gout, unspecified; J45.909 Unspecified asthma, uncomplicated; I10 Essential (primary) hypertension; E78.00 Pure hypercholesterolemia, unspecified; G43.909 Migraine, unspecified, not intractable, without status migrainosus; F17.290 Nicotine dependence, other tobacco product, uncomplicated; Z88.8 Allergy status to other drugs, medicaments and biological substances; Z79.899 Other long term (current) drug therapy
CPT/HCPCS: 64635; 64636; J0702

== ENCOUNTER 2019-06-13 12:13 | Emergency (ER) | payer BC ==
--- NOTE | 2019-06-13 12:58 | EDM.PDOC ---
ED HPI GENERAL MEDICAL PROBLEM - General Chief Complaint: Back Pain or Injury Stated Complaint: LOWER BACK PAIN Time Seen by Provider: 06/13/19 12:18 Source of Information: Reports: Patient History Limitations: Reports: No Limitations - History of Present Illness INITIAL COMMENTS - FREE TEXT/NARRATIVE: HISTORY AND PHYSICAL: History of present illness: Patient is a 33-year-old male who presents to the ED today with concern of chronic low back pain. Patient does follow with the pain clinic with Dr. Mcallister. Patient states that he has recently been having kidney issues with protein in his urine and is following with a primary care provider in the residency clinic for evaluation of his kidneys. Patient states he ran out of his Vermilion that is prescribed by Dr. Mcallister with his pain contract over the past 2 days. Patient states he was told by his primary care provider not to take NSAIDs due to his kidneys. Patient states he called Dr. Mcallister's clinic today but she is gone for the holidays. Patient denies any change of his chronic low back pain and states that he has a history of a bulging disc and some "facet issues." Patient denies any loss or retention of bowel bladder function or saddle anesthesia. Patient denies fever, chills, chest pain, shortness of breath, or cough. Denies headache, neck stiff ness, change in vision, syncope, or near syncope. Denies nausea, vomiting, abdominal pain, diarrhea, constipation, or dysuria. Has not noted any blood in urine or stool. Patient has been eating and drinking appropriately. Review of systems: As per history of present illness and below otherwise all systems reviewed and negative. Past medical history: As per history of present illness and as reviewed below otherwise noncontributory. Surgical history: As per history of present illness and as reviewed below otherwise noncontributory. Social history: See social history for further information Family history: As per history of present illness and as reviewed below otherwise noncontributory. Physical exam: General: Patient is alert, oriented, and in no acute distress. Patient sitting comfortably on exam table. HEENT: Atraumatic, normocephalic, pupils equal and reactive bilaterally, negative for conjunctival pallor or scleral icterus, mucous membranes moist, TMs normal bilaterally, throat clear, neck supple, nontender, trachea midline. No drooling or trismus noted. No meningeal signs. No hot potato voice noted. Lungs: Clear to auscultation, breath sounds equal bilaterally, chest nontender. Heart: S1S2, regular rate and rhythm without overt murmur Abdomen: Soft, nondistended, nontender. Negative for masses or hepatosplenomegaly. Negative for costovertebral tenderness. Pelvis: Stable nontender. Genitourinary: Deferred. Rectal: Deferred. Skin: Intact, warm, dry. No lesions or rashes noted. Extremities: Atraumatic, negative for cords or calf pain. Neurovascular unremarkable. No obvious deformity of the complete spine. No step-offs, crepitus, or point tenderness to palpation of the complete spine. Patient does have full range of motion of the complete spine but does have pain with ROM of the lumbar spine. Neuro: Awake, alert, oriented. Cranial nerves II through XII unremarkable. Cerebellum unremarkable. Motor and sensory unremarkable throughout. Exam nonfocal. Notes: Patient states he is concerned because he was taking NSAIDs up until a few days ago and is concerned about his kidney function. I did offer Tylenol for pain but patient declines. Voices understanding and is agreeable to plan of care. Denies any further questions or concerns at this time. Diagnostics: CBC, CMP, UA Therapeutics: None Prescription: None Impression: Chronic low back pain Medical screening exam Plan: 1. You can use Tylenol as directed for pain and discomfort. Follow-up with the pain specialist, Dr. Mcallister, as scheduled and as discussed. 2. Follow-up with your primary care provider as scheduled and as discussed. Return to the ED as needed and as discussed. Definitive disposition and diagnosis as appropriate pending reevaluation and review of above. Left Back Pain Score (Numeric/FACES): 8 - Related Data Allergies Allergy/AdvReac Type Severity Reaction Status Date / Time beclomethasone Allergy Other Verified 06/13/19 12:33 [From Vanceril] tizanidine Allergy Cannot Verified 06/13/19 12:33 Remember Home Meds: Home Meds Allopurinol [Zyloprim] 300 mg PO DAILY 02/14/17 [History] Lisinopril 5 mg PO DAILY 07/16/18 [History] Propranolol [Inderal] 20 mg PO TID 12/13/18 [History] Testosterone Cypionate 0.75 ml IM WEEKLY 12/13/18 [History] Gabapentin [Neurontin] 300 mg PO TID 12/15/18 [History] Diclofenac Sodium [Voltaren] 1 tab PO ASDIRECTED PRN 06/13/19 [History] Methocarbamol [Robaxin] 500 mg PO DAILY 06/13/19 [History] Tamsulosin HCl [Flomax] 0.4 mg PO DAILY 06/13/19 [History] Past Medical History - Past Health History Medical/Surgical History: Denies Medical/Surgical History HEENT History: Reports: Other (See Below) Other HEENT History: wears glasses Cardiovascular History: Reports: High Cholesterol, Hypertension Respiratory History: Reports: Asthma, Sleep Apnea Other Respiratory History: Uses CPAP Gastrointestinal History: Reports: GERD, Hemorrhoids, Other (See Below) Other Gastrointestinal History: hx of Colitis and C-Diff Genitourinary History: Reports: Renal Calculus Other Genitourinary History: has passed stones Musculoskeletal History: Reports: Back Pain, Chronic, Fracture Other Musculoskeletal History: hx of fx arm, ankle, ribs and vertebrate Neurological History: Reports: Concussion, Migraines, Other (See Below) Other Neuro History: hx of essential tremors that "disappeared after a few months" Psychiatric History: Reports: None Endocrine/Metabolic History: Reports: Obesity/BMI 30+ Other Endocrine/Metabolic History: low testosterone Hematologic History: Reports: None Immunologic History: Reports: None Oncologic (Cancer) History: Reports: None Dermatologic History: Reports: None - Infectious Disease History Infectious Disease History: Reports: None - Past Surgical History Head Surgeries/Procedures: Reports: None GI Surgical History: Reports: Colonoscopy, Other (See Below) Other GI Surgeries/Procedures: endoscopy Social & Family History - Family History Family Medical History: Noncontributory - Caffeine Use Caffeine Use: Reports: Coffee - Recreational Drug Use Recreational Drug Use: No ED ROS GENERAL - Review of Systems Review Of Systems: Comprehensive ROS is negative, except as noted in HPI. ED EXAM, GENERAL - Physical Exam Exam: See Below (see dictation) Course - Vital Signs Last Recorded V/S: Last Vital Signs Temp 97.2 F 06/13/19 12:36 Pulse 77 06/13/19 12:36 Resp 16 06/13/19 12:36 BP 159/99 H 06/13/19 12:36 Pulse Ox 97 06/13/19 12:36 - Orders/Labs/Meds Orders: Active Orders 24 hr Category Date Time Status COMPREHENSIVE METABOLIC PN,CMP [CHEM] Stat Lab 06/13/19 13:38 Results Labs: Laboratory Tests 06/13/19 06/13/19 06/13/19 Range/Units 12:29 13:38 13:38 WBC 7.37 (4.0-11.0) K/uL RBC 5.36 (4.50-5.90) M/uL Hgb 16.9 (13.0-17.0) g/dL Hct 48.0 (38.0-50.0) % MCV 89.6 (80.0-98.0) fL MCH 31.5 (27.0-32.0) pg MCHC 35.2 (31.0-37.0) g/dL RDW Std Deviation 44.8 (28.0-62.0) fl RDW Coeff of James 14 (11.0-15.0) % Plt Count 233 (150-400) K/uL MPV 10.20 (7.40-12.00) fL Neut % (Auto) 62.3 (48.0-80.0) % Lymph % (Auto) 29.2 (16.0-40.0) % [place] % (Auto) 6.4 (0.0-15.0) % Eos % (Auto) 1.8 (0.0-7.0) % Baso % (Auto) 0.3 (0.0-1.5) % Neut # (Auto) 4.6 (1.4-5.7) K/uL Lymph # (Auto) 2.2 (0.6-2.4) K/uL [place] # (Auto) 0.5 (0.0-0.8) K/uL Eos # (Auto) 0.1 (0.0-0.7) K/uL Baso # (Auto) 0.0 (0.0-0.1) K/uL Nucleated RBC % 0.0 /100WBC Nucleated RBCs # 0 K/uL Sodium 139 (136-148) mmol/L Potassium 3.9 (3.5-5.1) mmol/L Chloride 103 (98-107) mmol/L Carbon Dioxide 24.8 (21.0-32.0) mmol/L BUN 13 (7.0-18.0) mg/dL Creatinine 0.8 (0.8-1.3) mg/dL Est Cr Clr Drug Dosing TNP Estimated GFR (MDRD) > 60.0 ml/min Glucose 136 H (74-106) mg/dL Calcium 9.3 (8.5-10.1) mg/dL Total Bilirubin 0.4 (0.2-1.0) mg/dL ALT 63 (14-63) IU/L Alkaline Phosphatase 72 (46-116) U/L Total Protein 7.9 (6.4-8.2) g/dL Albumin 3.9 (3.4-5.0) g/dL Globulin 4.0 (2.6-4.0) g/dL Albumin/Globulin Ratio 1.0 (0.9-1.6) Urine Color YELLOW Urine Appearance CLEAR Urine pH 6.0 (5.0-8.0) Ur Specific [place] >= 1.030 (1.001-1.035) Urine Protein 30 H (NEGATIVE) mg/dL Urine Glucose (UA) NEGATIVE (NEGATIVE) mg/dL Urine Ketones TRACE H (NEGATIVE) mg/dL Urine Occult Blood TRACE-INTACT H (NEGATIVE) Urine Nitrite NEGATIVE (NEGATIVE) Urine Bilirubin SMALL H (NEGATIVE) Urine Ictotest NEGATIVE Urine Urobilinogen 0.2 (<2.0) EU/dL Ur Leukocyte Esterase NEGATIVE (NEGATIVE) Urine RBC 0-1 (0-2/HPF) Urine WBC 0-1 (0-5/HPF) Ur Epithelial Cells RARE (NONE-FEW) Urine Bacteria RARE (NEGATIVE) Urine Mucus LIGHT (NONE-MOD) Departure - Departure Time of Disposition: 14:37 Disposition: Home, Self-Care 01 Clinical Impression: Encounter for medical screening examination Chronic low back pain Qualifiers: Back pain laterality: bilateral Sciatica presence: without sciatica Qualified Code(s): M54.5 - Low back pain - Discharge Information Referrals: Justino Johnson MD [Primary Care Provider] - Forms: ED Department Discharge Additional Instructions: The following information is given to patients seen in the emergency department who are being discharged to home. This information is to outline your options for follow-up care. We provide all patients seen in our emergency department with a follow-up referral. The need for follow-up, as well as the timing and circumstances, are variable depending upon the specifics of your emergency department visit. If you don't have a primary care physician on staff, we will provide you with a referral. We always advise you to contact your personal physician following an emergency department visit to inform them of the circumstance of the visit and for follow-up with them and/or the need for any referrals to a consulting specialist. The emergency department will also refer you to a specialist when appropriate. This referral assures that you have the opportunity for follow-up care with a specialist. All of these measure are taken in an effort to provide you with optimal care, which includes your follow-up. Under all circumstances we always encourage you to contact your private physician who remains a resource for coordinating your care. When calling for follow-up care, please make the office aware that this follow-up is from your recent emergency room visit. If for any reason you are refused follow-up, please contact the [facility] Emergency Department at and asked to speak to the emergency department charge nurse. [facility] [address] [place] [id number] [facility] [address] [place] [address] 1. You can use Tylenol as directed for pain and discomfort. Follow-up with the pain specialist, Dr. Mcallister, as scheduled and as discussed. 2. Follow-up with your primary care provider as scheduled and as discussed. Return to the ED as needed and as discussed. Sepsis Event Note - Evaluation Sepsis Screening Result: No Definite Risk - Focused Exam Vital Signs: Vital Signs Temp Pulse Resp BP Pulse Ox 06/13/19 12:36 97.2 F 77 16 159/99 H 97 Date Exam was Performed: 06/13/19 Time Exam was Performed: 14:37 - My Orders Last 24 Hours: My Active Orders 06/13/19 13:38 COMPREHENSIVE METABOLIC PN,CMP [CHEM] Stat - Assessment/Plan Last 24 Hours: My Active Orders 06/13/19 13:38 COMPREHENSIVE METABOLIC PN,CMP [CHEM] Stat
[2019-06-13 14:26] LABS: BLOOD UREA NITROGEN,BUN 13 mg/dL (7.0-18.0); CARBON DIOXIDE,CO2 24.8 mmol/L (21.0-32.0); CHLORIDE,CL 103 mmol/L (98-107); GLUCOSE RANDOM 136 mg/dL (74-106); POTASSIUM,K 3.9 mmol/L (3.5-5.1); SODIUM,NA 139 mmol/L (136-148)
[2019-06-13 17:54] VITALS: BP 144/79; PULSE 84
== END 2019-06-13 14:50 | disposition home or self-care (01) ==
LOC: MW.ED 12:13
DX: Z03.89 Encounter for observation for other suspected diseases and conditions ruled out (principal); G89.29 Other chronic pain; M54.5 Low back pain; I10 Essential (primary) hypertension; G47.30 Sleep apnea, unspecified; E66.9 Obesity, unspecified; Z88.8 Allergy status to other drugs, medicaments and biological substances; Z79.899 Other long term (current) drug therapy
CPT/HCPCS: 36415; 80053; 81001; 85025; 99282; 99283

== ENCOUNTER 2019-08-23 07:22 | Observation (INO) | payer BC ==
[2019-08-23 08:04] LABS: BLOOD UREA NITROGEN,BUN 15 mg/dL (7.0-18.0); CARBON DIOXIDE,CO2 24.4 mmol/L (21.0-32.0); CHLORIDE,CL 103 mmol/L (98-107); GLUCOSE RANDOM 113 mg/dL (74-106); POTASSIUM,K 3.7 mmol/L (3.5-5.1); SODIUM,NA 139 mmol/L (136-148)
--- NOTE | 2019-08-23 09:40 | EDM.PDOC ---
ED [facility] GENERAL MEDICAL PROBLEM - General Chief Complaint: Back Pain or Injury Stated Complaint: BACK PAIN Time Seen by Provider: 08/23/19 07:31 - History of Present Illness INITIAL COMMENTS - FREE TEXT/NARRATIVE: HPI 34-year-old obese male with history of chronic back pain presents with mildly worsened back pain after awakening and noting fecal incontinence this morning. Patient endorsed mildly loose stools yesterday but otherwise denies diarrhea, nausea, vomiting, or abdominal pain. Notes normal perineal sensation. Patient denies a history of recent trauma, fevers, chills, unexpected weight loss, decreased perineal sensation when toileting, difficulty urinating or incontinence, morning stiffness, IV drug use, alcoholism, recent invasive medical procedures, presyncope, abdominal pain, or dysuria. Smokin pack year history. Anticoagulation: denies anticoagulation and Plavix, denies stents. M/S/F/SocHx notable for: please see HPI; remainder reviewed with patient and in chart. ROS: Negative constitutional, eye, cardiovascular, pulmonary, GI, , MSK, skin , neurologic, psychiatric, endocrine unless noted in the HPI. Exam HR 87, BP 189/103, RR 16, T 35.7 F, SaO2 99 % on room air; at 7:31 AM. Gen: Pleasant, non-toxic appearing, resting comfortably. HEENT: NC, AT, PEERL, EOMI. Resp: Clear to auscultation bilaterally. Card: RRR GI: ND, non-tender to palpation, no palpable midline masses, no palpable midline pulsatility. : No CVA tenderness to percussion bilaterally. MSK: No visible deformities, strength and tone WNL. No lower thoracic or lumbar spinal TTP, step offs or deformities. No paraspinal TTP. Skin: Normal color with no visible lesions. Neuro: alert and oriented 3, no facial asymmetry, vision and hearing WNL. Straight leg raise test - negative right, negative left. BLE distal sensation intact, 5/5 dorsiflexion / plantarflexion bilaterally. Gait: mildly antalgic, normal, narrow based gait, able to walk unassisted and stand on heels and toes with full apparent strength. : normal perineal sensation, normal rectal tone. Psych: Mood and affect appropriate. Labs / Imaging (pertinent): postvoid residual 11 ML. WBC 6.96, HB 18.1, ESR 1, sodium 139, potassium 3.7, CRP 1.60. UA - rare bacteria, rare epithelial cells, negative leukocyte esterase, negative nitrate. MDM Previous chart, nursing note, and vitals reviewed. A: 34-year-old obese male with history of chronic back pain presents with mildly worsened back pain after awakening and noting fecal incontinence this morning. DDx: muscle strain, muscle spasm, sciatica, lumbar radiculopathy, cauda equina syndrome, spinal cord abscess, vertebral osteomyelitis, vertebral diskitis, fracture, seronegative spondyloarthropathy, abdominal aortic aneurysm, abdominal aortic dissection, spontaneous hematoma, malignant spinal cord compression. Evaluation: * Cauda equina low(er) concern for cauda equina syndrome, normal PVR, normal perineal sensation, normal rectal tone, however patients history of fecal incontinence. ESR WNL, CRP within acceptable limits, no leukocytosis, no fever, no point tenderness palpation. Given these features the patient needs emergent MRI, however does not require immediately transfer. MRI at 1 PM available and ordered. Patient admitted to the hospitalist for further care. * Infection - abscess, vertebral osteomyelitis, and diskitis are unlikely as the patient is immunocompetent and is with an absence of infectious signs and risk factors on ROS[ and a lack of point tendernes. * Fracture - doubt given the absence of spinal TTP and lack of prior trauma * Seronegative spondyloarthropathy - unlikely, no further evaluation currently indicated given the absence of morning stiffness and negative RA, psoriatic arthritis, and autoimmune disease history. * AAA or Dissection - given the the lack of a palpable pulsatile abdominal mass , abdominal pain, presyncope, an abdominal aortic aneurysm as well as dissection is considered unlikely and further investigation is not currently indicated. * Spinal Metastases - given the unremarkable ROS, absence of point spinal tenderness on exam and the lack of discernible neurological deficit, no further testing regarding this etiology is currently indicated. * Consider lumbar radiculopathy/MSK vs cauda equina syndrome is most likely cause of the patients symptoms Impression: Back Pain. lower back Pain Score (Numeric/FACES): 8 - Related Data Allergies Allergy/AdvReac Type Severity Reaction Status Date / Time beclomethasone Allergy Other Verified 08/23/19 07:30 [From Vanceril] tizanidine Allergy Cannot Verified 08/23/19 07:30 Remember Home Meds: Home Meds Allopurinol [Zyloprim] 300 mg PO DAILY 02/14/17 [History] Lisinopril 10 mg PO DAILY 07/16/18 [History] Propranolol [Inderal] 20 mg PO TID 12/13/18 [History] Testosterone Cypionate 0.75 ml IM WEEKLY 12/13/18 [History] Gabapentin [Neurontin] 300 mg PO TID 12/15/18 [History] Diclofenac Sodium [Voltaren] 1 tab TOP ASDIRECTED PRN 06/13/19 [History] Tamsulosin HCl [Flomax] 0.4 mg PO DAILY 06/13/19 [History] methocarbamoL [Robaxin] 750 mg PO TID 06/13/19 [History] Past Medical History - Past Health History Medical/Surgical History: Denies Medical/Surgical History HEENT History: Reports: Other (See Below) Other HEENT History: wears glasses Cardiovascular History: Reports: High Cholesterol, Hypertension Respiratory History: Reports: Asthma, Sleep Apnea Other Respiratory History: Uses CPAP Gastrointestinal History: Reports: GERD, Hemorrhoids, Other (See Below) Other Gastrointestinal History: hx of Colitis and C-Diff Genitourinary History: Reports: Renal Calculus Other Genitourinary History: has passed stones Musculoskeletal History: Reports: Back Pain, Chronic, Fracture Other Musculoskeletal History: hx of fx arm, ankle, ribs and vertebrate Neurological History: Reports: Concussion, Migraines, Other (See Below) Other Neuro History: hx of essential tremors that "disappeared after a few months" Psychiatric History: Reports: None Endocrine/Metabolic History: Reports: Obesity/BMI 30+ Other Endocrine/Metabolic History: low testosterone Hematologic History: Reports: None Immunologic History: Reports: None Oncologic (Cancer) History: Reports: None Dermatologic History: Reports: None - Infectious Disease History Infectious Disease History: Reports: Chicken Pox - Past Surgical History Head Surgeries/Procedures: Reports: None HEENT Surgical History: Reports: None Cardiovascular Surgical History: Reports: None Respiratory Surgical History: Reports: None GI Surgical History: Reports: Colonoscopy, Other (See Below) Other GI Surgeries/Procedures: endoscopy Male Surgical History: Reports: None Endocrine Surgical History: Reports: None Neurological Surgical History: Reports: None Musculoskeletal Surgical History: Reports: None Oncologic Surgical History: Reports: None Dermatological Surgical History: Reports: None Social & Family History - Family History Family Medical History: Noncontributory - Tobacco Use Smoking Status *Q: Never Smoker Second Hand Smoke Exposure: No - Caffeine Use Caffeine Use: Reports: Coffee - Recreational Drug Use Recreational Drug Use: No ED ROS GENERAL - Review of Systems Review Of Systems: See Below ED EXAM, GENERAL - Physical Exam Exam: See Below Course - Vital Signs Last Recorded V/S: Last Vital Signs Temp 35.7 C L 08/23/19 07:31 Pulse 87 08/23/19 07:31 Resp 16 08/23/19 07:31 BP 189/103 H 08/23/19 07:31 Pulse Ox 99 08/23/19 07:31 - Orders/Labs/Meds Orders: Active Orders 24 hr Category Date Time Status Communication Order [RC] STAT Care 08/23/19 08:00 Active Cervical Spine Comp wo Cont [MR] Stat Exams 08/23/19 07:41 Stop Req Cervical Spine Comp wo Cont [MR] Stat Exams 08/23/19 07:47 Ordered Thoracic Spine Comp wo Cont [MR] Stat Exams 08/23/19 07:41 Ordered Labs: Laboratory Tests 08/23/19 08/23/19 08/23/19 Range/Units 07:37 07:37 07:37 WBC 6.96 (4.0-11.0) K/uL RBC 5.79 (4.50-5.90) M/uL Hgb 18.1 H (13.0-17.0) g/dL Hct 52.3 H (38.0-50.0) % MCV 90.3 (80.0-98.0) fL MCH 31.3 (27.0-32.0) pg MCHC 34.6 (31.0-37.0) g/dL RDW Std Deviation 43.0 (28.0-62.0) fl RDW Coeff of James 13 (11.0-15.0) % Plt Count 220 (150-400) K/uL MPV 10.50 (7.40-12.00) fL Neut % (Auto) 55.4 (48.0-80.0) % Lymph % (Auto) 34.5 (16.0-40.0) % [place] % (Auto) 7.3 (0.0-15.0) % Eos % (Auto) 2.4 (0.0-7.0) % Baso % (Auto) 0.4 (0.0-1.5) % Neut # (Auto) 3.9 (1.4-5.7) K/uL Lymph # (Auto) 2.4 (0.6-2.4) K/uL [place] # (Auto) 0.5 (0.0-0.8) K/uL Eos # (Auto) 0.2 (0.0-0.7) K/uL Baso # (Auto) 0.0 (0.0-0.1) K/uL Nucleated RBC % 0.0 /100WBC Nucleated RBCs # 0 K/uL ESR 1 (0-14) mm/hr Sodium 139 (136-148) mmol/L Potassium 3.7 (3.5-5.1) mmol/L Chloride 103 (98-107) mmol/L Carbon Dioxide 24.4 (21.0-32.0) mmol/L BUN 15 (7.0-18.0) mg/dL Creatinine 0.9 (0.8-1.3) mg/dL Est Cr Clr Drug Dosing 123.18 mL/min Estimated GFR (MDRD) > 60.0 ml/min Glucose 113 H (74-106) mg/dL Calcium 9.3 (8.5-10.1) mg/dL C-Reactive Protein 1.60 H (0.00-0.90) mg/dL Urine Color Urine Appearance Urine pH (5.0-8.0) Ur Specific Transfer (1.001-1.035) Urine Protein (NEGATIVE) mg/dL Urine Glucose (UA) (NEGATIVE) mg/dL Urine Ketones (NEGATIVE) mg/dL Urine Occult Blood (NEGATIVE) Urine Nitrite (NEGATIVE) Urine Bilirubin (NEGATIVE) Urine Ictotest Urine Urobilinogen (<2.0) EU/dL Ur Leukocyte Esterase (NEGATIVE) Urine RBC (0-2/HPF) Urine WBC (0-5/HPF) Ur Epithelial Cells (NONE-FEW) Urine Bacteria (NEGATIVE) 08/23/19 Range/Units 08:23 WBC (4.0-11.0) K/uL RBC (4.50-5.90) M/uL Hgb (13.0-17.0) g/dL Hct (38.0-50.0) % MCV (80.0-98.0) fL MCH (27.0-32.0) pg MCHC (31.0-37.0) g/dL RDW Std Deviation (28.0-62.0) fl RDW Coeff of James (11.0-15.0) % Plt Count (150-400) K/uL MPV (7.40-12.00) fL Neut % (Auto) (48.0-80.0) % Lymph % (Auto) (16.0-40.0) % [place] % (Auto) (0.0-15.0) % Eos % (Auto) (0.0-7.0) % Baso % (Auto) (0.0-1.5) % Neut # (Auto) (1.4-5.7) K/uL Lymph # (Auto) (0.6-2.4) K/uL [place] # (Auto) (0.0-0.8) K/uL Eos # (Auto) (0.0-0.7) K/uL Baso # (Auto) (0.0-0.1) K/uL Nucleated RBC % /100WBC Nucleated RBCs # K/uL ESR (0-14) mm/hr Sodium (136-148) mmol/L Potassium (3.5-5.1) mmol/L Chloride (98-107) mmol/L Carbon Dioxide (21.0-32.0) mmol/L BUN (7.0-18.0) mg/dL Creatinine (0.8-1.3) mg/dL Est Cr Clr Drug Dosing mL/min Estimated GFR (MDRD) ml/min Glucose (74-106) mg/dL Calcium (8.5-10.1) mg/dL C-Reactive Protein (0.00-0.90) mg/dL Urine Color YELLOW Urine Appearance CLEAR Urine pH 6.0 (5.0-8.0) Ur Specific Transfer >= 1.030 (1.001-1.035) Urine Protein 100 H (NEGATIVE) mg/dL Urine Glucose (UA) NEGATIVE (NEGATIVE) mg/dL Urine Ketones 15 H (NEGATIVE) mg/dL Urine Occult Blood SMALL H (NEGATIVE) Urine Nitrite NEGATIVE (NEGATIVE) Urine Bilirubin SMALL H (NEGATIVE) Urine Ictotest NEGATIVE Urine Urobilinogen 0.2 (<2.0) EU/dL Ur Leukocyte Esterase NEGATIVE (NEGATIVE) Urine RBC 1-2 (0-2/HPF) Urine WBC 0-1 (0-5/HPF) Ur Epithelial Cells RARE (NONE-FEW) Urine Bacteria RARE (NEGATIVE) Departure - Departure Time of Disposition: 09:40 Disposition: Admitted As Inpatient 66 Clinical Impression: Back pain - Discharge Information Referrals: Justino Johnson MD [Primary Care Provider] - Sepsis Event Note - Evaluation Sepsis Screening Result: No Definite Risk - Focused Exam Vital Signs: Vital Signs Temp Pulse Resp BP Pulse Ox 08/23/19 07:31 35.7 C L 87 16 189/103 H 99 Date Exam was Performed: 08/23/19 Time Exam was Performed: 09:39 - My Orders Last 24 Hours: My Active Orders 08/23/19 07:41 Cervical Spine Comp wo Cont [MR] Stat Thoracic Spine Comp wo Cont [MR] Stat 08/23/19 07:47 Cervical Spine Comp wo Cont [MR] Stat 08/23/19 08:00 Communication Order [RC] STAT - Assessment/Plan Last 24 Hours: My Active Orders 08/23/19 07:41 Cervical Spine Comp wo Cont [MR] Stat Thoracic Spine Comp wo Cont [MR] Stat 08/23/19 07:47 Cervical Spine Comp wo Cont [MR] Stat 08/23/19 08:00 Communication Order [RC] STAT
[2019-08-23] MEDS ORDERED: Ibuprofen 600 MG Tab PO ONE (09:55)
--- NOTE | 2019-08-23 11:02 | PCM.HP.2 ---
H&P History of Present Illness - General Date of Service: 08/23/19 Admit Problem/Dx: Admission Diagnosis/Problem Admission Diagnosis/Problem Back pain - History of Present Illness Initial Comments - Free Text/Narative: 34 y/o male with history of chronic pain, disc bulging who presented to the ER complaining of stool incontinence. Patient states he had 3 bowel movements yesterday and this morning he woke up and he had a little bit of stool in his trousers when he was about to take a shower. He denies any worsening muscle strength. No ambulatory changes from baseline. No recent falls, trauma. No urinary incontinence. ER did a rectal and tone was intact. No perineal numbness. Patient was more concerned about his incontinence. No chest pain, dyspnea, abdominal pain. No dysuria, diarrhea. Does endorse chronic constipation. lower back Pain Score (Numeric/FACES): 8 - Related Data Allergies/Adverse Reactions: Allergies Allergy/AdvReac Type Severity Reaction Status Date / Time beclomethasone Allergy Other Verified 08/23/19 10:56 [From Theresa] tizanidine Allergy Cannot Verified 08/23/19 10:56 Remember trazodone Allergy Other Verified 08/23/19 10:56 Home Medications: Home Meds Allopurinol [Zyloprim] 300 mg PO DAILY 02/14/17 [History] Lisinopril 10 mg PO DAILY 07/16/18 [History] Propranolol [Inderal] 20 mg PO TID 12/13/18 [History] Testosterone Cypionate 0.75 ml IM WEEKLY 12/13/18 [History] Gabapentin [Neurontin] 300 mg PO TID 12/15/18 [History] Diclofenac Sodium [Voltaren] 1 applic TOP ASDIRECTED PRN 06/13/19 [History] Tamsulosin HCl [Flomax] 0.4 mg PO DAILY 06/13/19 [History] methocarbamoL [Robaxin] 750 mg PO TID 06/13/19 [History] Omeprazole 40 mg PO ACBREAKFAST 08/23/19 [History] Past Medical History - Past Health History Medical/Surgical History: Denies Medical/Surgical History HEENT History: Reports: Other (See Below) Other HEENT History: wears glasses Cardiovascular History: Reports: High Cholesterol, Hypertension Respiratory History: Reports: Asthma, Sleep Apnea Other Respiratory History: Uses CPAP Gastrointestinal History: Reports: GERD, Hemorrhoids, Other (See Below) Other Gastrointestinal History: hx of Colitis and C-Diff Genitourinary History: Reports: Renal Calculus Other Genitourinary History: has passed stones Musculoskeletal History: Reports: Back Pain, Chronic, Fracture Other Musculoskeletal History: hx of fx arm, ankle, ribs and vertebrate Neurological History: Reports: Concussion, Migraines, Other (See Below) Other Neuro History: hx of essential tremors that "disappeared after a few months" Psychiatric History: Reports: None Endocrine/Metabolic History: Reports: Obesity/BMI 30+ Other Endocrine/Metabolic History: low testosterone Hematologic History: Reports: None Immunologic History: Reports: None Oncologic (Cancer) History: Reports: None Dermatologic History: Reports: None - Infectious Disease History Infectious Disease History: Reports: Chicken Pox - Past Surgical History Head Surgeries/Procedures: Reports: None HEENT Surgical History: Reports: None Cardiovascular Surgical History: Reports: None Respiratory Surgical History: Reports: None GI Surgical History: Reports: Colonoscopy, Other (See Below) Other GI Surgeries/Procedures: endoscopy Male Surgical History: Reports: None Endocrine Surgical History: Reports: None Neurological Surgical History: Reports: None Musculoskeletal Surgical History: Reports: None Oncologic Surgical History: Reports: None Dermatological Surgical History: Reports: None Social & Family History - Family History Family Medical History: Noncontributory - Tobacco Use Smoking Status *Q: Never Smoker Second Hand Smoke Exposure: No - Caffeine Use Caffeine Use: Reports: Coffee - Recreational Drug Use Recreational Drug Use: No H&P Review of Systems - Review of Systems: Review Of Systems: Comprehensive ROS is negative, except as noted in HPI. Exam - Exam Exam: See Below - Vital Signs Vital Signs: Last Vital Signs Temp 36.2 C 08/23/19 10:53 Pulse 85 08/23/19 10:53 Resp 18 08/23/19 10:53 BP 144/92 H 08/23/19 10:53 Pulse Ox 97 08/23/19 10:53 Weight: 132.2 kg - Exam General: Alert, Oriented, Cooperative Lungs: Clear to Auscultation, Normal Respiratory Effort. No: Crackles, Wheezing Cardiovascular: Regular Rate, Regular Rhythm GI/Abdominal Exam: Normal Bowel Sounds, Soft, Non-Tender, No Distention Extremities: Normal Inspection, No Pedal Edema Skin: Warm, Dry Neuro Extensive - Mental Status: Alert, Oriented x3 - Patient Data Lab Results Last 24 hrs: Laboratory Results - last 24 hr 08/23/19 08/23/19 08/23/19 Range/Units 07:37 07:37 07:37 WBC 6.96 (4.0-11.0) K/uL RBC 5.79 (4.50-5.90) M/uL Hgb 18.1 H (13.0-17.0) g/dL Hct 52.3 H (38.0-50.0) % MCV 90.3 (80.0-98.0) fL MCH 31.3 (27.0-32.0) pg MCHC 34.6 (31.0-37.0) g/dL RDW Std Deviation 43.0 (28.0-62.0) fl RDW Coeff of James 13 (11.0-15.0) % Plt Count 220 (150-400) K/uL MPV 10.50 (7.40-12.00) fL Neut % (Auto) 55.4 (48.0-80.0) % Lymph % (Auto) 34.5 (16.0-40.0) % [place] % (Auto) 7.3 (0.0-15.0) % Eos % (Auto) 2.4 (0.0-7.0) % Baso % (Auto) 0.4 (0.0-1.5) % Neut # (Auto) 3.9 (1.4-5.7) K/uL Lymph # (Auto) 2.4 (0.6-2.4) K/uL [place] # (Auto) 0.5 (0.0-0.8) K/uL Eos # (Auto) 0.2 (0.0-0.7) K/uL Baso # (Auto) 0.0 (0.0-0.1) K/uL Nucleated RBC % 0.0 /100WBC Nucleated RBCs # 0 K/uL ESR 1 (0-14) mm/hr Sodium 139 (136-148) mmol/L Potassium 3.7 (3.5-5.1) mmol/L Chloride 103 (98-107) mmol/L Carbon Dioxide 24.4 (21.0-32.0) mmol/L BUN 15 (7.0-18.0) mg/dL Creatinine 0.9 (0.8-1.3) mg/dL Est Cr Clr Drug Dosing 123.18 mL/min Estimated GFR (MDRD) > 60.0 ml/min Glucose 113 H (74-106) mg/dL Calcium 9.3 (8.5-10.1) mg/dL C-Reactive Protein 1.60 H (0.00-0.90) mg/dL Urine Color Urine Appearance Urine pH (5.0-8.0) Ur Specific [place] (1.001-1.035) Urine Protein (NEGATIVE) mg/dL Urine Glucose (UA) (NEGATIVE) mg/dL Urine Ketones (NEGATIVE) mg/dL Urine Occult Blood (NEGATIVE) Urine Nitrite (NEGATIVE) Urine Bilirubin (NEGATIVE) Urine Ictotest Urine Urobilinogen (<2.0) EU/dL Ur Leukocyte Esterase (NEGATIVE) Urine RBC (0-2/HPF) Urine WBC (0-5/HPF) Ur Epithelial Cells (NONE-FEW) Urine Bacteria (NEGATIVE) 08/23/19 Range/Units 08:23 WBC (4.0-11.0) K/uL RBC (4.50-5.90) M/uL Hgb (13.0-17.0) g/dL Hct (38.0-50.0) % MCV (80.0-98.0) fL MCH (27.0-32.0) pg MCHC (31.0-37.0) g/dL RDW Std Deviation (28.0-62.0) fl RDW Coeff of James (11.0-15.0) % Plt Count (150-400) K/uL MPV (7.40-12.00) fL Neut % (Auto) (48.0-80.0) % Lymph % (Auto) (16.0-40.0) % [place] % (Auto) (0.0-15.0) % Eos % (Auto) (0.0-7.0) % Baso % (Auto) (0.0-1.5) % Neut # (Auto) (1.4-5.7) K/uL Lymph # (Auto) (0.6-2.4) K/uL [place] # (Auto) (0.0-0.8) K/uL Eos # (Auto) (0.0-0.7) K/uL Baso # (Auto) (0.0-0.1) K/uL Nucleated RBC % /100WBC Nucleated RBCs # K/uL ESR (0-14) mm/hr Sodium (136-148) mmol/L Potassium (3.5-5.1) mmol/L Chloride (98-107) mmol/L Carbon Dioxide (21.0-32.0) mmol/L BUN (7.0-18.0) mg/dL Creatinine (0.8-1.3) mg/dL Est Cr Clr Drug Dosing mL/min Estimated GFR (MDRD) ml/min Glucose (74-106) mg/dL Calcium (8.5-10.1) mg/dL C-Reactive Protein (0.00-0.90) mg/dL Urine Color YELLOW Urine Appearance CLEAR Urine pH 6.0 (5.0-8.0) Ur Specific [place] >= 1.030 (1.001-1.035) Urine Protein 100 H (NEGATIVE) mg/dL Urine Glucose (UA) NEGATIVE (NEGATIVE) mg/dL Urine Ketones 15 H (NEGATIVE) mg/dL Urine Occult Blood SMALL H (NEGATIVE) Urine Nitrite NEGATIVE (NEGATIVE) Urine Bilirubin SMALL H (NEGATIVE) Urine Ictotest NEGATIVE Urine Urobilinogen 0.2 (<2.0) EU/dL Ur Leukocyte Esterase NEGATIVE (NEGATIVE) Urine RBC 1-2 (0-2/HPF) Urine WBC 0-1 (0-5/HPF) Ur Epithelial Cells RARE (NONE-FEW) Urine Bacteria RARE (NEGATIVE) Result Diagrams: 08/23/19 07:37 08/23/19 07:37 Sepsis Event Note - Evaluation Sepsis Screening Result: No Definite Risk - Focused Exam Vital Signs: Vital Signs Temp Pulse Resp BP Pulse Ox 08/23/19 10:53 36.2 C 85 18 144/92 H 97 08/23/19 09:59 36.3 C 76 18 131/100 H 96 08/23/19 07:31 35.7 C L 87 16 189/103 H 99 Date Exam was Performed: 08/23/19 Time Exam was Performed: 11:13 Problem List Initiated/Reviewed/Updated: Yes Orders Last 24hrs: Active Orders 24 hr Category Date Time Status Patient Status [ADT] Stat ADT 08/23/19 09:40 Active Communication Order [RC] STAT Care 08/23/19 08:00 Active Cervical Spine Comp wo Cont [MR] Stat Exams 08/23/19 07:41 Stop Req Cervical Spine Comp wo Cont [MR] Stat Exams 08/23/19 07:47 Ordered Thoracic Spine Comp wo Cont [MR] Stat Exams 08/23/19 07:41 Ordered Assessment/Plan Comment:: A: 1. Stool incontinence 2. History of chronic pain, gout. P: 1. Will follow-up on MRI spine results later today. If normal, may be able to go home later today. Unlikely, that his symptoms are due to spinal compression syndrome. Likely his stool incontinence was secondary to his chronic constipation which he said he had 3 BM yesterday. Will give Norflex IM once for muscle spasms. Resume home medications. Dispo: 1-2 days.
[2019-08-23] MEDS ORDERED: Bisacodyl 5 MG Tab PO PRN (11:14)
[2019-08-23] MEDS ORDERED: Docusate Sodium 100 MG Cap PO PRN (11:14)
[2019-08-23] MEDS ORDERED: Ondansetron 4 MG Tab.DIS PO PRN (11:14)
[2019-08-23] MEDS ORDERED: Polyethylene Glycol 3350 Powder 17 GM Packet PO PRN (11:14)
[2019-08-23] MEDS ORDERED: Ondansetron 4 MG/2 ML SDV IVPUSH PRN (11:14)
[2019-08-23] MEDS ORDERED: Acetaminophen 325 MG Tab PO PRN (11:14)
[2019-08-23] MEDS ORDERED: Albuterol 0.083% 2.5 MG/3 ML Neb Soln NEB PRN (11:14)
[2019-08-23] MEDS: Enoxaparin 40 MG/0.4 ML Syringe SUBCUT SCH (12:06)
[2019-08-23] MEDS ORDERED: LORazepam 2 MG/ML SDV IVPUSH ONE (12:55)
--- NOTE | 2019-08-23 14:39 | MR ---
INDICATION: 34-year-old male. Neck pain back pain. Incontinent. TECHNIQUE: Cervical spine scanned with sagittal T1, sagittal axial T2 and sagittal STIR images. FINDINGS: Some motion artifact is present. Alignment of the cervical spine is within normal limits. The lower brainstem cervical upper thoracic spinal cord appear intrinsically normal. There is no stenosis of the foramen magnum level C1 or C2 levels. At C2-3 there is no disc herniation or stenosis. At C3-4 no disc herniation central or lateral stenosis. At C4-5 no disc herniation central or lateral stenosis. At C5-6 no disc herniation central or lateral stenosis. At C6-7 no disc herniation central or lateral stenosis. At C7-T1 no disc herniation central or lateral stenosis. At the T1-2 level small disc bulge to the right without stenosis the spinal canal or neural foramen. IMPRESSION: 1. No evidence of cervical disc herniation, central or lateral stenosis or specific nerve impingement. 2. No evidence of intradural pathology. 3. Motion artifact. Dictated by Zhao Ceballos MD @ Aug 23 2019 2:35PM Signed by Dr. Zhao Ceballos @ Aug 23 2019 2:38PM
--- NOTE | 2019-08-23 14:45 | MR ---
INDICATION: 34-year-old male. Back pain. Fecal incontinence. TECHNIQUE: Sagittal T1, sagittal and axial T2 and sagittal STIR images. FINDINGS: Alignment of the thoracic spine is within normal limits. There is no acute compression fracture. There is no paraspinal or epidural mass or hematoma. The thoracic spinal cord appears normal in morphology and signal intensity there is no evidence of intradural lesion. There is multilevel thoracic spondylosis. At the T1-2 level a shallow right paracentral disc osteophyte complex causes thecal sac deformity without cord impingement or significant neural foraminal narrowing. At T2-3 some asymmetric uncinate process hypertrophy on the right without stenosis of the spinal canal and only mild right neural foraminal narrowing. No disc herniation or stenosis at the T3-4 T4-5 levels. At T5-6 there is shallow broad-based posterior disc protrusion causes thecal sac deformity and contacts but does not compress the spinal cord. The neural foramen are adequately patent. At T6-7 shallow broad-based posterior disc protrusion causes thecal sac deformity and contacts but does not compress the spinal cord. Neural foramen are adequately patent. At T7-8 shallow broad-based disc protrusion causes thecal sac deformity and contacts but does not compress the spinal cord. The neural foramen are adequately patent. No disc herniation or stenosis between T8 and L1. Mild degenerative anterior endplate spurring at T10-11. IMPRESSION: 1. Multilevel thoracic spondylosis. 2. Small disc bulges and disc protrusions are noted at the T1-2, T2-3, T5-6, T6-7 and T7-8 levels. 3. No high-grade central canal spinal stenosis nor cord compression. No high-grade neural foraminal narrowing. 4. Intrinsically normal appearing thoracic spinal cord. No evidence of intradural lesion. Dictated by Zhao Ceballos MD @ Aug 23 2019 2:35PM Signed by Dr. Zhao Ceballos @ Aug 23 2019 2:43PM
[2019-08-23] MEDS: Gabapentin 300 MG Cap PO SCH ×2 (14:56→22:29)
[2019-08-23] MEDS ORDERED: Ibuprofen 600 MG Tab PO PRN (16:00)
[2019-08-23] MEDS ORDERED: LORazepam 2 MG/ML SDV IVPUSH PRN (18:33)
[2019-08-23] MEDS ORDERED: Gadobenate Dimeglumine 529 MG/ML 20 ML SDV IVPUSH STA (18:52)
--- NOTE | 2019-08-23 20:09 | MR ---
INDICATION: Back pain. Incontinence. TECHNIQUE: Multiplanar multisequence MR images were acquired through the lumbar spine prior to and following administration of intravenous contrast. COMPARISON: MRI lumbar spine 01/11/2019. FINDINGS: Mild rightward lumbar curvature. Lumbar lordosis is maintained. Vertebral heights are preserved. No acute fracture or spondylolisthesis. No concerning bone marrow signal abnormalities. Normal conus terminates at L1. No pathologic intrathecal enhancement. T12-L1: No spinal canal or neural foraminal narrowing. Enhancement and edema within the left T12 transverse process at the left costotransverse junction. Asymmetric enhancement within the left neural foramen is nonspecific, though may be reactive and/or related to a venous plexus. L1-2: Worsening njsa-[id number]-saiirwra marrow edema within the anterior aspect of the vertebral bodies adjacent to anterior osteophytes. No spinal canal or neural foraminal narrowing. L2-3: No spinal canal or neural foraminal narrowing. L3-4: No spinal canal or neural foraminal narrowing. L4-5: Moderate disc degeneration. Mild disc height loss. Shallow, broad-based central disc protrusion, not significantly changed. Dorsal annular fissure. No spinal canal or neural foraminal narrowing. L5-S1: Mild disc degeneration. Mild annular bulge. No spinal canal or neural foraminal narrowing. Mild edema and enhancement along the lateral margin of the left articulating facets, nonspecific though potentially degenerative in etiology. Irregularity and erosive changes of the sacroiliac joints with degenerative fatty signal changes within the sacral ala and medial iliac bones. Mild asymmetric enhancement within the right sacroiliac joint without evidence for bone marrow edema. IMPRESSION: 1. Multilevel lumbar spondylosis without spinal canal or neural foraminal stenosis. 2. No acute fracture or pathologic intrathecal enhancement. 3. At T12-L1, new edema within the left T12 transverse process at the left costotransverse junction is likely degenerative in etiology. Asymmetric enhancement within the left neural foramen is nonspecific, though may be reactive and/or related to a venous plexus. 4. At L1-2, worsening edema within the anterior vertebral bodies likely represents a stress response in the setting of anterior osteophyte formation. 5. At L4-5, shallow broad-based central disc protrusion associated with a dorsal annular fissure, not significantly changed. 6. Irregularity and erosive changes of the sacroiliac joints with degenerative fatty signal changes within the sacral ala and medial iliac bones. There is mild asymmetric enhancement within the right sacroiliac joint without evidence for bone marrow edema. Correlate with history of and risk factors for sacroiliitis (including ankylosing spondylitis or inflammatory bowel disease). Dictated by Gareth Amaya MD @ Aug 23 2019 8:22PM Signed by Dr. Gareth Amaya @ Aug 23 2019 9:30PM
[2019-08-23] MEDS: Cyclobenzaprine 10 MG Tab PO PRN (20:22)
[2019-08-23] MEDS: Ketorolac 30 MG/ML SDV IV PRN (23:25)
[2019-08-24] MEDS: Gabapentin 300 MG Cap PO SCH (06:06)
--- NOTE | 2019-08-24 07:13 | PCM.DCSUM1 ---
<Justino Johnson - Last Filed: 08/24/19 15:00> Discharge Summary - Hospital Course Free Text/Narrative:: 34 y/o male who presented to the ER after noticing stool incontinence in the morning. He was admitted for further observation. MRI lumbar spine showed multilevel lumbar spondylosis. No spinal canal stenosis. Patient remained hemodynamically stable. His pain was at baseline and he was discharged home the following morning. He was prescribed Norflex 100 mg PO BID as needed for muscle spasms with instructions to follow-up with his PCP. - Discharge Data Discharge Date: 08/24/19 Discharge Disposition: Home, Self-Care 01 Condition: Good - Referral to Home Health Primary Care Physician: Justino Frankel MD - Patient Instructions Diet: Regular Diet as Tolerated, Drink 8-10+ Glasses/Day - Discharge Plan Prescriptions/Med Rec: Orphenadrine [Norflex] 100 mg PO BID PRN #14 tab PRN Reason: Spasms Home Medications: Home Meds Allopurinol [Zyloprim] 300 mg PO DAILY 02/14/17 [History] Lisinopril 10 mg PO DAILY 07/16/18 [History] Propranolol [Inderal] 20 mg PO TID 12/13/18 [History] Testosterone Cypionate 0.75 ml IM WEEKLY 12/13/18 [History] Gabapentin [Neurontin] 300 mg PO TID 12/15/18 [History] Diclofenac Sodium [Voltaren] 1 applic TOP ASDIRECTED PRN 06/13/19 [History] Tamsulosin HCl [Flomax] 0.4 mg PO DAILY 06/13/19 [History] methocarbamoL [Robaxin] 750 mg PO TID 06/13/19 [History] Naltrexone 0.5 mg PO DAILY 08/23/19 [History] Omeprazole 40 mg PO ACBREAKFAST 08/23/19 [History] Patient's Own Medication [Ptom] 1 applic TOP TID 08/23/19 [History] Orphenadrine [Norflex] 100 mg PO BID PRN #14 tab 08/24/19 [Rx] Patient Handouts: Chronic Back Pain, [id number], Orphenadrine tablets Referrals: [facility] [Outside] Justino Johnson MD [Primary Care Provider] - 08/31/19 1:00 pm (The appointment on the 5th was cancelled, due to the recent admission.) - Discharge Summary/Plan Comment DC Time >30 min.: No - Patient Data Vitals - Most Recent: Last Vital Signs Temp 36.1 C 08/24/19 04:40 Pulse 73 08/24/19 04:40 Resp 16 08/24/19 04:40 BP 129/80 08/24/19 04:40 Pulse Ox 95 08/24/19 04:40 Weight - Most Recent: 132.2 kg I&O - Last 24 hours: Intake & Output 08/23/19 08/24/19 08/24/19 22:59 06:59 14:59 Intake Total 950 950 Output Total 300 450 Balance 650 500 Lab Results - Last 24 hrs: Laboratory Results - last 24 hr 08/23/19 08/23/19 08/23/19 Range/Units 07:37 07:37 07:37 WBC 6.96 (4.0-11.0) K/uL RBC 5.79 (4.50-5.90) M/uL Hgb 18.1 H (13.0-17.0) g/dL Hct 52.3 H (38.0-50.0) % MCV 90.3 (80.0-98.0) fL MCH 31.3 (27.0-32.0) pg MCHC 34.6 (31.0-37.0) g/dL RDW Std Deviation 43.0 (28.0-62.0) fl RDW Coeff of James 13 (11.0-15.0) % Plt Count 220 (150-400) K/uL MPV 10.50 (7.40-12.00) fL Neut % (Auto) 55.4 (48.0-80.0) % Lymph % (Auto) 34.5 (16.0-40.0) % [place] % (Auto) 7.3 (0.0-15.0) % Eos % (Auto) 2.4 (0.0-7.0) % Baso % (Auto) 0.4 (0.0-1.5) % Neut # (Auto) 3.9 (1.4-5.7) K/uL Lymph # (Auto) 2.4 (0.6-2.4) K/uL [place] # (Auto) 0.5 (0.0-0.8) K/uL Eos # (Auto) 0.2 (0.0-0.7) K/uL Baso # (Auto) 0.0 (0.0-0.1) K/uL Nucleated RBC % 0.0 /100WBC Nucleated RBCs # 0 K/uL ESR 1 (0-14) mm/hr Sodium 139 (136-148) mmol/L Potassium 3.7 (3.5-5.1) mmol/L Chloride 103 (98-107) mmol/L Carbon Dioxide 24.4 (21.0-32.0) mmol/L BUN 15 (7.0-18.0) mg/dL Creatinine 0.9 (0.8-1.3) mg/dL Est Cr Clr Drug Dosing 123.18 mL/min Estimated GFR (MDRD) > 60.0 ml/min Glucose 113 H (74-106) mg/dL Calcium 9.3 (8.5-10.1) mg/dL C-Reactive Protein 1.60 H (0.00-0.90) mg/dL Urine Color Urine Appearance Urine pH (5.0-8.0) Ur Specific [place] (1.001-1.035) Urine Protein (NEGATIVE) mg/dL Urine Glucose (UA) (NEGATIVE) mg/dL Urine Ketones (NEGATIVE) mg/dL Urine Occult Blood (NEGATIVE) Urine Nitrite (NEGATIVE) Urine Bilirubin (NEGATIVE) Urine Ictotest Urine Urobilinogen (<2.0) EU/dL Ur Leukocyte Esterase (NEGATIVE) Urine RBC (0-2/HPF) Urine WBC (0-5/HPF) Ur Epithelial Cells (NONE-FEW) Urine Bacteria (NEGATIVE) 08/23/19 Range/Units 08:23 WBC (4.0-11.0) K/uL RBC (4.50-5.90) M/uL Hgb (13.0-17.0) g/dL Hct (38.0-50.0) % MCV (80.0-98.0) fL MCH (27.0-32.0) pg MCHC (31.0-37.0) g/dL RDW Std Deviation (28.0-62.0) fl RDW Coeff of James (11.0-15.0) % Plt Count (150-400) K/uL MPV (7.40-12.00) fL Neut % (Auto) (48.0-80.0) % Lymph % (Auto) (16.0-40.0) % [place] % (Auto) (0.0-15.0) % Eos % (Auto) (0.0-7.0) % Baso % (Auto) (0.0-1.5) % Neut # (Auto) (1.4-5.7) K/uL Lymph # (Auto) (0.6-2.4) K/uL [place] # (Auto) (0.0-0.8) K/uL Eos # (Auto) (0.0-0.7) K/uL Baso # (Auto) (0.0-0.1) K/uL Nucleated RBC % /100WBC Nucleated RBCs # K/uL ESR (0-14) mm/hr Sodium (136-148) mmol/L Potassium (3.5-5.1) mmol/L Chloride (98-107) mmol/L Carbon Dioxide (21.0-32.0) mmol/L BUN (7.0-18.0) mg/dL Creatinine (0.8-1.3) mg/dL Est Cr Clr Drug Dosing mL/min Estimated GFR (MDRD) ml/min Glucose (74-106) mg/dL Calcium (8.5-10.1) mg/dL C-Reactive Protein (0.00-0.90) mg/dL Urine Color YELLOW Urine Appearance CLEAR Urine pH 6.0 (5.0-8.0) Ur Specific [place] >= 1.030 (1.001-1.035) Urine Protein 100 H (NEGATIVE) mg/dL Urine Glucose (UA) NEGATIVE (NEGATIVE) mg/dL Urine Ketones 15 H (NEGATIVE) mg/dL Urine Occult Blood SMALL H (NEGATIVE) Urine Nitrite NEGATIVE (NEGATIVE) Urine Bilirubin SMALL H (NEGATIVE) Urine Ictotest NEGATIVE Urine Urobilinogen 0.2 (<2.0) EU/dL Ur Leukocyte Esterase NEGATIVE (NEGATIVE) Urine RBC 1-2 (0-2/HPF) Urine WBC 0-1 (0-5/HPF) Ur Epithelial Cells RARE (NONE-FEW) Urine Bacteria RARE (NEGATIVE) Med Orders - Current: Current Medications Acetaminophen (Tylenol) 650 mg PO Q4H PRN PRN Reason: Pain (Mild 1-3)/fever Last Admin: 08/23/19 17:34 Dose: 650 mg Albuterol (Proventil Neb Soln) 2.5 mg NEB Q2H PRN PRN Reason: Shortness Of Breath/wheezing Allopurinol (Zyloprim) 300 mg PO DAILY [facility] Bisacodyl (Dulcolax) 5 mg PO DAILY PRN PRN Reason: Constipation Cyclobenzaprine HCl (Flexeril) 10 mg PO TID PRN PRN Reason: Spasms Last Admin: 08/23/19 20:22 Dose: 10 mg Docusate Sodium (Colace) 100 mg PO BID PRN PRN Reason: Constipation Enoxaparin Sodium (Lovenox) 40 mg SUBCUT Q24H [facility] Last Admin: 08/23/19 12:06 Dose: 40 mg Gabapentin (Neurontin) 300 mg PO TID [facility] Last Admin: 08/24/19 06:06 Dose: 300 mg Ibuprofen (Motrin) 600 mg PO Q6H PRN PRN Reason: Pain (mild 1-3) Last Admin: 08/23/19 15:57 Dose: 600 mg Ketorolac Tromethamine (Toradol) 30 mg IV Q6H PRN PRN Reason: Pain (moderate 4-6) Stop: 08/27/19 11:15 Last Admin: 08/23/19 23:25 Dose: 30 mg Lisinopril (Prinivil) 10 mg PO DAILY [facility] Lorazepam (Ativan) 1 mg IVPUSH Q8H PRN PRN Reason: Anxiety Last Admin: 08/23/19 18:44 Dose: 1 mg Ondansetron HCl (Zofran Odt) 4 mg PO Q4H PRN PRN Reason: nausea, able to take PO Ondansetron HCl (Zofran) 4 mg IVPUSH Q4H PRN PRN Reason: Nausea Polyethylene Glycol (Miralax) 17 gm PO DAILY PRN PRN Reason: Constipation Tamsulosin HCl (Flomax) 0.4 mg PO DAILY [facility] Discontinued Medications Gadobenate Dimeglumine (Multihance) 20 ml IVPUSH ONETIME STA Stop: 08/23/19 18:53 Last Admin: 08/23/19 18:53 Dose: 20 ml Ibuprofen (Motrin) 600 mg PO ONETIME ONE Stop: 08/23/19 09:56 Last Admin: 08/23/19 10:03 Dose: 600 mg Lorazepam (Ativan) 1 mg IVPUSH ONETIME ONE Stop: 08/23/19 12:56 Last Admin: 08/23/19 13:10 Dose: 1 mg Orphenadrine Citrate (Norflex) 60 mg IM ONETIME ONE Stop: 08/23/19 11:22 Last Admin: 08/23/19 12:06 Dose: 60 mg <Robert Schwarz J - Last Filed: 08/25/19 16:23> Discharge Summary - Referral to Home Health Primary Care Physician: Justino Frankel MD - Patient Data Vitals - Most Recent: Last Vital Signs Temp 35.9 C L 08/24/19 11:23 Pulse 77 08/24/19 11:23 Resp 22 H 08/24/19 11:23 BP 139/69 08/24/19 11:23 Pulse Ox 95 08/24/19 11:23 Med Orders - Current: Current Medications Discontinued Medications Acetaminophen (Tylenol) 650 mg PO Q4H PRN PRN Reason: Pain (Mild 1-3)/fever Last Admin: 08/23/19 17:34 Dose: 650 mg Albuterol (Proventil Neb Soln) 2.5 mg NEB Q2H PRN PRN Reason: Shortness Of Breath/wheezing Allopurinol (Zyloprim) 300 mg PO DAILY [facility] Last Admin: 08/24/19 08:12 Dose: 300 mg Bisacodyl (Dulcolax) 5 mg PO DAILY PRN PRN Reason: Constipation Cyclobenzaprine HCl (Flexeril) 10 mg PO TID PRN PRN Reason: Spasms Last Admin: 08/24/19 12:01 Dose: 10 mg Docusate Sodium (Colace) 100 mg PO BID PRN PRN Reason: Constipation Enoxaparin Sodium (Lovenox) 40 mg SUBCUT Q24H [facility] Last Admin: 08/24/19 12:01 Dose: 40 mg Gabapentin (Neurontin) 300 mg PO TID [facility] Last Admin: 08/24/19 06:06 Dose: 300 mg Gadobenate Dimeglumine (Multihance) 20 ml IVPUSH ONETIME STA Stop: 08/23/19 18:53 Last Admin: 08/23/19 18:53 Dose: 20 ml Ibuprofen (Motrin) 600 mg PO ONETIME ONE Stop: 08/23/19 09:56 Last Admin: 08/23/19 10:03 Dose: 600 mg Ibuprofen (Motrin) 600 mg PO Q6H PRN PRN Reason: Pain (mild 1-3) Last Admin: 08/23/19 15:57 Dose: 600 mg Ketorolac Tromethamine (Toradol) 30 mg IV Q6H PRN PRN Reason: Pain (moderate 4-6) Stop: 08/27/19 11:15 Last Admin: 08/24/19 08:18 Dose: 30 mg Lisinopril (Prinivil) 10 mg PO DAILY [facility] Last Admin: 08/24/19 08:11 Dose: 10 mg Lorazepam (Ativan) 1 mg IVPUSH ONETIME ONE Stop: 08/23/19 12:56 Last Admin: 08/23/19 13:10 Dose: 1 mg Lorazepam (Ativan) 1 mg IVPUSH Q8H PRN PRN Reason: Anxiety Last Admin: 08/23/19 18:44 Dose: 1 mg Ondansetron HCl (Zofran Odt) 4 mg PO Q4H PRN PRN Reason: nausea, able to take PO Ondansetron HCl (Zofran) 4 mg IVPUSH Q4H PRN PRN Reason: Nausea Orphenadrine Citrate (Norflex) 60 mg IM ONETIME ONE Stop: 08/23/19 11:22 Last Admin: 08/23/19 12:06 Dose: 60 mg Polyethylene Glycol (Miralax) 17 gm PO DAILY PRN PRN Reason: Constipation Tamsulosin HCl (Flomax) 0.4 mg PO DAILY [facility] Last Admin: 08/24/19 08:12 Dose: 0.4 mg - Free Text/Narrative Note: I have seen and examined the patient with the resident. I have discussed the findings and treatment plan with the resident. I agree with the assessment and plan as outlined in the following note.
[2019-08-24] MEDS: Ketorolac 30 MG/ML SDV IV PRN (08:18)
[2019-08-24] MEDS ORDERED: Tamsulosin 0.4 MG Cap.ER PO SCH (09:00)
[2019-08-24] MEDS ORDERED: Allopurinol 300 MG Tab PO SCH (09:00)
[2019-08-24] MEDS ORDERED: Lisinopril 5 MG Tab PO SCH (09:00)
[2019-08-24 11:24] VITALS: BP 139/69; PULSE 77
[2019-08-24] MEDS: Cyclobenzaprine 10 MG Tab PO PRN (12:01)
[2019-08-24] MEDS: Enoxaparin 40 MG/0.4 ML Syringe SUBCUT SCH (12:01)
== END 2019-08-24 12:05 | disposition home or self-care (01) ==
LOC: MW.ED 07:22 → MW.MS 09:40
PROVIDERS: ADMIT Internal Medicine; ATTEND Internal Medicine
DX: R15.9 Full incontinence of feces (principal); G89.29 Other chronic pain; M47.816 Spondylosis without myelopathy or radiculopathy, lumbar region; M1A.9XX0 Chronic gout, unspecified, without tophus (tophi); I10 Essential (primary) hypertension; J45.909 Unspecified asthma, uncomplicated; G47.30 Sleep apnea, unspecified; E29.1 Testicular hypofunction; E66.9 Obesity, unspecified; Z68.41 Body mass index [BMI] 40.0-44.9, adult; Z79.899 Other long term (current) drug therapy; Z88.8 Allergy status to other drugs, medicaments and biological substances; Z99.89 Dependence on other enabling machines and devices
CPT/HCPCS: 36415; 72141; 72146; 72158; 80048; 81001; 85025; 85652; 86140; 86812; 96372; 99285; A9270; A9577; J1650; J1885; J2060; J2360; 99283